=== PATIENT | male | born 1955 | race Caucasian/White ===

== ENCOUNTER 2018-10-27 12:11 | Inpatient (IN) | payer MEDICAID ==
[~2018-10-27] VITALS: Ht 198.1 cm; Wt 96.2 kg
[2018-10-27 12:15] VITALS: BP 178/84
--- NOTE | 2018-10-27 12:15 | NUR ---
ED Nurse Note: BROUGHT IN BY RA 26 FROM HOME DUE TO ALOC. PER PT, HE MISSED DIALYSIS TODAY BECAUSE HE WAS FEELING "WIERD". PT STATES THAT HIS AMMONIA WAS OFF WHENEVER HE FELT THIS WAY. DIALYSIS DAYS ARE T//SAT.
--- NOTE | 2018-10-27 12:16 | NUR ---
ED Nurse Note: PROSTHTIC ON THE LEFT LEG
[2018-10-27] MEDS ORDERED: METOLAZONE5 MG PO (12:31)
[2018-10-27] MEDS ORDERED: LACTULOSE20 GM/301 ORAL (12:31)
[2018-10-27] MEDS ORDERED: METOPROLOL TAR100 M1 ORAL (12:31)
[2018-10-27] MEDS ORDERED: CATAPRES0.2 MG ORAL (12:31)
[2018-10-27] MEDS ORDERED: HYDRALAZINE HCL10 MG ORAL (12:31)
[2018-10-27] MEDS ORDERED: FERROUS SULFAT325 MG ORAL (12:31)
[2018-10-27] MEDS ORDERED: FOLIC ACID1 MG ORAL (12:31)
[2018-10-27] MEDS ORDERED: NIFEDIPINE ER60 M3 ORAL (12:31)
[2018-10-27 12:47] LABS: BASOPHILS % (AUTO) 2.5 % (0.0-2.0); EOSINOPHILS % (AUTO) 4.3 % (0.0-3.0); HEMATOCRIT 26.8 % (42.0-52.0); HEMOGLOBIN 8.8 G/DL (14.2-18.0); LYMPHOCYTES % (AUTO) 21.2 % (20.0-45.0); MEAN CORPUSCULAR VOLUME 94 FL (80-99); MONOCYTES % (AUTO) 10.3 % (1.0-10.0); NEUTROPHILS % (AUTO) 61.7 % (45.0-75.0); PLATELET COUNT 100 K/UL (150-450); RED BLOOD COUNT 2.87 M/UL (4.70-6.10); RED CELL DISTRIBUTION WIDTH 13.7 % (11.6-14.8)
[2018-10-27 12:57] LABS: SODIUM 138 MMOL/L (136-145)
[2018-10-27 13:00] LABS: INR 1.5 (0.9-1.1)
[2018-10-27 13:04] LABS: ANION GAP 8 mmol/L (5-15); BLOOD UREA NITROGEN 51 mg/dL (7-18); CALCIUM 8.1 MG/DL (8.5-10.1); CARBON DIOXIDE 23 MMOL/L (21-32); CHLORIDE 107 MMOL/L (98-107); CREATININE 4.8 MG/DL (0.55-1.30)
[2018-10-27 13:21] LABS: APPEARANCE,URINE CLEAR; BILIRUBIN, URINE NEGATIVE (NEGATIVE); COLOR,URINE PALE YELLOW; GLUCOSE, URINE (UA) 2+ (NEGATIVE); KETONES,URINE NEGATIVE (NEGATIVE); LEUKOCYTE ESTERASE ,URINE NEGATIVE (NEGATIVE); NITRITE,URINE NEGATIVE (NEGATIVE); PH,URINE 7 (4.5-8.0); PROTEIN,URINE 4+ (NEGATIVE); UROBILINOGEN,URINE NORMAL MG/DL (0.0-1.0)
[2018-10-27 13:24] LABS: AMMONIA 108 umol/L (11-32)
[2018-10-27 13:30] LABS: ALANINE AMINOTRANSFERASE 25 U/L (12-78); ALKALINE PHOSPHATASE 152 U/L (46-116); ASPARTATE AMINO TRANSFERASE 33 U/L (15-37); BILIRUBIN,TOTAL 0.5 MG/DL (0.2-1.0)
[2018-10-27 13:45] LABS: ALBUMIN 2.1 G/DL (3.4-5.0)
[2018-10-27 14:30] VITALS: BP 164/73
[2018-10-27] MEDS ORDERED: Lactulose 20gm/30ml UDC ORAL ONE (14:30)
--- NOTE | 2018-10-27 15:09 | NUR ---
ED Nurse Note: ATTEMPTED TO GIVE REPORT TO 4E, NO NURSE RECEIVED THE CALL AT THIS TIME. WILL CALL BACK.
--- NOTE | 2018-10-27 15:12 | Emergency Room Report ---
History of Present Illness General Chief Complaint: Altered Level of Consciousness Source: Patient, Family Member Present Illness HPI Patient presents emergency department today with acute altered mental status. Patient apparently has not been feeling well. And then was supposed to go to a bar still to get dialysis but because his confusion cannot make it. Patient was in alcoholic in the past has history of liver cirrhosis. His ammonia level fluctuant appears be elevated today according to patient's which is why seems to be confused or no other complaints are noted. Symptoms noted to be severe. No other modifying factors. No other associated signs and symptoms. No other complaints were noted. Allergies: Coded Allergies: No Known Allergies (Unverified , 10/27/18) Patient History Past Medical History: DM, HTN, renal disease, dialysis, other - Liver cirrhosis Past Surgical History: other - Jim catheter Pertinent Family History: none Social History: Denies: smoking, alcohol use, drug use Reviewed Nursing Documentation: PMH: Agreed; PSxH: Agreed Nursing Documentation-PMH Past Medical History: No History, Except For Hx Hypertension: Yes Hx Diabetes: Yes - cirrhosis Hx Dialysis: Yes - tue, thurs and sat Review of Systems All Other Systems: negative except mentioned in HPI Physical Exam Vital Signs Date Time Temp Pulse Resp B/P (MAP) Pulse Ox O2 Delivery O2 Flow Rate FiO2 10/27/18 12:11 99.3 78 18 176/82 100 Room Air Sp02 EP Interpretation: reviewed, normal General Appearance: alert, moderate distress Head: normocephalic, atraumatic Eyes: bilateral eye normal inspection ENT: normal ENT inspection, hearing grossly normal, normal voice Neck: normal inspection, full range of motion, supple, no bony tend Respiratory: no respiratory distress, no retraction, decreased breath sounds, crackles - Right lower lobe Cardiovascular #1: regular rate, rhythm, no edema Gastrointestinal: normal inspection, normal bowel sounds, non tender, soft, no guarding, no hernia Genitourinary: no CVA tenderness Musculoskeletal: back normal, normal range of motion, other - Left BKA Neurologic: normal inspection, alert, responsive, speech normal Psychiatric: normal inspection, depressed affect, anxious Skin: normal inspection, normal color, no rash Medical Decision Making Diagnostic Impression: Primary Impression: Altered level of consciousness Additional Impression: Hepatic encephalopathy ER Course Patient percent emergency department today with acute altered mental status. Differential considerations include acute electrolyte abnormality, acute infectious process, fluid overload just to name a few.Given the severity of the patient's presentation I felt this is a highly complex patient. This patient required extensive workup. Patient's laboratory workup shows an elevated ammonia level. Patient also has evidence of mild fluid overload. Patient will require admission for dialysis. Patient was given lactulose. Case was discussed in detail with Dr. Allison Baig and Dr. Bob Hogan. Patient will be admitted to [facility] for further treatment. Labs Test 10/27/18 12:30 10/27/18 12:45 White Blood Count 4.0 K/UL (4.8-10.8) Red Blood Count 2.87 M/UL (4.70-6.10) Hemoglobin 8.8 G/DL (14.2-18.0) Hematocrit 26.8 % (42.0-52.0) Mean Corpuscular Volume 94 FL (80-99) Mean Corpuscular Hemoglobin 30.8 PG (27.0-31.0) Mean Corpuscular Hemoglobin Concent 32.8 G/DL (32.0-36.0) Red Cell Distribution Width 13.7 % (11.6-14.8) Platelet Count 100 K/UL (150-450) Mean Platelet Volume 6.8 FL (6.5-10.1) Neutrophils (%) (Auto) 61.7 % (45.0-75.0) Lymphocytes (%) (Auto) 21.2 % (20.0-45.0) Monocytes (%) (Auto) 10.3 % (1.0-10.0) Eosinophils (%) (Auto) 4.3 % (0.0-3.0) Basophils (%) (Auto) 2.5 % (0.0-2.0) Prothrombin Time 15.2 SEC (9.30-11.50) Prothromb Time International Ratio 1.5 (0.9-1.1) Activated Partial Thromboplast Time 28 SEC (23-33) Sodium Level 138 MMOL/L (136-145) Potassium Level 5.0 MMOL/L (3.5-5.1) Chloride Level 107 MMOL/L (98-107) Carbon Dioxide Level 23 MMOL/L (21-32) Anion Gap 8 mmol/L (5-15) Blood Urea Nitrogen 51 mg/dL (7-18) Creatinine 4.8 MG/DL (0.55-1.30) Estimat Glomerular Filtration Rate 12.4 mL/min (>60) Glucose Level 179 MG/DL (74-106) Calcium Level 8.1 MG/DL (8.5-10.1) Total Bilirubin 0.5 MG/DL (0.2-1.0) Aspartate Amino Transf (AST/SGOT) 33 U/L (15-37) Alanine Aminotransferase (ALT/SGPT) 25 U/L (12-78) Alkaline Phosphatase 152 U/L (46-116) Ammonia 108 umol/L (11-32) Total Protein 6.3 G/DL (6.4-8.2) Albumin 2.1 G/DL (3.4-5.0) Globulin 4.2 g/dL Lipase 300 U/L (73-393) Urine Color Pale yellow Urine Appearance Clear Urine pH 7 (4.5-8.0) Urine Specific [place] 1.005 (1.005-1.035) Urine Protein 4+ (NEGATIVE) Urine Glucose (UA) 2+ (NEGATIVE) Urine Ketones Negative (NEGATIVE) Urine Blood 2+ (NEGATIVE) Urine Nitrite Negative (NEGATIVE) Urine Bilirubin Negative (NEGATIVE) Urine Urobilinogen Normal MG/DL (0.0-1.0) Urine Leukocyte Esterase Negative (NEGATIVE) Urine RBC 2-4 /HPF (0 - 0) Urine WBC 0 /HPF (0 - 0) Urine Squamous Epithelial Cells None /LPF (NONE/OCC) Urine Bacteria None /HPF (NONE) Chest X-Ray Diagnostic Results Chest X-Ray Diagnostic Results : Chest X-Ray Ordered: Yes # of Views/Limited/Complete: 1 View Indication: Shortness of Breath EP Interpretation: Yes Interpretation: no consolidation, other - Right pleural effusion. Jim catheter in place. Cardiomegaly. Left lower athlectasis Impression: Other - Pleural effusion Electronically Signed by: Electronically signed by Ajay Groves MD Last Vital Signs Date Time Temp Pulse Resp B/P (MAP) Pulse Ox O2 Delivery O2 Flow Rate FiO2 10/27/18 12:15 78 18 Room Air 10/27/18 12:15 99.3 178/84 100 Status: improved Disposition: ADMITTED INPATIENT Condition: Serious Referrals: NON PHYSICIAN (PCP) Ajay Groves MD Oct 27, 2018 15:12
--- NOTE | 2018-10-27 15:38 | NUR ---
ED Nurse Note: TELEPHONE REPORT GIVEN TO MELISSA SMILEY FROM 3E. PER MELISSA SMILEY, NO BED AVAILABLE AT THIS TIME, WILL CALL BACK WHEN THE BED IS READY. NOTIFIED SHARAD PRAKASH.
--- NOTE | 2018-10-27 15:51 | Consultation ---
Consult Note Consult Note asked to eval for dialysis management- Newly started on HD Was supposed to go to [facility] for dialysis today Patient presents emergency department today with acute altered mental status. Patient apparently has not been feeling well. And then was supposed to go to a bar still to get dialysis but because his confusion cannot make it. Patient was in alcoholic in the past has history of liver cirrhosis. His ammonia level fluctuant appears be elevated today according to patient's which is why seems to be confused or no other complaints are noted. Symptoms noted to be severe. No other modifying factors. No other associated signs and symptoms. No other complaints were noted. No Known Allergies (Unverified , 10/27/18) Past Medical History: DM, HTN, renal disease, dialysis, other - Liver cirrhosis Past Surgical History: other - Jim catheter Past Medical History: No History, Except For Hx Hypertension: Yes Hx Diabetes: Yes - cirrhosis Hx Dialysis: Yes - tue, thurs and sat seen in ER present examined data reviewed Assessment/Plan ESRD right permacath Hepatic Encephalopathy Anemia of CKD DM HTN HD in am lactulose Renal diet phos binders EPO BP meds per orders Bob Hogan MD Oct 27, 2018 15:51
[2018-10-27 16:20] VITALS: BP_SYST 169; BP_DIAS 78; BP_DIAS 89
--- NOTE | 2018-10-27 16:25 | NUR ---
TRANSFER TO FLOOR: Patient transferred to #[id number] as ordered via gurl[place]on with SUMA Zamora. Report given to MELISSA Martinez. Belongings given to patient. Family at the bedside. No s/s of distress.
--- NOTE | 2018-10-27 16:27 | Diagnostic Imaging Report ---
Indication: Cough Technique: One view of the chest Comparison: 11/10/2011 Findings: There is a right jugular tunneled dialysis catheter, tip of which projects at the level of the mid right innominate vein. There is a massive right pleural effusion, occupying well over 50% of the right hemithorax. There is crowding of the bronchovascular markings of the right lung and possibly some edema. There is a smaller but still sizable left pleural effusion. The heart is enlarged. Impression: Malpositioned tunneled dialysis catheter. This finding was discussed by phone with Dr. Hogan at the time of interpretation Massive right pleural effusion, occupying well over 50% of the right hemithorax Smaller but still sizable left pleural effusion
[2018-10-27 16:35] VITALS: BP 127/91
--- NOTE | 2018-10-27 17:50 | NUR ---
NURSE NOTES: Received report from Ben RN at 1538. Patient arrived to unit at 1632 via gurney accompanied by EMT. Belongings reviewed and present. Patient is alert and oriented x4, no s/s acute distress noted. VS assessed and stable. Patient came with LAC IV, but IV was accidentally pulled out by patient. Patient also has LORAINE AV shunt and right upper chest dialysis catheter, both are not accessed. Patient has left BKA with prosthesis. Fall precautions implemented. Patient has sacral non-blanchable redness. Photo taken and uploaded. Put calazime cream on sacrum and called central supply to send SPR mattress for patient. Called Dr. Mcpherson for further admit order and to inform MD of patient abnormal labs. Side rails upx3, bed low and locked, bed alarm armed, call light in reach. Will continue to monitor.
--- NOTE | 2018-10-27 18:30 | NUR ---
NURSE NOTES: Received callback from Dr. Mcpherson. MD is aware of patient's Hbg and platelets. MD ordered for ambulation as DVT prophylaxis due to RLE swelling and low platelet count. All orders entered. Limb alert band placed on patient and sign placed above bed. Will continue to monitor.
[2018-10-27] MEDS: Lactulose 20gm/30ml UDC ORAL SCH (18:42)
[2018-10-27] MEDS: HydrALAZINE 25mg tab ORAL SCH ×2 (18:43→23:45)
--- NOTE | 2018-10-27 19:45 | NUR ---
NURSE NOTES: Report taken from MELISSA Martinez. Patient is awake and in bed, A&Ox4, very talkative. Showing no signs of distress on room air. Does have a strong non-productive cough, usually occurs when he goes from sitting to lying down. No complaints of pain. Small stage 1 wound on left sacral/buttock area, applied calazime lotion continue to monitor. SPR mattress applied to bed. Having some trace swelling on his right LE. Prosthesis present on Left LE. Has a shunt on both is Right forearm and right clavicle area, bruits present. Dialysis T/TH/S. Patient has no IV site currently, will attempt to place new IV during shift. Bed in lowest position, call light within reach.
[2018-10-27 20:00] VITALS: BP 187/83
--- NOTE | 2018-10-27 20:14 | NUR ---
HAND-OFF: Report given to Rayo TORRES. Patient in stable condition.
[2018-10-27] MEDS: cloNIDine 0.2mg Tab ORAL SCH (21:17)
[2018-10-27] MEDS: Tamsulosin 0.4mg cap ORAL SCH (21:17)
[2018-10-27] MEDS: NovoLOG Insulin Flexpen SUBQ SCH (21:21)
[2018-10-28] VITALS (7 sets, daily range): BP systolic 109–151; BP diastolic 50–83
[2018-10-28] MEDS: HydrALAZINE 25mg tab ORAL SCH ×4 (06:19→23:35)
[2018-10-28] MEDS: Calcium Acetate 667mg Tab ORAL SCH ×3 (06:19→16:59)
[2018-10-28] MEDS: cloNIDine 0.2mg Tab ORAL SCH ×3 (06:19→22:00)
[2018-10-28] MEDS: NovoLOG Insulin Flexpen SUBQ SCH ×4 (06:22→20:48)
[2018-10-28 07:06] LABS: HEMATOCRIT 24.8 % (42.0-52.0); HEMOGLOBIN 8.1 G/DL (14.2-18.0); MEAN CORPUSCULAR VOLUME 95 FL (80-99); PLATELET COUNT 78 K/UL (150-450); RED BLOOD COUNT 2.62 M/UL (4.70-6.10); RED CELL DISTRIBUTION WIDTH 13.6 % (11.6-14.8); WHITE BLOOD COUNT 2.5 K/UL (4.8-10.8)
[2018-10-28 07:32] LABS: ALANINE AMINOTRANSFERASE 24 U/L (12-78); ALBUMIN 1.8 G/DL (3.4-5.0); ALBUMIN/GLOBULIN RATIO 0.5 (1.0-2.7); ALKALINE PHOSPHATASE 134 U/L (46-116); ANION GAP 12 mmol/L (5-15); ASPARTATE AMINO TRANSFERASE 26 U/L (15-37); BILIRUBIN,TOTAL 0.7 MG/DL (0.2-1.0); BLOOD UREA NITROGEN 54 mg/dL (7-18); CALCIUM 8.4 MG/DL (8.5-10.1); CARBON DIOXIDE 22 MMOL/L (21-32); CHLORIDE 109 MMOL/L (98-107); CHOLESTEROL 125 MG/DL (< 200); CREATINE KINASE 91 U/L (26-308); CREATININE 5.1 MG/DL (0.55-1.30); FERRITIN 296 NG/ML (8-388); GAMMA GLUTAMYL TRANSPEPTIDASE 45 U/L (5-85); HDL CHOLESTEROL 67 MG/DL (40-60); PHOSPHORUS 5.3 MG/DL (2.5-4.9); POTASSIUM 4.4 MMOL/L (3.5-5.1); SODIUM 142 MMOL/L (136-145); TRIGLYCERIDES 38 MG/DL (30-150)
--- NOTE | 2018-10-28 07:45 | NUR ---
HAND-OFF: Report given to MELISSA Carrasco.
--- NOTE | 2018-10-28 08:00 | NUR ---
NURSE NOTES: Received report from Rayo TORRES. pt a/a/o x4 laying in bed with no signs of distress or other issues at this time. pt's prosthesis in place with no skin issues. pt in a renal diet able to tolerated well. IV on the left hand gauge #24 heplock. call light within reach. bed in lowest position. side rales up x2. I will f/u as needed.
[2018-10-28 08:03] LABS: % IRON SATURATION 31 % (15-50); IRON 55 ug/dL (50-175); TOTAL IRON BINDING CAPACITY 179 ug/dL (250-450)
[2018-10-28] MEDS: Lactulose 20gm/30ml UDC ORAL SCH ×3 (10:02→17:02)
--- NOTE | 2018-10-28 10:03 | NUR ---
NURSE NOTES: Radiology notified regarding Dr. Arnett order regarding displaced dialysis port to adjust will continue to follow up.
--- NOTE | 2018-10-28 13:26 | Nephrology Progress Note ---
Assessment/Plan Problem List: (1) Hepatic encephalopathy (2) ESRD (end stage renal disease) (3) Hypertensive kidney disease (4) Diabetic nephropathy Assessment ESRD right permacath Hepatic Encephalopathy Anemia of CKD DM HTN Plan Right Permacath not in proper position- Radiology to redo / reposition HD in am lactulose Renal diet phos binders EPO BP meds per orders Subjective ROS Limited/Unobtainable: No Constitutional: Reports: malaise Objective Objective Last 24 Hour Vital Signs Date Time Temp Pulse Resp B/P (MAP) Pulse Ox O2 Delivery O2 Flow Rate FiO2 10/28/18 12:43 146/83 10/28/18 10:03 70 118/75 10/28/18 10:02 70 118/75 10/28/18 06:19 151/69 10/28/18 06:19 151/69 10/28/18 04:00 97.2 66 18 151/69 (96) 99 10/28/18 00:00 98.0 61 18 148/75 (99) 99 10/27/18 23:45 148/75 10/27/18 21:17 74 187/83 10/27/18 21:17 187/83 10/27/18 21:00 Room Air 10/27/18 20:00 98.5 74 20 187/83 (117) 98 10/27/18 18:43 127/91 10/27/18 17:40 Room Air 10/27/18 16:35 98.2 75 18 127/91 (103) 98 10/27/18 16:25 98.9 69 12 169/78 100 Room Air 10/27/18 16:20 98.9 70 12 169/78 100 Room Air 10/27/18 14:30 99.3 70 15 164/73 100 Room Air Intake and Output 10/27/18 10/28/18 19:00 07:00 Intake Total 240 ml Balance 240 ml Intake Oral 240 ml # Voids 1 # Bowel Movements 1 Laboratory Tests 10/28/18 06:00: White Blood Count 2.5L, Red Blood Count 2.62L, Hemoglobin 8.1L, Hematocrit 24.8L , Mean Corpuscular Volume 95, Mean Corpuscular Hemoglobin 31.0, Mean Corpuscular Hemoglobin Concent 32.7, Red Cell Distribution Width 13.6, Platelet Count 78L, Mean Platelet Volume 6.0L, Neutrophils (%) (Auto) , Lymphocytes (%) ( Auto) , Monocytes (%) (Auto) , Eosinophils (%) (Auto) , Basophils (%) (Auto) , Differential Total Cells Counted 100, Neutrophils % (Manual) 52, Lymphocytes % ( Manual) 36, Monocytes % (Manual) 8, Eosinophils % (Manual) 4H, Basophils % ( Manual) 0, Band Neutrophils 0, Platelet Estimate DecreasedL, Platelet Morphology Normal, Hypochromasia 1+, Sodium Level 142, Potassium Level 4.4, Chloride Level 109H, Carbon Dioxide Level 22, Anion Gap 12, Blood Urea Nitrogen 54H, Creatinine 5.1H, Estimat Glomerular Filtration Rate 11.6, Glucose Level 147H, Hemoglobin A1c 6.6H, Uric Acid 5.6, Calcium Level 8.4L, Phosphorus Level 5.3H, Magnesium Level 2.1, Iron Level 55, Total Iron Binding Capacity 179L, Percent Iron Saturation 31, Unsaturated Iron Binding 124, Ferritin 296, Total Bilirubin 0.7, Gamma Glutamyl Transpeptidase 45, Aspartate Amino Transf (AST/ SGOT) 26, Alanine Aminotransferase (ALT/SGPT) 24, Alkaline Phosphatase 134H, Total Creatine Kinase 91, Pro-B-Type Natriuretic Peptide 95953B, Total Protein 5.6L, Albumin 1.8L, Globulin 3.8, Albumin/Globulin Ratio 0.5L, Triglycerides Level 38, Cholesterol Level 125, LDL Cholesterol 56, HDL Cholesterol 67H, Cholesterol/HDL Ratio 1.9L, Vitamin B12 Level 1278H, Folate 32.1, Thyroid Stimulating Hormone (TSH) 2.603 Height (Feet): 6 Height (Inches): 5.00 Weight (Pounds): 216 General Appearance: no apparent distress Cardiovascular: normal rate Respiratory/Chest: decreased breath sounds Abdomen: distended Bob Hogan MD Oct 28, 2018 13:26
--- NOTE | 2018-10-28 14:16 | GI Initial Consult Note ---
History of Present Illness General Date patient seen: Oct 28, 2018 Time patient seen: 14:10 Reason for Hospitalization: Altered Level of Consciousness Referring physician: ALISIA KING Reason for Consultation: Hepatic encephalopathy Present Illness HPI Pt presents emergency department today with acute altered mental status. Patient apparently has not been feeling well. And then was supposed to go to a bar still to get dialysis but because his confusion cannot make it. Patient was in alcoholic in the past has history of liver cirrhosis. His ammonia level fluctuant appears be elevated today according to patient's which is why seems to be confused or no other complaints are noted. Symptoms noted to be severe. No other modifying factors. No other associated signs and symptoms. No other complaints were noted. GI consulted for hepatic encephalopathy. Patient seen, awake alert and oriented x4 no apparent distress. No active signs or symptoms of nausea or vomiting. The patient denies any melena emesis or coffee grounds. Denies any hematochezia or melena. Patient has a history of cirrhosis, admitted with an ammonia level of 108. In addition has pancytopenia and hyper coagulation. The patient stated stated he had a recent colonoscopy approximately 1 year ago, but cannot recall the results. Is unsure of his last endoscopy or imaging study, states it was done a long time ago. The patient also states that he recently had a thoracentesis a week ago with approximately 1 L of yield. Home Meds Reported Medications Lactulose (LACTULOSE*) 20 Gm/30 Ml Solution, ORAL, ML 0 Refills 10/27/18 Nifedipine Er* (NIFEDIPINE ER*) 60 Mg Tab.er.24, 60 MG ORAL DAILY, TAB 10/27/18 Ferrous Sulfate* (FERROUS SULFATE*) 325 Mg Tablet, 325 MG ORAL THREE TIMES A DAY , #90 TAB 0 Refills 10/27/18 Folic Acid* (FOLIC ACID*) 1 Mg Tablet, 1 MG ORAL DAILY, TAB 10/27/18 Metolazone (METOLAZONE) 5 Mg Tablet, 5 MG PO BID, TAB 10/27/18 Clonidine Hcl* (CATAPRES*) 0.2 Mg Tablet, 0.2 MG ORAL Q8HR, TAB 10/27/18 Metoprolol Tartrate* (METOPROLOL TARTRATE*) 100 Mg Tablet, 100 MG ORAL EVERY 12 HOURS, TAB 10/27/18 Hydralazine Hcl* (HYDRALAZINE HCL*) 10 Mg Tablet, 25 MG ORAL EVERY 6 HOURS, TAB 10/27/18 Med list reviewed/reconciled: Yes Allergies: Coded Allergies: No Known Allergies (Unverified , 10/27/18) Patient History History Provided By: Patient, Medical Record PMH Narrative Past Medical History: DM, HTN, renal disease, dialysis, other - Liver cirrhosis Past Surgical History: other - Jim catheter Pertinent Family History: none Social History: Denies: smoking, alcohol use, drug use Reviewed Nursing Documentation: PMH: Agreed; PSxH: Agreed Nursing Documentation-PMH Past Medical History: No History, Except For Hx Hypertension: Yes Hx Diabetes: Yes - cirrhosis Hx Dialysis: Yes - tue, thurs and sat Social History: Reports: alcohol use - History of abuse Review of Systems All Other Systems: negative except mentioned in HPI Physical Exam Vital Signs Date Time Temp Pulse Resp B/P (MAP) Pulse Ox O2 Delivery O2 Flow Rate FiO2 10/27/18 12:11 99.3 78 18 176/82 100 Room Air Sp02 EP Interpretation: reviewed, normal Labs Laboratory Tests Test 10/28/18 06:00 White Blood Count 2.5 K/UL (4.8-10.8) L Red Blood Count 2.62 M/UL (4.70-6.10) L Hemoglobin 8.1 G/DL (14.2-18.0) L Hematocrit 24.8 % (42.0-52.0) L Mean Corpuscular Volume 95 FL (80-99) Mean Corpuscular Hemoglobin 31.0 PG (27.0-31.0) Mean Corpuscular Hemoglobin Concent 32.7 G/DL (32.0-36.0) Red Cell Distribution Width 13.6 % (11.6-14.8) Platelet Count 78 K/UL (150-450) L Mean Platelet Volume 6.0 FL (6.5-10.1) L Neutrophils (%) (Auto) % (45.0-75.0) Lymphocytes (%) (Auto) % (20.0-45.0) Monocytes (%) (Auto) % (1.0-10.0) Eosinophils (%) (Auto) % (0.0-3.0) Basophils (%) (Auto) % (0.0-2.0) Differential Total Cells Counted 100 Neutrophils % (Manual) 52 % (45-75) Lymphocytes % (Manual) 36 % (20-45) Monocytes % (Manual) 8 % (1-10) Eosinophils % (Manual) 4 % (0-3) H Basophils % (Manual) 0 % (0-2) Band Neutrophils 0 % (0-8) Platelet Estimate Decreased L Platelet Morphology Normal Hypochromasia 1+ Sodium Level 142 MMOL/L (136-145) Potassium Level 4.4 MMOL/L (3.5-5.1) Chloride Level 109 MMOL/L (98-107) H Carbon Dioxide Level 22 MMOL/L (21-32) Anion Gap 12 mmol/L (5-15) Blood Urea Nitrogen 54 mg/dL (7-18) H Creatinine 5.1 MG/DL (0.55-1.30) H Estimat Glomerular Filtration Rate 11.6 mL/min (>60) Glucose Level 147 MG/DL (74-106) H Hemoglobin A1c 6.6 % (4.3-6.0) H Uric Acid 5.6 MG/DL (2.6-7.2) Calcium Level 8.4 MG/DL (8.5-10.1) L Phosphorus Level 5.3 MG/DL (2.5-4.9) H Magnesium Level 2.1 MG/DL (1.8-2.4) Iron Level 55 ug/dL (50-175) Total Iron Binding Capacity 179 ug/dL (250-450) L Percent Iron Saturation 31 % (15-50) Unsaturated Iron Binding 124 ug/dL (112-346) Ferritin 296 NG/ML (8-388) Total Bilirubin 0.7 MG/DL (0.2-1.0) Gamma Glutamyl Transpeptidase 45 U/L (5-85) Aspartate Amino Transf (AST/SGOT) 26 U/L (15-37) Alanine Aminotransferase (ALT/SGPT) 24 U/L (12-78) Alkaline Phosphatase 134 U/L (46-116) H Total Creatine Kinase 91 U/L (26-308) Pro-B-Type Natriuretic Peptide 05101 pg/mL (0-125) H Total Protein 5.6 G/DL (6.4-8.2) L Albumin 1.8 G/DL (3.4-5.0) L Globulin 3.8 g/dL Albumin/Globulin Ratio 0.5 (1.0-2.7) L Triglycerides Level 38 MG/DL (30-150) Cholesterol Level 125 MG/DL (< 200) LDL Cholesterol 56 mg/dL (<100) HDL Cholesterol 67 MG/DL (40-60) H Cholesterol/HDL Ratio 1.9 (3.3-4.4) L Vitamin B12 Level 1278 PG/ML (193-986) H Folate 32.1 NG/ML (8.6-58.9) Thyroid Stimulating Hormone (TSH) 2.603 uiU/mL (0.358-3.740) General Appearance: well appearing, no apparent distress, alert Head: normocephalic EENT: PERRL/EOMI, normal ENT inspection Neck: supple Respiratory: normal breath sounds, no respiratory distress Cardiovascular: normal rate Gastrointestinal: normal inspection, non tender, soft, normal bowel sounds, non -distended, other - Abdominal hernia Rectal: deferred Genitourinary: deferred Musculoskeletal: normal inspection, back normal Neurologic: normal inspection, alert, oriented x3, responsive Psychiatric: normal inspection, judgement/insight normal, memory normal Skin: normal inspection, normal color, no rash, warm/dry, palpation normal, well hydrated Lymphatic: normal inspection, no adenopathy Current Medications Current Medications Medications (Trade) Dose Ordered Sig/Elsa Route PRN Reason Start Time Stop Time Status Last Admin Dose Admin Acetaminophen (Tylenol) 650 mg Q4H PRN ORAL Mild Pain/Temp > 100.5 10/27/18 16:00 11/26/18 15:59 Calcium Acetate (Phoslo) 1,334 mg TIAC ORAL 10/28/18 16:30 11/27/18 06:29 Clonidine HCl (Catapres tab) 0.2 mg Q8HR ORAL 10/27/18 22:00 11/26/18 21:59 10/28/18 06:19 Dextrose (Dextrose 50%) 25 ml Q30M PRN IV Hypoglycemia 10/27/18 18:15 11/26/18 18:14 Dextrose (Dextrose 50%) 50 ml Q30M PRN IV Hypoglycemia 10/27/18 18:15 11/26/18 18:14 Epoetin Jesse (Procrit (for ESRD on dialysis)) 10,000 units FRI-FRI-FRI SUBQ 10/28/18 21:00 11/27/18 20:59 Hydralazine HCl (Apresoline) 25 mg EVERY 6 HOURS ORAL 10/27/18 18:00 11/26/18 17:59 10/28/18 12:43 Insulin Aspart (NovoLOG) BEFORE MEALS AND HS SUBQ 10/27/18 21:00 11/26/18 20:59 10/28/18 12:43 Lactulose (Cephulac) 30 gm THREE TIMES A DAY ORAL 10/27/18 18:00 11/26/18 17:59 10/28/18 12:42 Metoprolol Tartrate (Lopressor) 100 mg EVERY 12 HOURS ORAL 10/27/18 21:00 11/26/18 20:59 10/28/18 10:03 Nifedipine (Procardia XL) 60 mg DAILY ORAL 10/28/18 09:00 11/27/18 08:59 10/28/18 10:02 Pantoprazole (Protonix) 40 mg Q12HR ORAL 10/27/18 21:00 11/26/18 20:59 10/28/18 10:02 Rifaximin (Xifaxan) 550 mg EVERY 12 HOURS ORAL 10/28/18 21:00 11/04/18 20:59 Tamsulosin HCl (Flomax) 0.4 mg BEDTIME ORAL 10/27/18 21:00 11/26/18 20:59 10/27/18 21:17 GI: Plan Problems: (1) ESRD (end stage renal disease) (2) Hepatic encephalopathy (3) Fluid overload (4) Pancytopenia Plan Will consider endoscopy to evaluate anemia, esophageal varices given history of cirrhosis Continue lactulose, will add Xifaxan Advance to renal diet as tolerated Monitor H&H, PRN transfusions PPI Zofran as needed Repeat ammonia levels for tomorrow Discussed with Dr. Mendoza. Thank you for this patient referral, we will follow. The patient was seen and examined at bedside and all new and available data was reviewed in the patients chart. I agree with the above findings, impression and plan. (Patient seen earlier today. Signature stamp does not reflect patient encounter time.). - MD Sheryl Huerta,[facility] Oct 28, 2018 14:16
--- NOTE | 2018-10-28 15:18 | NUR ---
NURSE NOTES: patient out of the floor for tunnel cath placement. pt left the floor via gurney with no signs of distress or other issues at this time. I will f/u as needed.
[2018-10-28] MEDS ORDERED: Heparin Sod 1000 units/ml 10ml INJ SCH (15:30)
[2018-10-28] MEDS ORDERED: Lidocaine 2% 20mg/ml/Epi 0.005mg/ml 20ml vial INJ SCH (15:30)
[2018-10-28] MEDS ORDERED: Heparin 2000 units/Ns 1000ml INJ SCH (15:30)
--- NOTE | 2018-10-28 16:28 | Cardiology Report ---
APPROVED REPORT EXAM: Two-dimensional and M-mode echocardiogram with Doppler and color Doppler. INDICATION Congestive Heart Failure M-Mode DIMENSIONS IVSd1.3 (0.7-1.1cm)Left Atrium (MM)5.5 (1.6-4.0cm) LVDd5.8 (3.5-5.6cm)Aortic Root4.3 (2.0-3.7cm) PWd1.5 (0.7-1.1cm)Aortic Cusp Exc.2.0 (1.5-2.0cm) LVDs3.9 (2.5-4.0cm) PWs1.8 cm Normal left ventricular chamber size, systolic function and wall motion. Left ventricular ejection fraction estimated to be 55-60 %. Mild left ventricular hypertrophy by 2D. No evidence of pericardial effusion. Moderate left atrial enlargement. Mild right atrial enlargement. Right ventricular chamber size is within normal limits. Focal aortic valve sclerosis with adequate cusp excursion. Thickened mitral valve leaflets with normal excursion. Mitral annulus and aortic root calcification. Pulmonic valve not well visualized. Normal tricuspid valve structure. IVC dilated at 3.1 cm with slight physiologic collapse, suggestive of increased RA pressure. A color flow and spectral Doppler study was performed and revealed: Trace aortic regurgitation. Mild to moderate mitral regurgitation. Mitral diastolic velocities suggest reduced left ventricular relaxation c/w mild LV diastolic dysfunction (Grade I). Mild tricuspid regurgitation. Tricuspid systolic velocities suggests peak right ventricular systolic pressure of 50 mmHg, consistent with moderate pulmonary hypertension.
--- NOTE | 2018-10-28 19:38 | NUR ---
HAND-OFF: Report given to Rayo TORRES, pt in stable condition.
--- NOTE | 2018-10-28 19:39 | NUR ---
NURSE NOTES: Report taken from MELISSA Vargas. Patient awake and in bed. patients speech is somewhat slurred, but is A&Ox4. Is showing sings of distress, SOB upon exertion as well as at rest with talking. Has a non-productive cough that has been bothering him. O2 stats at 94. RN notified MD and got order for nasal canula. No pain. Wound on left sacral/buttock area assessed, intact, applied calazime, continue to monitor. IV site c/d/i and patent. Patient able to use bedside commode. Prosthesis off for the evening. Contacted [facility] [phone], will be in 10/29 for dialysis. Bed in lowest position, call light within reach.
[2018-10-28] MEDS: Tamsulosin 0.4mg cap ORAL SCH (20:49)
[2018-10-28] MEDS: Epoetin Alfa(ESRD on dialysis)10,000 unit/ml vial SUBQ SCH (20:49)
--- NOTE | 2018-10-28 22:07 | NUR ---
NURSE NOTES: Held Clonidine (BP<130) per MD order. BP: 117/51
[2018-10-29] VITALS (11 sets, daily range): BP systolic 125–138; BP diastolic 53–74
--- NOTE | 2018-10-29 01:45 | History and Physical Report ---
DATE OF ADMISSION: 10/27/2018 HISTORY OF PRESENT ILLNESS: The patient fluid overload, confusion, and shortness of breath. The patient has left BKA. The patient has a history of alcohol abuse. Has also end-stage renal disease, . The patient has hepatic encephalopathy. He is admitted for AMS. He is on dialysis, has alcoholic cirrhosis and also has elevated ammonia and anemia. Denies nausea, vomiting, or diarrhea. PAST MEDICAL HISTORY: Significant for end-stage renal disease, on hemodialysis, alcoholic cirrhosis, diabetes, history of pancytopenia, and hypertension. PAST SURGICAL HISTORY: Left BKA, dialysis access on the chest wall. SOCIAL HISTORY: History of drug abuse, history of alcohol abuse. FAMILY HISTORY: Noncontributory. REVIEW OF SYSTEMS: HEENT: Denies headaches. RESPIRATORY: Reports shortness of breath. Denies cough. CARDIOVASCULAR: No chest pain. No orthopnea. GASTROINTESTINAL: Denies nausea, vomiting, or diarrhea. Does have mild abdominal pain. CENTRAL NERVOUS SYSTEM: No change in vision or speech pattern, however, did have more confusion yesterday. PHYSICAL EXAMINATION: VITAL SIGNS: Temperature 97.4, pulse is 67, and blood pressure 146/82. HEENT: PERRLA. NECK: Supple. No lymphadenopathy. CHEST: Clear to auscultation. CARDIOVASCULAR: Regular rate and rhythm. No murmurs or extra sounds. GASTROINTESTINAL: Abdomen is distended. Positive bowel sounds. No organomegaly. EXTREMITIES: Has 1+ edema. Reflexes are equal on both sides. NEUROLOGIC: Oriented x2. Moves all four extremities. LABORATORY DATA: WBC of 4, hemoglobin 8.8, and platelets of 100. Sodium 138, potassium 5, BUN of 51, creatinine 4.8, glucose of 179, and ammonia of 108. ASSESSMENT AND PLAN: 1. Pancytopenia. 2. Anemia. 3. End-stage renal disease, on hemodialysis. 4. AMS, could be also possibly due to elevated ammonia level and the patient on dialysis. I have consulted Dr. Mendoza and Dr. Hogan for the management of the above-mentioned diagnoses and treatment. Allison Mcpherson M.D. DR: SAM JOB#: [id number] CC:
[2018-10-29] MEDS: cloNIDine 0.2mg Tab ORAL SCH ×3 (05:47→22:00)
[2018-10-29] MEDS: Calcium Acetate 667mg Tab ORAL SCH ×3 (05:48→17:59)
[2018-10-29] MEDS: HydrALAZINE 25mg tab ORAL SCH ×3 (05:48→17:52)
[2018-10-29] MEDS: NovoLOG Insulin Flexpen SUBQ SCH ×4 (05:52→21:31)
[2018-10-29 06:35] LABS: HEMATOCRIT 25.8 % (42.0-52.0); HEMOGLOBIN 8.4 G/DL (14.2-18.0); MEAN CORPUSCULAR VOLUME 94 FL (80-99); PLATELET COUNT 84 K/UL (150-450); RED BLOOD COUNT 2.74 M/UL (4.70-6.10); RED CELL DISTRIBUTION WIDTH 13.9 % (11.6-14.8)
--- NOTE | 2018-10-29 07:05 | NUR ---
HAND-OFF: Report given to MELISSA Peoples. Patient vitals stable. Going for HD today.
--- NOTE | 2018-10-29 07:07 | NUR ---
NURSE NOTES: Report received from MELISSA Cade. pt in bed, awake, talkative, A/O x4, no complaints of pain, no apparent distress noted, call light within reach, bed in lowest position.
[2018-10-29 07:17] LABS: ALANINE AMINOTRANSFERASE 21 U/L (12-78); ALBUMIN 1.8 G/DL (3.4-5.0); ALBUMIN/GLOBULIN RATIO 0.5 (1.0-2.7); ALKALINE PHOSPHATASE 133 U/L (46-116); ANION GAP 11 mmol/L (5-15); ASPARTATE AMINO TRANSFERASE 23 U/L (15-37); BILIRUBIN,TOTAL 0.7 MG/DL (0.2-1.0); BLOOD UREA NITROGEN 59 mg/dL (7-18); CALCIUM 8.7 MG/DL (8.5-10.1); CARBON DIOXIDE 20 MMOL/L (21-32); CHLORIDE 111 MMOL/L (98-107); CREATININE 5.8 MG/DL (0.55-1.30); PHOSPHORUS 5.3 MG/DL (2.5-4.9); POTASSIUM 4.3 MMOL/L (3.5-5.1); SODIUM 142 MMOL/L (136-145)
[2018-10-29 07:20] LABS: AMMONIA 61 umol/L (11-32)
[2018-10-29] MEDS: Lactulose 20gm/30ml UDC ORAL SCH ×3 (09:23→17:59)
--- NOTE | 2018-10-29 10:40 | GI Progress Note ---
Assessment/Plan Problems: (1) Hepatic encephalopathy ICD Codes: K72.90 - Hepatic failure, unspecified without coma SNOMED: 40840079 (2) Fluid overload ICD Codes: E87.70 - Fluid overload, unspecified SNOMED: 12733844 (3) Pancytopenia ICD Codes: D61.818 - Other pancytopenia SNOMED: 562803948 (4) Hypertensive kidney disease ICD Codes: I12.9 - Hypertensive chronic kidney disease with stage 1 through stage 4 chronic kidney disease, or unspecified chronic kidney disease SNOMED: 33231927 (5) Diabetic nephropathy ICD Codes: E11.21 - Type 2 diabetes mellitus with diabetic nephropathy SNOMED: 537069050 (6) ESRD (end stage renal disease) ICD Codes: N18.6 - End stage renal disease SNOMED: 00155852 (7) Altered level of consciousness ICD Codes: R40.4 - Transient alteration of awareness SNOMED: 1600844 Status: stable Status Narrative Discussed with Dr. Mendoza Assessment/Plan EGD scheduled tomorrow to evaluate anemia, esophageal varices given history of cirrhosis. NPO @ MD. Continue lactulose, will add Xifaxan Advance to renal diet as tolerated Monitor H&H, PRN transfusions PPI Zofran as needed trend ammonia levels dc planning The patient was seen and examined at bedside and all new and available data was reviewed in the patients chart. I agree with the above findings, impression and plan. (Patient seen earlier today. Signature stamp does not reflect patient encounter time.). - Karan Mendoza MD Subjective Gastrointestinal/Abdominal: Reports: no symptoms Objective Last 24 Hour Vital Signs Date Time Temp Pulse Resp B/P (MAP) Pulse Ox O2 Delivery O2 Flow Rate FiO2 10/29/18 09:24 69 131/57 10/29/18 09:23 69 131/57 10/29/18 09:00 Nasal Cannula 3.0 10/29/18 08:00 97.6 69 20 131/57 (81) 96 10/29/18 05:48 125/54 10/29/18 05:47 125/54 10/29/18 04:00 98.3 67 18 125/54 (77) 96 10/28/18 23:59 97.5 62 18 128/62 (84) 96 10/28/18 23:35 128/62 10/28/18 22:00 117/51 10/28/18 21:00 Nasal Cannula 2.0 10/28/18 21:00 97.9 65 16 131/65 (87) 94 10/28/18 20:49 65 131/65 10/28/18 18:00 109/45 10/28/18 16:00 97.3 61 19 109/50 (69) 100 10/28/18 14:00 127/59 10/28/18 12:43 146/83 10/28/18 12:00 97.4 57 19 146/83 (104) 100 Intake and Output 10/28/18 10/29/18 19:00 07:00 Intake Total 460 ml 240 ml Balance 460 ml 240 ml Intake Oral 460 ml 240 ml # Voids 1 Laboratory Tests Test 10/29/18 05:45 White Blood Count 3.0 K/UL (4.8-10.8) L Red Blood Count 2.74 M/UL (4.70-6.10) L Hemoglobin 8.4 G/DL (14.2-18.0) L Hematocrit 25.8 % (42.0-52.0) L Mean Corpuscular Volume 94 FL (80-99) Mean Corpuscular Hemoglobin 30.8 PG (27.0-31.0) Mean Corpuscular Hemoglobin Concent 32.7 G/DL (32.0-36.0) Red Cell Distribution Width 13.9 % (11.6-14.8) Platelet Count 84 K/UL (150-450) L Mean Platelet Volume 6.0 FL (6.5-10.1) L Neutrophils (%) (Auto) % (45.0-75.0) Lymphocytes (%) (Auto) % (20.0-45.0) Monocytes (%) (Auto) % (1.0-10.0) Eosinophils (%) (Auto) % (0.0-3.0) Basophils (%) (Auto) % (0.0-2.0) Differential Total Cells Counted 100 Neutrophils % (Manual) 67 % (45-75) Lymphocytes % (Manual) 23 % (20-45) Monocytes % (Manual) 7 % (1-10) Eosinophils % (Manual) 3 % (0-3) Basophils % (Manual) 0 % (0-2) Band Neutrophils 0 % (0-8) Platelet Estimate Decreased L Platelet Morphology Normal Hypochromasia 1+ Sodium Level 142 MMOL/L (136-145) Potassium Level 4.3 MMOL/L (3.5-5.1) Chloride Level 111 MMOL/L (98-107) H Carbon Dioxide Level 20 MMOL/L (21-32) L Anion Gap 11 mmol/L (5-15) Blood Urea Nitrogen 59 mg/dL (7-18) H Creatinine 5.8 MG/DL (0.55-1.30) H Estimat Glomerular Filtration Rate 10.0 mL/min (>60) Glucose Level 189 MG/DL (74-106) H Calcium Level 8.7 MG/DL (8.5-10.1) Phosphorus Level 5.3 MG/DL (2.5-4.9) H Total Bilirubin 0.7 MG/DL (0.2-1.0) Aspartate Amino Transf (AST/SGOT) 23 U/L (15-37) Alanine Aminotransferase (ALT/SGPT) 21 U/L (12-78) Alkaline Phosphatase 133 U/L (46-116) H Ammonia 61 umol/L (11-32) H C-Reactive Protein, Quantitative 4.5 mg/dL (0.00-0.90) H Pro-B-Type Natriuretic Peptide 51466 pg/mL (0-125) H Total Protein 5.7 G/DL (6.4-8.2) L Albumin 1.8 G/DL (3.4-5.0) L Globulin 3.9 g/dL Albumin/Globulin Ratio 0.5 (1.0-2.7) L Height (Feet): 6 Height (Inches): 5.00 Weight (Pounds): 216 General Appearance: WD/WN, no apparent distress, alert Cardiovascular: normal rate Respiratory/Chest: normal breath sounds, no respiratory distress Abdominal Exam: normal bowel sounds, non tender, soft Extremities: normal range of motion, non-tender Kadeem Saucedo NP Oct 29, 2018 10:40
--- NOTE | 2018-10-29 11:02 | General Progress Note ---
Assessment/Plan Problem List: (1) Hepatic encephalopathy ICD Codes: K72.90 - Hepatic failure, unspecified without coma SNOMED: 60091466 (2) ESRD (end stage renal disease) ICD Codes: N18.6 - End stage renal disease SNOMED: 04211544 (3) Hypertensive kidney disease ICD Codes: I12.9 - Hypertensive chronic kidney disease with stage 1 through stage 4 chronic kidney disease, or unspecified chronic kidney disease SNOMED: 87969499 (4) Diabetic nephropathy ICD Codes: E11.21 - Type 2 diabetes mellitus with diabetic nephropathy SNOMED: 519854214 (5) Fluid overload ICD Codes: E87.70 - Fluid overload, unspecified SNOMED: 68560986 (6) Pancytopenia ICD Codes: D61.818 - Other pancytopenia SNOMED: 014134042 (7) Altered level of consciousness ICD Codes: R40.4 - Transient alteration of awareness SNOMED: 9985791 Status: progressing Assessment/Plan etoh cihhrosis check ammonia level ams due to worsening ammonia?dm htn moniter vitals esrd on hd htn check lytes Subjective ROS Limited/Unobtainable: Yes Allergies: Coded Allergies: No Known Allergies (Unverified , 10/27/18) Objective Last 24 Hour Vital Signs Date Time Temp Pulse Resp B/P (MAP) Pulse Ox O2 Delivery O2 Flow Rate FiO2 10/29/18 09:24 69 131/57 10/29/18 09:23 69 131/57 10/29/18 09:00 Nasal Cannula 3.0 10/29/18 08:00 97.6 69 20 131/57 (81) 96 10/29/18 05:48 125/54 10/29/18 05:47 125/54 10/29/18 04:00 98.3 67 18 125/54 (77) 96 10/28/18 23:59 97.5 62 18 128/62 (84) 96 10/28/18 23:35 128/62 10/28/18 22:00 117/51 10/28/18 21:00 Nasal Cannula 2.0 10/28/18 21:00 97.9 65 16 131/65 (87) 94 10/28/18 20:49 65 131/65 10/28/18 18:00 109/45 10/28/18 16:00 97.3 61 19 109/50 (69) 100 10/28/18 14:00 127/59 10/28/18 12:43 146/83 10/28/18 12:00 97.4 57 19 146/83 (104) 100 Intake and Output 10/28/18 10/29/18 19:00 07:00 Intake Total 460 ml 240 ml Balance 460 ml 240 ml Intake Oral 460 ml 240 ml # Voids 1 Laboratory Tests 10/29/18 05:45: White Blood Count 3.0L, Red Blood Count 2.74L, Hemoglobin 8.4L, Hematocrit 25.8L , Mean Corpuscular Volume 94, Mean Corpuscular Hemoglobin 30.8, Mean Corpuscular Hemoglobin Concent 32.7, Red Cell Distribution Width 13.9, Platelet Count 84L, Mean Platelet Volume 6.0L, Neutrophils (%) (Auto) , Lymphocytes (%) ( Auto) , Monocytes (%) (Auto) , Eosinophils (%) (Auto) , Basophils (%) (Auto) , Differential Total Cells Counted 100, Neutrophils % (Manual) 67, Lymphocytes % ( Manual) 23, Monocytes % (Manual) 7, Eosinophils % (Manual) 3, Basophils % ( Manual) 0, Band Neutrophils 0, Platelet Estimate DecreasedL, Platelet Morphology Normal, Hypochromasia 1+, Sodium Level 142, Potassium Level 4.3, Chloride Level 111H, Carbon Dioxide Level 20L, Anion Gap 11, Blood Urea Nitrogen 59H, Creatinine 5.8H, Estimat Glomerular Filtration Rate 10.0, Glucose Level 189H, Calcium Level 8.7, Phosphorus Level 5.3H, Total Bilirubin 0.7, Aspartate Amino Transf (AST/SGOT) 23, Alanine Aminotransferase (ALT/SGPT) 21, Alkaline Phosphatase 133H, Ammonia 61H, C-Reactive Protein, Quantitative 4.5H, Pro-B-Type Natriuretic Peptide 83539E, Total Protein 5.7L, Albumin 1.8L, Globulin 3.9, Albumin/Globulin Ratio 0.5L Height (Feet): 6 Height (Inches): 5.00 Weight (Pounds): 216 General Appearance: confused Cardiovascular: normal rate Respiratory/Chest: lungs clear Abdomen: soft Allison Mcpherson MD Oct 29, 2018 11:02
--- NOTE | 2018-10-29 11:52 | Nephrology Progress Note ---
Assessment/Plan Problem List: (1) Hepatic encephalopathy (2) ESRD (end stage renal disease) (3) Hypertensive kidney disease (4) Diabetic nephropathy Assessment ESRD right permacath Hepatic Encephalopathy Anemia of CKD DM HTN Plan Right Permacath not in proper position- Radiology to redo / reposition HD today 10/29 lactulose Renal diet phos binders EPO BP meds per orders Subjective ROS Limited/Unobtainable: No Constitutional: Reports: malaise Objective Objective Last 24 Hour Vital Signs Date Time Temp Pulse Resp B/P (MAP) Pulse Ox O2 Delivery O2 Flow Rate FiO2 10/29/18 09:24 69 131/57 10/29/18 09:23 69 131/57 10/29/18 09:00 Nasal Cannula 3.0 10/29/18 08:00 97.6 69 20 131/57 (81) 96 10/29/18 05:48 125/54 10/29/18 05:47 125/54 10/29/18 04:00 98.3 67 18 125/54 (77) 96 10/28/18 23:59 97.5 62 18 128/62 (84) 96 10/28/18 23:35 128/62 10/28/18 22:00 117/51 10/28/18 21:00 Nasal Cannula 2.0 10/28/18 21:00 97.9 65 16 131/65 (87) 94 10/28/18 20:49 65 131/65 10/28/18 18:00 109/45 10/28/18 16:00 97.3 61 19 109/50 (69) 100 10/28/18 14:00 127/59 10/28/18 12:43 146/83 10/28/18 12:00 97.4 57 19 146/83 (104) 100 Intake and Output 10/28/18 10/29/18 19:00 07:00 Intake Total 460 ml 240 ml Balance 460 ml 240 ml Intake Oral 460 ml 240 ml # Voids 1 Laboratory Tests 10/29/18 05:45: White Blood Count 3.0L, Red Blood Count 2.74L, Hemoglobin 8.4L, Hematocrit 25.8L , Mean Corpuscular Volume 94, Mean Corpuscular Hemoglobin 30.8, Mean Corpuscular Hemoglobin Concent 32.7, Red Cell Distribution Width 13.9, Platelet Count 84L, Mean Platelet Volume 6.0L, Neutrophils (%) (Auto) , Lymphocytes (%) ( Auto) , Monocytes (%) (Auto) , Eosinophils (%) (Auto) , Basophils (%) (Auto) , Differential Total Cells Counted 100, Neutrophils % (Manual) 67, Lymphocytes % ( Manual) 23, Monocytes % (Manual) 7, Eosinophils % (Manual) 3, Basophils % ( Manual) 0, Band Neutrophils 0, Platelet Estimate DecreasedL, Platelet Morphology Normal, Hypochromasia 1+, Sodium Level 142, Potassium Level 4.3, Chloride Level 111H, Carbon Dioxide Level 20L, Anion Gap 11, Blood Urea Nitrogen 59H, Creatinine 5.8H, Estimat Glomerular Filtration Rate 10.0, Glucose Level 189H, Calcium Level 8.7, Phosphorus Level 5.3H, Total Bilirubin 0.7, Aspartate Amino Transf (AST/SGOT) 23, Alanine Aminotransferase (ALT/SGPT) 21, Alkaline Phosphatase 133H, Ammonia 61H, C-Reactive Protein, Quantitative 4.5H, Pro-B-Type Natriuretic Peptide 15655T, Total Protein 5.7L, Albumin 1.8L, Globulin 3.9, Albumin/Globulin Ratio 0.5L Height (Feet): 6 Height (Inches): 5.00 Weight (Pounds): 216 General Appearance: no apparent distress Cardiovascular: normal rate Respiratory/Chest: decreased breath sounds Abdomen: soft Objective no change Bob Hogan MD Oct 29, 2018 11:52
[2018-10-29] MEDS ORDERED: Heparin Sod 1000 units/ml 10ml ONE (14:10)
[2018-10-29] MEDS ORDERED: LORazepam Inj 2mg/ml 1ml ONE (14:19)
[2018-10-29] MEDS ORDERED: LORazepam Inj 2mg/ml 1ml IV SCH (14:30)
--- NOTE | 2018-10-29 14:35 | Pre-Procedure Note/Attestation ---
Pre-Procedure Note/Attestation Complete Prior to Procedure Planned Procedure: right Procedure Narrative: Permacath exchange Indications for Procedure Pre-Operative Diagnosis: malpositioned permacath Attestation I attest that I discussed the nature of the procedure; its benefits; risks and complications; and alternatives (and the risks and benefits of such alternatives ), prior to the procedure, with the patient (or the patient's legal claim service representative). I attest that, if there was a reasonable possibility of needing a blood transfusion, the patient (or the patient's legal claim service representative) was given the [facility] standardized written summary, pursuant to the Jefry Jeremy Blood Safety Act ([place] Health and Safety Code # 1645, as amended). I attest that I re-evaluated the patient just prior to the surgery and that there has been no change in the patient's H&P, except as documented below: Bryce Rincon MD Oct 29, 2018 14:35
--- NOTE | 2018-10-29 15:23 | Brief Operative Note ---
Immediate Post Operative Note Operative Note Pre-op Diagnosis: malpositioned permacath Procedure: permacath exchange Post-op Diagnosis: same as pre-op Findings: consistent w/pre-op dx studies Surgeon: Chely RINCON Anesthesia: local Specimen: yes - old permacath sent to path for gross Complications: none Condition: stable Fluids: none Estimated Blood Loss: none Implant(s) used?: Yes - new 28 cm palindrome catheter placed Bryce Rincon MD Oct 29, 2018 15:23
[2018-10-29] MEDS ORDERED: Lidocaine 2% 20mg/ml/Epi 0.005mg/ml 20ml vial ONE (15:24)
[2018-10-29] MEDS ORDERED: ceFAZolin sod 1 GM in D5W 55 ML IVPB ONE (15:30)
--- NOTE | 2018-10-29 16:00 | Diagnostic Imaging Report ---
Indications: Malpositioned dialysis catheter demonstrated on prior chest radiograph Technique: Patient given IV Ancef. Procedural timeout performed. Total sterile technique, including sterile probe cover and sterile gel, sterile gloves, hand hygiene, hat, mask, sterile gown, large sterile drape, and preparation with 2% chlorhexidine utilized. Local anesthesia with 1% lidocaine. An Amplatz guidewire was directed through the venous lumen of the pre-existing catheter, and under fluoroscopic guidance directed into the inferior vena cava. The catheter was removed over the guidewire. A 28 cm long palindrome catheter was then loaded over the guidewire, and advanced under direct fluoroscopic supervision. The cough was placed just deep to the entry site, tip in the high right atrium Digital radiograph documents satisfactory catheter tip position in the high right atrium, no kinking at the insertion site. Both catheter ports aspirated and flushed. Catheter was fixed to the skin. Patient tolerated procedure well without immediate complication. Total fluoroscopy time 37.2 seconds. Total dose area product 0.01310 mGym2 Total number of images-3 Comparison: None. Findings: Completion radiograph documents satisfactory position and course of the catheter, catheter tip at the cavoatrial junction. Impression: Successful exchange of right transjugular tunneled dialysis catheter, as described above
--- NOTE | 2018-10-29 19:42 | NUR ---
HAND-OFF: Report given to MELISSA Gonzalez.
--- NOTE | 2018-10-29 22:08 | NUR ---
NURSE NOTES: Patient in bed, aox3, drowsy, confusion noted. Patient reoriented. Per MELISSA Peoples Patient given ativan 2 mg in radiology. Will continue to monitor. Porticath dressing c/d/i . Due meds given, needs attended to. Bed low, call light within reach.
[2018-10-29] MEDS: Tamsulosin 0.4mg cap ORAL SCH (22:33)
[2018-10-30] VITALS (11 sets, daily range): BP systolic 109–133; BP diastolic 57–68
[2018-10-30] MEDS: HydrALAZINE 25mg tab ORAL SCH ×4 (00:07→17:32)
[2018-10-30] MEDS: cloNIDine 0.2mg Tab ORAL SCH ×3 (06:00→22:00)
[2018-10-30] MEDS: Calcium Acetate 667mg Tab ORAL SCH ×3 (06:21→17:32)
[2018-10-30] MEDS: NovoLOG Insulin Flexpen SUBQ SCH ×4 (06:25→22:04)
[2018-10-30 06:55] LABS: INR 1.6 (0.9-1.1)
[2018-10-30 07:08] LABS: ALANINE AMINOTRANSFERASE 20 U/L (12-78); ALBUMIN 1.8 G/DL (3.4-5.0); ALBUMIN/GLOBULIN RATIO 0.5 (1.0-2.7); ALKALINE PHOSPHATASE 127 U/L (46-116); ANION GAP 9 mmol/L (5-15); ASPARTATE AMINO TRANSFERASE 21 U/L (15-37); BILIRUBIN,TOTAL 0.6 MG/DL (0.2-1.0); BLOOD UREA NITROGEN 33 mg/dL (7-18); CALCIUM 8.1 MG/DL (8.5-10.1); CARBON DIOXIDE 25 MMOL/L (21-32); CHLORIDE 106 MMOL/L (98-107); CREATININE 4.2 MG/DL (0.55-1.30); POTASSIUM 3.7 MMOL/L (3.5-5.1); SODIUM 140 MMOL/L (136-145)
--- NOTE | 2018-10-30 08:05 | NUR ---
NURSE NOTES: Received patient on bed, awake. IV site dislodged. Will attempt to start new one. Bed in low and locked position, call light within reach. No signs of respiratory distress or pain. Room board updated, will continue to monitor. Addendum: 10/30/18 at 1149 by GWENDOLYN DAVIS RN RN Disregard, entered incorectly on wrong patient.
--- NOTE | 2018-10-30 08:10 | NUR ---
NURSE NOTES: Received patient on bed, awake. IV site intact and patent. Bed in low and locked position, call light within reach. No signs of respiratory distress or pain. Room board updated, will continue to monitor.
--- NOTE | 2018-10-30 08:28 | NUR ---
HAND-OFF: Report given to MELISSA Valles. Patient stable.
[2018-10-30] MEDS: Lactulose 20gm/30ml UDC ORAL SCH ×4 (09:00→17:32)
--- NOTE | 2018-10-30 10:29 | Pre-Procedure Note/Attestation ---
Pre-Procedure Note/Attestation Complete Prior to Procedure Planned Procedure: not applicable Procedure Narrative: egd Indications for Procedure Pre-Operative Diagnosis: cirrhosis Attestation I attest that I discussed the nature of the procedure; its benefits; risks and complications; and alternatives (and the risks and benefits of such alternatives ), prior to the procedure, with the patient (or the patient's legal software sales representative). I attest that, if there was a reasonable possibility of needing a blood transfusion, the patient (or the patient's legal software sales representative) was given the [facility] standardized written summary, pursuant to the Jefry Watova Blood Safety Act ([place] Health and Safety Code # 1645, as amended). I attest that I re-evaluated the patient just prior to the surgery and that there has been no change in the patient's H&P, except as documented below: Karan Mendoza MD Oct 30, 2018 10:29
[2018-10-30] MEDS ORDERED: Propofol 200mg/20ml IV ONE (11:00)
[2018-10-30] MEDS ORDERED: LR 1000ml ONE (11:00)
[2018-10-30] MEDS ORDERED: Lidocaine 1% MPF 10mg/ml 5ml ONE (11:00)
[2018-10-30] MEDS ORDERED: NS 500ML IVPB ONE (11:00)
--- NOTE | 2018-10-30 11:08 | Endoscopy Procedure Note ---
Endoscopy Procedure Note General Indication for Procedure: cirrhosis Procedures Performed: EGD Operative Findings/Diagnosis: P HTN gastropathy Specimen: yes Pt Tolerated Procedure Well: Yes Estimated Blood Loss: none Anesthesia Anesthesiologist: duyen Anesthesia: MAC Inserted Devices Implant(s) used?: No GI Core Measures 50 yrs or older w/o bx or poly: Not Applicable 10yrs. F/U not recommended: Not Applicable Karan Mendoza MD Oct 30, 2018 11:08
--- NOTE | 2018-10-30 11:17 | Anethesia Preoperative Eval ---
Anesthesia Pre-op PMH/ROS General Date of Evaluation: Oct 30, 2018 Time of Evaluation: 10:55 Anesthesiologist: karla ASA Score: ASA 3 Mallampati Score Class I : Soft palate, uvula, fauces, pillars visible Class II: Soft palate, uvula, fauces visible Class III: Soft palate, base of uvula visible Class IV: Only hard plate visible Mallampati Classification: Class III Surgeon: krystyna Diagnosis: anemia Surgical Procedure: EGD Anesthesia History: none Family History: no anesthesia problems Allergies: Coded Allergies: No Known Allergies (Unverified , 10/27/18) Medications: see eMAR Patient NPO?: Yes NPO Date: Oct 30, 2018 NPO Time: 00:01 Past Medical History Cardiovascular: Reports: HTN, CAD; Denies: NC, valve dz, arrhythmia, other Pulmonary: Denies: asthma, COPD, TIO, other Gastrointestinal/Genitourinary: Reports: GERD, ESRD - dialysized 10/29/18 Neurologic/Psychiatric: Reports: dementia, other - AMS; Denies: CVA, depression/anxiety, TIA Endocrine: Denies: DM, hypothyroidism, steroids, other HEENT: Denies: cataract (L), cataract (R), glaucoma, WRANGELL (L), WRANGELL (R), other Hematology/Immune: Reports: anemia, bleeding disorder PSxH Narrative: unknown - see H&P Anesthesia Pre-op Phys. Exam Physician Exam Last Vital Signs Date Time Temp Pulse Resp B/P (MAP) Pulse Ox O2 Delivery O2 Flow Rate FiO2 10/30/18 09:36 64 131/58 10/30/18 08:00 97.5 19 93 10/29/18 21:00 Nasal Cannula 3.0 Constitutional: NAD Neurologic: CN 2-12 intact Cardiovascular: RRR Respiratory: CTA Gastrointestinal: S/NT/ND Airway Exam Mallampati Score: Class II Dentures: upper Anesthesia Pre-op A/P Labs Coagulation Test 10/30/18 05:40 Prothrombin Time 16.5 SEC (9.30-11.50) H Prothromb Time International Ratio 1.6 (0.9-1.1) H Activated Partial Thromboplast Time 33 SEC (23-33) Chemistry Test 10/30/18 05:40 Sodium Level 140 MMOL/L (136-145) Potassium Level 3.7 MMOL/L (3.5-5.1) Chloride Level 106 MMOL/L (98-107) Carbon Dioxide Level 25 MMOL/L (21-32) Anion Gap 9 mmol/L (5-15) Blood Urea Nitrogen 33 mg/dL (7-18) H Creatinine 4.2 MG/DL (0.55-1.30) H Estimat Glomerular Filtration Rate 14.5 mL/min (>60) Glucose Level 196 MG/DL (74-106) H Calcium Level 8.1 MG/DL (8.5-10.1) L Total Bilirubin 0.6 MG/DL (0.2-1.0) Aspartate Amino Transf (AST/SGOT) 21 U/L (15-37) Alanine Aminotransferase (ALT/SGPT) 20 U/L (12-78) Alkaline Phosphatase 127 U/L (46-116) H Total Protein 5.6 G/DL (6.4-8.2) L Albumin 1.8 G/DL (3.4-5.0) L Globulin 3.8 g/dL Albumin/Globulin Ratio 0.5 (1.0-2.7) L Studies Pre-op Studies: EKG - sr Risk Assessment & Plan Plan: mac Pre-Antibiotics Drug: none Angie Benitez CRNA Oct 30, 2018 11:17
--- NOTE | 2018-10-30 11:18 | Immediate Post-Op Evaluation ---
Immediate Post-Op Evalulation Immediate Post-Op Evalulation Procedure: EGD Date of Evaluation: Oct 30, 2018 Time of Evaluation: 11:15 IV Fluids: 200 Blood Pressure Systolic: 111 Blood Pressure Diastolic: 64 Pulse Rate: 54 Respiratory Rate: 14 O2 Sat by Pulse Oximetry: 100 Temperature (Fahrenheit): 97.6 Pain Score (1-10): 0 Nausea: No Vomiting: No Complications none Patient Status: awake, reacts, patent Hydration Status: adequate Drug: none Angie Benitez CRNA Oct 30, 2018 11:18
--- NOTE | 2018-10-30 12:13 | 48 Hour Post Anesthesia Eval ---
Post Anesthesia Evaluation Procedure: EGD Date of Evaluation: Oct 30, 2018 Time of Evaluation: 11:20 Blood Pressure Systolic: 112 0: 57 Pulse Rate: 75 Respiratory Rate: 14 O2 Sat by Pulse Oximetry: 99 Airway: patent Nausea: No Vomiting: No Hydration Status: adequate Cardiopulmonary Status: stable Mental Status/LOC: patient returned to baseline Follow-up Care/Observations: na Post-Anesthesia Complications: none Follow-up care needed: N/A Angie Benitez CRNA Oct 30, 2018 12:13
--- NOTE | 2018-10-30 12:17 | General Progress Note ---
Assessment/Plan Problem List: (1) Hepatic encephalopathy ICD Codes: K72.90 - Hepatic failure, unspecified without coma SNOMED: 33944914 (2) ESRD (end stage renal disease) ICD Codes: N18.6 - End stage renal disease SNOMED: 00889919 (3) Hypertensive kidney disease ICD Codes: I12.9 - Hypertensive chronic kidney disease with stage 1 through stage 4 chronic kidney disease, or unspecified chronic kidney disease SNOMED: 87311715 (4) Diabetic nephropathy ICD Codes: E11.21 - Type 2 diabetes mellitus with diabetic nephropathy SNOMED: 870975035 (5) Fluid overload ICD Codes: E87.70 - Fluid overload, unspecified SNOMED: 04672339 (6) Pancytopenia ICD Codes: D61.818 - Other pancytopenia SNOMED: 337453402 (7) Altered level of consciousness ICD Codes: R40.4 - Transient alteration of awareness SNOMED: 2734311 Status: progressing Assessment/Plan etoh cihhrosis check ammonia level ams due to worsening ammonia endoscopy done and show gastritis h Subjective ROS Limited/Unobtainable: Yes Allergies: Coded Allergies: No Known Allergies (Unverified , 10/27/18) Objective Last 24 Hour Vital Signs Date Time Temp Pulse Resp B/P (MAP) Pulse Ox O2 Delivery O2 Flow Rate FiO2 10/30/18 12:13 75 14 99 10/30/18 11:51 97.8 56 17 127/57 99 Room Air 56 10/30/18 11:45 50 16 124/68 96 Room Air 50 10/30/18 11:30 53 15 122/62 98 Room Air 53 10/30/18 11:20 51 18 117/64 97 Room Air 51 10/30/18 11:18 54 14 100 10/30/18 11:10 97.6 54 14 109/60 100 Nasal Cannula 3 54 10/30/18 09:36 64 131/58 10/30/18 09:00 Nasal Cannula 3.0 10/30/18 08:00 97.5 64 19 131/58 (82) 93 10/30/18 06:21 125/56 10/30/18 06:00 125/56 10/30/18 04:00 98.1 78 20 128/64 (85) 98 10/30/18 00:07 123/60 10/30/18 00:00 97.9 64 20 123/60 (81) 99 10/29/18 22:35 73 138/53 10/29/18 22:00 123/60 10/29/18 21:00 Nasal Cannula 3.0 10/29/18 20:00 65 20 138/53 (81) 99 10/29/18 18:43 Nasal Cannula 7.0 10/29/18 18:37 7.0 10/29/18 17:52 130/59 10/29/18 17:01 98.2 63 18 130/59 (82) 97 10/29/18 15:30 7.0 10/29/18 15:00 65 20 130/72 (91) 99 10/29/18 14:55 64 20 131/72 (91) 100 10/29/18 14:50 64 20 132/71 (91) 100 10/29/18 14:45 62 20 127/69 (88) 100 10/29/18 14:40 61 20 131/71 (91) 100 10/29/18 14:01 63 19 2.0 10/29/18 14:00 130/72 Intake and Output 10/29/18 10/30/18 18:59 06:59 Intake Total 175 ml Balance 175 ml Intake Oral 120 ml IV Total 55 ml Laboratory Tests 10/30/18 05:40: Prothrombin Time 16.5H, Prothromb Time International Ratio 1.6H, Activated Partial Thromboplast Time 33, Sodium Level 140, Potassium Level 3.7, Chloride Level 106, Carbon Dioxide Level 25, Anion Gap 9, Blood Urea Nitrogen 33H, Creatinine 4.2H, Estimat Glomerular Filtration Rate 14.5, Glucose Level 196H, Calcium Level 8.1L, Total Bilirubin 0.6, Aspartate Amino Transf (AST/SGOT) 21, Alanine Aminotransferase (ALT/SGPT) 20, Alkaline Phosphatase 127H, Total Protein 5.6L, Albumin 1.8L, Globulin 3.8, Albumin/Globulin Ratio 0.5L Height (Feet): 6 Height (Inches): 6.00 Weight (Pounds): 216 Neck: supple Cardiovascular: normal rate Respiratory/Chest: lungs clear Abdomen: soft Allison Mcpherson MD Oct 30, 2018 12:17
--- NOTE | 2018-10-30 14:11 | NUR ---
RD ASSESSMENT & RECOMMENDATIONS SEE CARE ACTIVITY FOR COMPLETE ASSESSMENT DAILY ESTIMATED NEEDS: Needs based on ESRD on HD, 98kg 27-32 kcals/kg 3118-4016 total kcals 1.2-1.8 g protein/kg 118-176 g total protein Fluid per MD, on HD NUTRITION DIAGNOSIS: 1) Increased kcal and protein needs r/t renal dysfunction as evidenced by pt w/ ESRD on HD. 2) Decreased sodium needs r/t liver dz as evidenced by s/p EGD w/ findings of portal HTN. [facility] RECOMMENDATIONS: CCHO MEDIUM / RENAL/ DOUBLE PROTEIN PORTIONS ADDITIONAL RECOMMENDATIONS: 1) Add NEPRO qdaily 2) Obtain a standing weight as able, pt on bed WITHOUT scale w/ renal dz 3) Rec additional hypoglycemics for improved BG 4) Nephrovite daily
--- NOTE | 2018-10-30 16:15 | Procedure Note ---
DATE OF PROCEDURE: 10/30/2018 SURGEON: Karan Mendoza M.D. PROCEDURE: Upper endoscopy with biopsy. ANESTHESIA: Per Vanessa OLEA. INSTRUMENT: Olympus adult flexible scope. INDICATION: Cirrhosis. REASON FOR PROCEDURE: The procedure, risks, benefits, and possible consequences, including hemorrhage, aspiration, perforation and infection, and alternative treatments, were explained to the patient/legal guardian by Dr. Karan Mendoza and the patient/legal guardian understood and accepted these risks. PROCEDURE IN DETAIL: After informed consent was obtained and the patient was adequately sedated, Olympus upper endoscope was advanced from mouth into the second portion of duodenum and retroflexion was performed in the stomach. The patient had evidence of minimum distal esophagitis. No evidence of any esophageal nor gastric varices. The patient had severe portal hypertensive gastropathy. One biopsy from the body was obtained to evaluate for that diagnosis. The patient has evidence of duodenitis without any obvious duodenal ulceration. At this time, the upper endoscope was retrieved. Procedure was terminated. SUMMARY OF FINDINGS: 1. Minimal distal esophagitis. 2. Portal hypertensive gastropathy. 3. Duodenitis. RECOMMENDATIONS: Treat for cirrhosis. Avoid alcohol. Follow labs. Follow biopsy results. Resume diet. Discharge planning per primary team. Needs outpatient followup. I want to thank Dr. Allison Mcpherson for this kind referral. Karan Mendoza M.D. DR: KALIN JOB#: [id number] CC: Allison Mcpherson M.D.; Fax#: [phone]
--- NOTE | 2018-10-30 18:03 | Nephrology Progress Note ---
Assessment/Plan Problem List: (1) Hepatic encephalopathy (2) ESRD (end stage renal disease) (3) Hypertensive kidney disease (4) Diabetic nephropathy Assessment ESRD right permacath Hepatic Encephalopathy Anemia of CKD DM HTN Plan Right Permacath not in proper position- HD 10/29 next 10/31 lactulose Renal diet phos binders EPO BP meds per orders Subjective ROS Limited/Unobtainable: No Constitutional: Reports: malaise Objective Objective Last 24 Hour Vital Signs Date Time Temp Pulse Resp B/P (MAP) Pulse Ox O2 Delivery O2 Flow Rate FiO2 10/30/18 17:32 133/62 10/30/18 15:29 126/61 10/30/18 12:38 126/61 10/30/18 12:13 75 14 99 10/30/18 12:00 97.6 58 17 126/61 (82) 95 10/30/18 11:51 97.8 56 17 127/57 99 Room Air 56 10/30/18 11:45 50 16 124/68 96 Room Air 50 10/30/18 11:30 53 15 122/62 98 Room Air 53 10/30/18 11:20 51 18 117/64 97 Room Air 51 10/30/18 11:18 54 14 100 10/30/18 11:10 97.6 54 14 109/60 100 Nasal Cannula 3 54 10/30/18 09:36 64 131/58 10/30/18 09:00 Nasal Cannula 3.0 10/30/18 08:00 97.5 64 19 131/58 (82) 93 10/30/18 06:21 125/56 10/30/18 06:00 125/56 10/30/18 04:00 98.1 78 20 128/64 (85) 98 10/30/18 00:07 123/60 10/30/18 00:00 97.9 64 20 123/60 (81) 99 10/29/18 22:35 73 138/53 10/29/18 22:00 123/60 10/29/18 21:00 Nasal Cannula 3.0 10/29/18 20:00 65 20 138/53 (81) 99 10/29/18 18:43 Nasal Cannula 7.0 10/29/18 18:37 7.0 Intake and Output 10/29/18 10/30/18 19:00 07:00 Intake Total 175 ml Balance 175 ml Intake Oral 120 ml IV Total 55 ml Laboratory Tests 10/30/18 05:40: Prothrombin Time 16.5H, Prothromb Time International Ratio 1.6H, Activated Partial Thromboplast Time 33, Sodium Level 140, Potassium Level 3.7, Chloride Level 106, Carbon Dioxide Level 25, Anion Gap 9, Blood Urea Nitrogen 33H, Creatinine 4.2H, Estimat Glomerular Filtration Rate 14.5, Glucose Level 196H, Calcium Level 8.1L, Total Bilirubin 0.6, Aspartate Amino Transf (AST/SGOT) 21, Alanine Aminotransferase (ALT/SGPT) 20, Alkaline Phosphatase 127H, Total Protein 5.6L, Albumin 1.8L, Globulin 3.8, Albumin/Globulin Ratio 0.5L Height (Feet): 6 Height (Inches): 6.00 Weight (Pounds): 216 General Appearance: no apparent distress Objective no change Bob Hogan MD Oct 30, 2018 18:03
--- NOTE | 2018-10-30 18:15 | NUR ---
NURSE NOTES: Karla rodriguez [facility] was notified about HD order from MD Burden. She stated she will be there tomorrow at approximately 1300 hours.
--- NOTE | 2018-10-30 19:45 | NUR ---
HAND-OFF: Report given to RN Cleveronica.
--- NOTE | 2018-10-30 19:47 | NUR ---
NURSE NOTES: Received report from MELISSA Valles.
[2018-10-30] MEDS: Tamsulosin 0.4mg cap ORAL SCH (22:00)
[2018-10-30] MEDS: Epoetin Alfa(ESRD on dialysis)10,000 unit/ml vial SUBQ SCH (22:02)
--- NOTE | 2018-10-30 23:29 | NUR ---
NURSE NOTES: Patient is aaox4. VSS no pain noted. IV site flushing well. Porticath dressing dry and intact. Due meds given needs attended to. bed low, call light within reach.
[2018-10-31] VITALS (8 sets, daily range): BP systolic 125–164; BP diastolic 58–83
[2018-10-31] MEDS: HydrALAZINE 25mg tab ORAL SCH ×4 (00:43→17:14)
[2018-10-31] MEDS: NovoLOG Insulin Flexpen SUBQ SCH ×4 (07:10→20:19)
[2018-10-31 07:12] LABS: HEMATOCRIT 23.2 % (42.0-52.0); HEMOGLOBIN 7.6 G/DL (14.2-18.0); MEAN CORPUSCULAR VOLUME 94 FL (80-99); PLATELET COUNT 66 K/UL (150-450); RED BLOOD COUNT 2.47 M/UL (4.70-6.10); RED CELL DISTRIBUTION WIDTH 14.1 % (11.6-14.8)
[2018-10-31] MEDS: Calcium Acetate 667mg Tab ORAL SCH ×3 (07:12→17:14)
[2018-10-31] MEDS: cloNIDine 0.2mg Tab ORAL SCH ×3 (07:12→22:53)
--- NOTE | 2018-10-31 07:19 | NUR ---
NURSE NOTES: Received critical value for Thania from Laboratory. WBC down 2.0. will call Dr. Mcpherson
[2018-10-31 07:22] LABS: ALANINE AMINOTRANSFERASE 12 U/L (12-78); ALBUMIN 1.6 G/DL (3.4-5.0); ALBUMIN/GLOBULIN RATIO 0.4 (1.0-2.7); ALKALINE PHOSPHATASE 112 U/L (46-116); ANION GAP 9 mmol/L (5-15); ASPARTATE AMINO TRANSFERASE 17 U/L (15-37); BILIRUBIN,TOTAL 0.4 MG/DL (0.2-1.0); BLOOD UREA NITROGEN 39 mg/dL (7-18); CALCIUM 7.8 MG/DL (8.5-10.1); CARBON DIOXIDE 23 MMOL/L (21-32); CHLORIDE 107 MMOL/L (98-107); POTASSIUM 3.9 MMOL/L (3.5-5.1); SODIUM 139 MMOL/L (136-145)
[2018-10-31 07:25] LABS: PHOSPHORUS 4.5 MG/DL (2.5-4.9)
--- NOTE | 2018-10-31 07:30 | NUR ---
NURSE NOTES: Received report from Dilia TORRES. During rounds patient is awake alert and oriented x4, no s/s acute distress noted. On 2L NC. IV intact and asymptomatic. Patient has critical WBC value of 2.0 and Hbg 7.6. Dilia TORRES reports she will call MD to reports and get further orders. Fall precautions maintained. Side rails upx3, bed low and locked, call light in reach. Will continue to monitor.
--- NOTE | 2018-10-31 08:37 | NUR ---
NURSE NOTES: Dr. Cox notified regarding H/H 03/20, 23.2. and WBC of 2.0. 1 unit PRBC ordered for transfusion now.
--- NOTE | 2018-10-31 08:44 | NUR ---
HAND-OFF: Report given to MELISSA Martinez. Patient stable.
[2018-10-31] MEDS: Lactulose 20gm/30ml UDC ORAL SCH ×3 (09:19→18:47)
--- NOTE | 2018-10-31 09:49 | NUR ---
NURSE NOTES: Called blood bank to inquire if blood is ready, per Muriel in blood bank, blood is not ready yet. Will follow up and continue to monitor.
--- NOTE | 2018-10-31 10:56 | General Progress Note ---
Assessment/Plan Problem List: (1) Esophagitis ICD Codes: K20.9 - Esophagitis, unspecified SNOMED: 37882305 (2) Altered level of consciousness ICD Codes: R40.4 - Transient alteration of awareness SNOMED: 2186548 (3) ESRD (end stage renal disease) ICD Codes: N18.6 - End stage renal disease SNOMED: 84005303 (4) Hepatic encephalopathy ICD Codes: K72.90 - Hepatic failure, unspecified without coma SNOMED: 09408322 (5) Hypertensive kidney disease ICD Codes: I12.9 - Hypertensive chronic kidney disease with stage 1 through stage 4 chronic kidney disease, or unspecified chronic kidney disease SNOMED: 31384183 (6) Pancytopenia ICD Codes: D61.818 - Other pancytopenia SNOMED: 949737439 Assessment/Plan SUMMARY OF FINDINGS: 1. Minimal distal esophagitis. 2. Portal hypertensive gastropathy. 3. Duodenitis. RECOMMENDATIONS: Treat for cirrhosis. Avoid alcohol. Follow labs. Follow biopsy results. Discharge planning per primary team. Needs outpatient followup. Subjective ROS Limited/Unobtainable: Yes Allergies: Coded Allergies: No Known Allergies (Unverified , 10/27/18) Subjective no event Objective Last 24 Hour Vital Signs Date Time Temp Pulse Resp B/P (MAP) Pulse Ox O2 Delivery O2 Flow Rate FiO2 10/31/18 09:00 69 125/83 10/31/18 09:00 69 125/83 10/31/18 08:00 97.9 69 19 125/83 (97) 99 10/31/18 07:12 149/68 10/31/18 07:12 149/68 10/31/18 04:00 98.3 63 18 139/59 (85) 97 10/31/18 00:43 127/58 10/31/18 00:00 97.9 66 18 127/58 (81) 97 10/30/18 22:01 64 123/64 10/30/18 22:00 123/64 10/30/18 21:00 Nasal Cannula 3.0 10/30/18 20:00 98.5 64 20 123/64 (83) 97 10/30/18 17:32 133/62 10/30/18 16:00 97.2 64 19 133/62 (85) 97 10/30/18 15:29 126/61 10/30/18 12:38 126/61 10/30/18 12:13 75 14 99 10/30/18 12:00 97.6 58 17 126/61 (82) 95 10/30/18 11:51 97.8 56 17 127/57 99 Room Air 56 10/30/18 11:45 50 16 124/68 96 Room Air 50 10/30/18 11:30 53 15 122/62 98 Room Air 53 10/30/18 11:20 51 18 117/64 97 Room Air 51 10/30/18 11:18 54 14 100 10/30/18 11:10 97.6 54 14 109/60 100 Nasal Cannula 3 54 Intake and Output 10/30/18 10/31/18 18:59 06:59 Intake Total 25 ml Balance 25 ml Intake Oral 0 ml IV Total 25 ml Laboratory Tests 10/31/18 05:30: White Blood Count 2.0*L, Red Blood Count 2.47L, Hemoglobin 7.6L, Hematocrit 23.2L, Mean Corpuscular Volume 94, Mean Corpuscular Hemoglobin 30.8, Mean Corpuscular Hemoglobin Concent 32.7, Red Cell Distribution Width 14.1, Platelet Count 66L, Mean Platelet Volume 7.7, Neutrophils (%) (Auto) , Lymphocytes (%) ( Auto) , Monocytes (%) (Auto) , Eosinophils (%) (Auto) , Basophils (%) (Auto) , Differential Total Cells Counted 100, Neutrophils % (Manual) 54, Lymphocytes % ( Manual) 31, Monocytes % (Manual) 11H, Eosinophils % (Manual) 4H, Basophils % ( Manual) 0, Band Neutrophils 0, Platelet Estimate DecreasedL, Platelet Morphology Normal, Hypochromasia 1+, Anisocytosis 1+, Sodium Level 139, Potassium Level 3.9, Chloride Level 107, Carbon Dioxide Level 23, Anion Gap 9, Blood Urea Nitrogen 39H, Creatinine 5.0H, Estimat Glomerular Filtration Rate 11.9, Glucose Level 182H, Calcium Level 7.8L, Phosphorus Level 4.5, Total Bilirubin 0.4, Aspartate Amino Transf (AST/SGOT) 17, Alanine Aminotransferase ( ALT/SGPT) 12, Alkaline Phosphatase 112, Ammonia 176H, Total Protein 5.2L, Albumin 1.6L, Globulin 3.6, Albumin/Globulin Ratio 0.4L Height (Feet): 6 Height (Inches): 6.00 Weight (Pounds): 216 General Appearance: alert EENT: PERRL/EOMI Neck: supple Cardiovascular: normal rate Respiratory/Chest: decreased breath sounds Abdomen: normal bowel sounds, non tender, soft Extremities: non-tender Karan Mendoza MD Oct 31, 2018 10:56
--- NOTE | 2018-10-31 12:47 | NUR ---
NURSE NOTES: Called Muriel in blood bank. Muriel reports patient's blood was never drawn for type & screen, reports that copper etcher will come up and draw patient now. Will continue to monitor.
--- NOTE | 2018-10-31 13:28 | NUR ---
CASE MANAGEMENT: REVIEW 10/31/2018 SI: AMS. FLUID OVERLOAD. T: 97.4 HR 60 RR 19 B/P 144/67 SATS 97% ON 3L/NC WBC 2 HGB 7.6 HCT 23.2 BUN 39 CR 5 CA 7.8 IS: HYDRALAZINE PO Q6H LOPRESSOR PO Q12H RIFAXIMIN PO Q12H FLOMAX PO QHS PROTONIX PO QD INSULIN ASPART SUBQ AC/HS CATAPRES PO Q8H LACTULOSE PO TID MED/SURG STATUS DCP: PATIENT TO BE DISCHARGED TO HOME ONCE MEDICALLY CLEARED.
--- NOTE | 2018-10-31 13:35 | Nephrology Progress Note ---
Assessment/Plan Problem List: (1) Hepatic encephalopathy (2) ESRD (end stage renal disease) (3) Hypertensive kidney disease (4) Diabetic nephropathy Assessment ESRD right permacath Hepatic Encephalopathy Anemia of CKD DM HTN Plan Right Permacath not in proper position- HD 10/29 next 10/31 lactulose Renal diet phos binders EPO BP meds per orders Subjective ROS Limited/Unobtainable: No Constitutional: Reports: malaise Objective Objective Last 24 Hour Vital Signs Date Time Temp Pulse Resp B/P (MAP) Pulse Ox O2 Delivery O2 Flow Rate FiO2 10/31/18 12:00 97.4 60 19 144/67 (92) 97 10/31/18 12:00 144/67 10/31/18 09:00 69 125/83 10/31/18 09:00 69 125/83 10/31/18 09:00 Nasal Cannula 3.0 10/31/18 08:00 97.9 69 19 125/83 (97) 99 10/31/18 07:12 149/68 10/31/18 07:12 149/68 10/31/18 04:00 98.3 63 18 139/59 (85) 97 10/31/18 00:43 127/58 10/31/18 00:00 97.9 66 18 127/58 (81) 97 10/30/18 22:01 64 123/64 10/30/18 22:00 123/64 10/30/18 21:00 Nasal Cannula 3.0 10/30/18 20:00 98.5 64 20 123/64 (83) 97 10/30/18 17:32 133/62 10/30/18 16:00 97.2 64 19 133/62 (85) 97 10/30/18 15:29 126/61 Intake and Output 10/30/18 10/31/18 18:59 06:59 Intake Total 25 ml Balance 25 ml Intake Oral 0 ml IV Total 25 ml Laboratory Tests 10/31/18 05:30: White Blood Count 2.0*L, Red Blood Count 2.47L, Hemoglobin 7.6L, Hematocrit 23.2L, Mean Corpuscular Volume 94, Mean Corpuscular Hemoglobin 30.8, Mean Corpuscular Hemoglobin Concent 32.7, Red Cell Distribution Width 14.1, Platelet Count 66L, Mean Platelet Volume 7.7, Neutrophils (%) (Auto) , Lymphocytes (%) ( Auto) , Monocytes (%) (Auto) , Eosinophils (%) (Auto) , Basophils (%) (Auto) , Differential Total Cells Counted 100, Neutrophils % (Manual) 54, Lymphocytes % ( Manual) 31, Monocytes % (Manual) 11H, Eosinophils % (Manual) 4H, Basophils % ( Manual) 0, Band Neutrophils 0, Platelet Estimate DecreasedL, Platelet Morphology Normal, Hypochromasia 1+, Anisocytosis 1+, Sodium Level 139, Potassium Level 3.9, Chloride Level 107, Carbon Dioxide Level 23, Anion Gap 9, Blood Urea Nitrogen 39H, Creatinine 5.0H, Estimat Glomerular Filtration Rate 11.9, Glucose Level 182H, Calcium Level 7.8L, Phosphorus Level 4.5, Total Bilirubin 0.4, Aspartate Amino Transf (AST/SGOT) 17, Alanine Aminotransferase ( ALT/SGPT) 12, Alkaline Phosphatase 112, Ammonia 176H, Total Protein 5.2L, Albumin 1.6L, Globulin 3.6, Albumin/Globulin Ratio 0.4L Height (Feet): 6 Height (Inches): 6.00 Weight (Pounds): 216 General Appearance: no apparent distress Objective no change Bob Hogan MD Oct 31, 2018 13:35
--- NOTE | 2018-10-31 15:10 | NUR ---
NURSE NOTES: Blood transfusion started. VS assessed and stable, temp 97.7, BP 139/72, HR 57, RR 20, O2Sat 99%. Running blood at 120mL/hr. Will continue to monitor patient at the bedside.
--- NOTE | 2018-10-31 15:22 | NUR ---
NURSE NOTES: Patient remains stable, blood running at 120mL/hr. No signs or symptoms of transfusion reaction noted. Will continue to monitor at bedside.
--- NOTE | 2018-10-31 15:25 | NUR ---
NURSE NOTES: Patient remains stable, no s/s of transfusion reaction. VS: temp 98, BP: 157/79, HR: 57, RR: 20. Increased rate to 200mL/hr. Will continue to monitor.
--- NOTE | 2018-10-31 18:00 | NUR ---
NURSE NOTES: Blood transfusion complete. Patient did not have any signs or symptoms of a transfusion reaction. Patient in stable condition.
--- NOTE | 2018-10-31 18:47 | General Progress Note ---
Assessment/Plan Problem List: (1) Hepatic encephalopathy ICD Codes: K72.90 - Hepatic failure, unspecified without coma SNOMED: 03609993 (2) ESRD (end stage renal disease) ICD Codes: N18.6 - End stage renal disease SNOMED: 80006122 (3) Hypertensive kidney disease ICD Codes: I12.9 - Hypertensive chronic kidney disease with stage 1 through stage 4 chronic kidney disease, or unspecified chronic kidney disease SNOMED: 86512632 (4) Diabetic nephropathy ICD Codes: E11.21 - Type 2 diabetes mellitus with diabetic nephropathy SNOMED: 499393246 (5) Fluid overload ICD Codes: E87.70 - Fluid overload, unspecified SNOMED: 34131701 (6) Pancytopenia ICD Codes: D61.818 - Other pancytopenia SNOMED: 602670824 (7) Altered level of consciousness ICD Codes: R40.4 - Transient alteration of awareness SNOMED: 9480570 Status: progressing Assessment/Plan etoh cihhrosis severe pancytopenia due to etoh getting hd today afebrile check ammonia level ams due to worsening ammonia endoscopy done and show gastritis Subjective ROS Limited/Unobtainable: Yes Allergies: Coded Allergies: No Known Allergies (Unverified , 10/27/18) Objective Last 24 Hour Vital Signs Date Time Temp Pulse Resp B/P (MAP) Pulse Ox O2 Delivery O2 Flow Rate FiO2 10/31/18 18:23 Room Air 3.0 10/31/18 17:14 168/72 10/31/18 14:30 Nasal Cannula 3.0 10/31/18 14:00 144/67 10/31/18 12:00 97.4 60 19 144/67 (92) 97 10/31/18 12:00 144/67 10/31/18 09:00 69 125/83 10/31/18 09:00 69 125/83 10/31/18 09:00 Nasal Cannula 3.0 10/31/18 08:00 97.9 69 19 125/83 (97) 99 10/31/18 07:12 149/68 10/31/18 07:12 149/68 10/31/18 04:00 98.3 63 18 139/59 (85) 97 10/31/18 00:43 127/58 10/31/18 00:00 97.9 66 18 127/58 (81) 97 10/30/18 22:01 64 123/64 10/30/18 22:00 123/64 10/30/18 21:00 Nasal Cannula 3.0 10/30/18 20:00 98.5 64 20 123/64 (83) 97 Intake and Output 10/30/18 10/31/18 19:00 07:00 Intake Total 25 ml Balance 25 ml Intake Oral 0 ml IV Total 25 ml Laboratory Tests 10/31/18 05:30: White Blood Count 2.0*L, Red Blood Count 2.47L, Hemoglobin 7.6L, Hematocrit 23.2L, Mean Corpuscular Volume 94, Mean Corpuscular Hemoglobin 30.8, Mean Corpuscular Hemoglobin Concent 32.7, Red Cell Distribution Width 14.1, Platelet Count 66L, Mean Platelet Volume 7.7, Neutrophils (%) (Auto) , Lymphocytes (%) ( Auto) , Monocytes (%) (Auto) , Eosinophils (%) (Auto) , Basophils (%) (Auto) , Differential Total Cells Counted 100, Neutrophils % (Manual) 54, Lymphocytes % ( Manual) 31, Monocytes % (Manual) 11H, Eosinophils % (Manual) 4H, Basophils % ( Manual) 0, Band Neutrophils 0, Platelet Estimate DecreasedL, Platelet Morphology Normal, Hypochromasia 1+, Anisocytosis 1+, Sodium Level 139, Potassium Level 3.9, Chloride Level 107, Carbon Dioxide Level 23, Anion Gap 9, Blood Urea Nitrogen 39H, Creatinine 5.0H, Estimat Glomerular Filtration Rate 11.9, Glucose Level 182H, Calcium Level 7.8L, Phosphorus Level 4.5, Total Bilirubin 0.4, Aspartate Amino Transf (AST/SGOT) 17, Alanine Aminotransferase ( ALT/SGPT) 12, Alkaline Phosphatase 112, Ammonia 176H, Total Protein 5.2L, Albumin 1.6L, Globulin 3.6, Albumin/Globulin Ratio 0.4L Height (Feet): 6 Height (Inches): 6.00 Weight (Pounds): 216 Cardiovascular: normal rate Respiratory/Chest: lungs clear Allison Mcpherson MD Oct 31, 2018 18:47
--- NOTE | 2018-10-31 19:52 | NUR ---
HAND-OFF: Report given to Dilia TORRES. Patient in stable condition.
[2018-10-31] MEDS: Tamsulosin 0.4mg cap ORAL SCH (20:20)
--- NOTE | 2018-10-31 22:30 | NUR ---
NURSE NOTES: Patient is aox4, no signs of distress. Ambulated to restroom. Reminded patient to call for assistance. Patient verbalized understanding. Stated he had one large bowel movement. IV site patent, permacath dressing c/d/i. Due meds given, needs attended to. bed low, call light within reach.
[2018-11-01] VITALS (7 sets, daily range): BP systolic 114–143; BP diastolic 57–78
[2018-11-01] MEDS: HydrALAZINE 25mg tab ORAL SCH ×4 (00:42→17:39)
[2018-11-01] MEDS: cloNIDine 0.2mg Tab ORAL SCH ×3 (05:46→21:19)
[2018-11-01] MEDS: Calcium Acetate 667mg Tab ORAL SCH ×3 (05:46→17:03)
[2018-11-01] MEDS: NovoLOG Insulin Flexpen SUBQ SCH ×4 (05:48→21:21)
[2018-11-01 06:30] LABS: HEMATOCRIT 24.6 % (42.0-52.0); HEMOGLOBIN 8.2 G/DL (14.2-18.0); MEAN CORPUSCULAR VOLUME 92 FL (80-99); PLATELET COUNT 63 K/UL (150-450); RED BLOOD COUNT 2.66 M/UL (4.70-6.10); RED CELL DISTRIBUTION WIDTH 13.6 % (11.6-14.8)
[2018-11-01 06:35] LABS: WHITE BLOOD COUNT 1.9 K/UL (4.8-10.8)
[2018-11-01 06:51] LABS: ALANINE AMINOTRANSFERASE 15 U/L (12-78); ALBUMIN 1.4 G/DL (3.4-5.0); ALBUMIN/GLOBULIN RATIO 0.4 (1.0-2.7); ALKALINE PHOSPHATASE 109 U/L (46-116); ANION GAP 7 mmol/L (5-15); ASPARTATE AMINO TRANSFERASE 16 U/L (15-37); BILIRUBIN,TOTAL 0.6 MG/DL (0.2-1.0); BLOOD UREA NITROGEN 25 mg/dL (7-18); CALCIUM 7.4 MG/DL (8.5-10.1); CARBON DIOXIDE 24 MMOL/L (21-32); CHLORIDE 105 MMOL/L (98-107); CREATININE 3.7 MG/DL (0.55-1.30); POTASSIUM 3.6 MMOL/L (3.5-5.1); SODIUM 136 MMOL/L (136-145)
--- NOTE | 2018-11-01 07:02 | NUR ---
Dr. Hammond notified . Received critical lab value from Adriana in Lab for WBC count of 1.9. Neupogen 300 mcg x1 subQ ordered.
--- NOTE | 2018-11-01 07:12 | NUR ---
NURSE NOTES: Received report from Dilia TORRES. Patient is awake alert and oriented x4, during rounds, no s/s acute distress. Dr. Winston was notified by cage shift manager nurse regarding critical WBC 1.9, order was entered, waiting on pharmacy to verify order. Fall precautions maintained, patient educated to call for assistance before getting OOB and patient in agreement. Side rails upx3, bed low and locked, call light in reach. Will continue to monitor.
--- NOTE | 2018-11-01 07:15 | NUR ---
HAND-OFF: Report given to MELISSA Martinez. Addendum: 11/01/18 at 0716 by CECILE JUAREZ RN PATIENT STABLE
--- NOTE | 2018-11-01 09:33 | NUR ---
NURSE NOTES: Called Dr. Mcpherson and left voicemail with MD regarding patient's bradycardia and increased swelling in the right leg. Awaiting callback from MD with further orders. Will continue to monitor.
[2018-11-01] MEDS: Lactulose 20gm/30ml UDC ORAL SCH ×3 (09:39→17:39)
--- NOTE | 2018-11-01 09:45 | NUR ---
NURSE NOTES: Received callback from Dr. Mcpherson. aware of patient's bradycardia and ordered to d/c Metoprolol. Ordered to call Dr. Linton if HR is <50. also aware of patient's increased leg swelling and ordered to call Dr. Winston for further orders. Will follow up as ordered and continue to monitor.
--- NOTE | 2018-11-01 10:07 | NUR ---
NURSE NOTES: Contacted Dr. Winston regarding patient's RLE swelling. ordered for venous duplex of RLE to rule out clot. Order entered. Will continue to monitor.
[2018-11-01] MEDS ORDERED: TBO-Filgrastim 300 mcg/0.5ml SQ ONE (10:30)
--- NOTE | 2018-11-01 11:17 | General Progress Note ---
Assessment/Plan Problem List: (1) Esophagitis ICD Codes: K20.9 - Esophagitis, unspecified SNOMED: 12402066 (2) Altered level of consciousness ICD Codes: R40.4 - Transient alteration of awareness SNOMED: 2237731 (3) ESRD (end stage renal disease) ICD Codes: N18.6 - End stage renal disease SNOMED: 83887235 (4) Hepatic encephalopathy ICD Codes: K72.90 - Hepatic failure, unspecified without coma SNOMED: 78444609 (5) Hypertensive kidney disease ICD Codes: I12.9 - Hypertensive chronic kidney disease with stage 1 through stage 4 chronic kidney disease, or unspecified chronic kidney disease SNOMED: 51688813 (6) Pancytopenia ICD Codes: D61.818 - Other pancytopenia SNOMED: 248293608 Assessment/Plan SUMMARY OF FINDINGS: 1. Minimal distal esophagitis. 2. Portal hypertensive gastropathy. 3. Duodenitis. RECOMMENDATIONS: Treat for cirrhosis. Avoid alcohol. Follow labs. Follow biopsy results. Discharge planning per primary team. Needs outpatient followup. Subjective ROS Limited/Unobtainable: Yes Allergies: Coded Allergies: No Known Allergies (Unverified , 10/27/18) Subjective no event Objective Last 24 Hour Vital Signs Date Time Temp Pulse Resp B/P (MAP) Pulse Ox O2 Delivery O2 Flow Rate FiO2 11/01/18 09:00 51 114/57 11/01/18 09:00 51 114/57 11/01/18 09:00 Room Air 11/01/18 08:00 97.5 51 19 114/57 (76) 100 11/01/18 05:46 141/60 11/01/18 05:46 141/60 11/01/18 04:00 97.9 69 18 141/60 (87) 97 11/01/18 00:42 139/64 11/01/18 00:00 97.5 57 18 139/64 (89) 98 10/31/18 22:53 155/76 10/31/18 21:00 Room Air 10/31/18 20:21 67 157/66 10/31/18 20:00 98.0 64 18 157/66 (96) 98 10/31/18 18:23 Room Air 3.0 10/31/18 18:00 97.3 60 20 164/69 (100) 98 10/31/18 17:14 168/72 10/31/18 15:25 98.0 57 20 157/79 (105) 98 10/31/18 15:10 97.7 57 20 139/72 (94) 99 10/31/18 14:30 Nasal Cannula 3.0 10/31/18 14:00 144/67 10/31/18 12:00 97.4 60 19 144/67 (92) 97 10/31/18 12:00 144/67 Intake and Output 10/31/18 11/01/18 19:00 07:00 Intake Total 730 ml Output Total 340 ml Balance 390 ml Intake Oral 480 ml Blood Product 250 ml Output Urine Total 340 ml Laboratory Tests 11/01/18 05:20: White Blood Count 1.9*L, Red Blood Count 2.66L, Hemoglobin 8.2L, Hematocrit 24.6L, Mean Corpuscular Volume 92, Mean Corpuscular Hemoglobin 30.8, Mean Corpuscular Hemoglobin Concent 33.3, Red Cell Distribution Width 13.6, Platelet Count 63L, Mean Platelet Volume 7.0, Neutrophils (%) (Auto) , Lymphocytes (%) ( Auto) , Monocytes (%) (Auto) , Eosinophils (%) (Auto) , Basophils (%) (Auto) , Differential Total Cells Counted 100, Neutrophils % (Manual) 52, Lymphocytes % ( Manual) 33, Monocytes % (Manual) 8, Eosinophils % (Manual) 6H, Basophils % ( Manual) 1, Band Neutrophils 0, Platelet Estimate DecreasedL, Platelet Morphology Normal, Hypochromasia 1+, Sodium Level 136, Potassium Level 3.6, Chloride Level 105, Carbon Dioxide Level 24, Anion Gap 7, Blood Urea Nitrogen 25H, Creatinine 3.7H, Estimat Glomerular Filtration Rate 16.8, Glucose Level 225H, Calcium Level 7.4L, Total Bilirubin 0.6, Aspartate Amino Transf (AST/SGOT ) 16, Alanine Aminotransferase (ALT/SGPT) 15, Alkaline Phosphatase 109, Total Protein 4.7L, Albumin 1.4L, Globulin 3.3, Albumin/Globulin Ratio 0.4L Height (Feet): 6 Height (Inches): 6.00 Weight (Pounds): 216 General Appearance: alert EENT: normal ENT inspection Neck: supple Cardiovascular: normal rate Respiratory/Chest: decreased breath sounds Abdomen: normal bowel sounds, non tender, soft Extremities: non-tender Karan Mendoza MD Nov 01, 2018 11:17
[2018-11-01] MEDS ORDERED: TBO-Filgrastim 480 mcg/0.8ml SQ ONE (12:30)
--- NOTE | 2018-11-01 12:55 | Nephrology Progress Note ---
Assessment/Plan Problem List: (1) Hepatic encephalopathy (2) ESRD (end stage renal disease) (3) Hypertensive kidney disease (4) Diabetic nephropathy Assessment ESRD right permacath Hepatic Encephalopathy Anemia of CKD DM HTN Plan Right Permacath not in proper position- HD 10/29 next 10/31 lactulose Renal diet phos binders EPO BP meds per orders Subjective ROS Limited/Unobtainable: No Objective Objective Last 24 Hour Vital Signs Date Time Temp Pulse Resp B/P (MAP) Pulse Ox O2 Delivery O2 Flow Rate FiO2 11/01/18 12:19 140/78 11/01/18 12:00 97.7 52 18 140/78 (98) 100 11/01/18 09:00 51 114/57 11/01/18 09:00 51 114/57 11/01/18 09:00 Room Air 11/01/18 08:00 97.5 51 19 114/57 (76) 100 11/01/18 05:46 141/60 11/01/18 05:46 141/60 11/01/18 04:00 97.9 69 18 141/60 (87) 97 11/01/18 00:42 139/64 11/01/18 00:00 97.5 57 18 139/64 (89) 98 10/31/18 22:53 155/76 10/31/18 21:00 Room Air 10/31/18 20:21 67 157/66 10/31/18 20:00 98.0 64 18 157/66 (96) 98 10/31/18 18:23 Room Air 3.0 10/31/18 18:00 97.3 60 20 164/69 (100) 98 10/31/18 17:14 168/72 10/31/18 15:25 98.0 57 20 157/79 (105) 98 10/31/18 15:10 97.7 57 20 139/72 (94) 99 10/31/18 14:30 Nasal Cannula 3.0 10/31/18 14:00 144/67 Intake and Output 10/31/18 11/01/18 19:00 07:00 Intake Total 730 ml Output Total 340 ml Balance 390 ml Intake Oral 480 ml Blood Product 250 ml Output Urine Total 340 ml Laboratory Tests 11/01/18 05:20: White Blood Count 1.9*L, Red Blood Count 2.66L, Hemoglobin 8.2L, Hematocrit 24.6L, Mean Corpuscular Volume 92, Mean Corpuscular Hemoglobin 30.8, Mean Corpuscular Hemoglobin Concent 33.3, Red Cell Distribution Width 13.6, Platelet Count 63L, Mean Platelet Volume 7.0, Neutrophils (%) (Auto) , Lymphocytes (%) ( Auto) , Monocytes (%) (Auto) , Eosinophils (%) (Auto) , Basophils (%) (Auto) , Differential Total Cells Counted 100, Neutrophils % (Manual) 52, Lymphocytes % ( Manual) 33, Monocytes % (Manual) 8, Eosinophils % (Manual) 6H, Basophils % ( Manual) 1, Band Neutrophils 0, Platelet Estimate DecreasedL, Platelet Morphology Normal, Hypochromasia 1+, Sodium Level 136, Potassium Level 3.6, Chloride Level 105, Carbon Dioxide Level 24, Anion Gap 7, Blood Urea Nitrogen 25H, Creatinine 3.7H, Estimat Glomerular Filtration Rate 16.8, Glucose Level 225H, Calcium Level 7.4L, Total Bilirubin 0.6, Aspartate Amino Transf (AST/SGOT ) 16, Alanine Aminotransferase (ALT/SGPT) 15, Alkaline Phosphatase 109, Total Protein 4.7L, Albumin 1.4L, Globulin 3.3, Albumin/Globulin Ratio 0.4L Height (Feet): 6 Height (Inches): 6.00 Weight (Pounds): 216 General Appearance: no apparent distress Cardiovascular: normal rate, bradycardia Respiratory/Chest: decreased breath sounds Abdomen: distended Objective no change Bob Hogan MD Nov 01, 2018 12:55
--- NOTE | 2018-11-01 13:34 | General Progress Note ---
Assessment/Plan Problem List: (1) Hepatic encephalopathy ICD Codes: K72.90 - Hepatic failure, unspecified without coma SNOMED: 77402335 (2) ESRD (end stage renal disease) ICD Codes: N18.6 - End stage renal disease SNOMED: 56314049 (3) Hypertensive kidney disease ICD Codes: I12.9 - Hypertensive chronic kidney disease with stage 1 through stage 4 chronic kidney disease, or unspecified chronic kidney disease SNOMED: 83888527 (4) Diabetic nephropathy ICD Codes: E11.21 - Type 2 diabetes mellitus with diabetic nephropathy SNOMED: 070133371 (5) Fluid overload ICD Codes: E87.70 - Fluid overload, unspecified SNOMED: 70958997 (6) Pancytopenia ICD Codes: D61.818 - Other pancytopenia SNOMED: 279400505 (7) Altered level of consciousness ICD Codes: R40.4 - Transient alteration of awareness SNOMED: 1857860 Status: progressing Assessment/Plan etoh cihhrosis severe pancytopenia due to etoh getting hd today esrd on hd lyte abnormaltity reviewed chart and labs check ammonia level ams due to worsening ammonia endoscopy done and show gastritis Subjective ROS Limited/Unobtainable: Yes Allergies: Coded Allergies: No Known Allergies (Unverified , 10/27/18) Objective Last 24 Hour Vital Signs Date Time Temp Pulse Resp B/P (MAP) Pulse Ox O2 Delivery O2 Flow Rate FiO2 11/01/18 12:19 140/78 11/01/18 12:00 97.7 52 18 140/78 (98) 100 11/01/18 09:00 51 114/57 11/01/18 09:00 51 114/57 11/01/18 09:00 Room Air 11/01/18 08:00 97.5 51 19 114/57 (76) 100 11/01/18 05:46 141/60 11/01/18 05:46 141/60 11/01/18 04:00 97.9 69 18 141/60 (87) 97 11/01/18 00:42 139/64 11/01/18 00:00 97.5 57 18 139/64 (89) 98 10/31/18 22:53 155/76 10/31/18 21:00 Room Air 10/31/18 20:21 67 157/66 10/31/18 20:00 98.0 64 18 157/66 (96) 98 10/31/18 18:23 Room Air 3.0 10/31/18 18:00 97.3 60 20 164/69 (100) 98 10/31/18 17:14 168/72 10/31/18 15:25 98.0 57 20 157/79 (105) 98 10/31/18 15:10 97.7 57 20 139/72 (94) 99 10/31/18 14:30 Nasal Cannula 3.0 10/31/18 14:00 144/67 Intake and Output 10/31/18 11/01/18 18:59 06:59 Intake Total 730 ml Output Total 340 ml Balance 390 ml Intake Oral 480 ml Blood Product 250 ml Output Urine Total 340 ml Laboratory Tests 11/01/18 05:20: White Blood Count 1.9*L, Red Blood Count 2.66L, Hemoglobin 8.2L, Hematocrit 24.6L, Mean Corpuscular Volume 92, Mean Corpuscular Hemoglobin 30.8, Mean Corpuscular Hemoglobin Concent 33.3, Red Cell Distribution Width 13.6, Platelet Count 63L, Mean Platelet Volume 7.0, Neutrophils (%) (Auto) , Lymphocytes (%) ( Auto) , Monocytes (%) (Auto) , Eosinophils (%) (Auto) , Basophils (%) (Auto) , Differential Total Cells Counted 100, Neutrophils % (Manual) 52, Lymphocytes % ( Manual) 33, Monocytes % (Manual) 8, Eosinophils % (Manual) 6H, Basophils % ( Manual) 1, Band Neutrophils 0, Platelet Estimate DecreasedL, Platelet Morphology Normal, Hypochromasia 1+, Sodium Level 136, Potassium Level 3.6, Chloride Level 105, Carbon Dioxide Level 24, Anion Gap 7, Blood Urea Nitrogen 25H, Creatinine 3.7H, Estimat Glomerular Filtration Rate 16.8, Glucose Level 225H, Calcium Level 7.4L, Total Bilirubin 0.6, Aspartate Amino Transf (AST/SGOT ) 16, Alanine Aminotransferase (ALT/SGPT) 15, Alkaline Phosphatase 109, Total Protein 4.7L, Albumin 1.4L, Globulin 3.3, Albumin/Globulin Ratio 0.4L Height (Feet): 6 Height (Inches): 6.00 Weight (Pounds): 216 Neck: supple Cardiovascular: normal rate Respiratory/Chest: lungs clear Allison Mcpherson MD Nov 01, 2018 13:34
--- NOTE | 2018-11-01 19:22 | NUR ---
HAND-OFF: Report given to Dilia TORRES. Patient in stable condition.
--- NOTE | 2018-11-01 19:24 | NUR ---
NURSE NOTES: Received report from MELISSA Martinez.
--- NOTE | 2018-11-01 19:30 | Consultation ---
DATE OF CONSULTATION: 11/01/2018 INFECTIOUS DISEASES CONSULTATION CONSULTING PHYSICIAN: Wicho Wagner M.D. PRIMARY ATTENDING PHYSICIAN: Allison Mcpherson M.D. REASON FOR CONSULTATION: Pancytopenia including leukopenia. HISTORY OF PRESENT ILLNESS: The patient is a 63-year-old white male, admitted on 10/27/2018 because of altered mental status. The patient has history of cirrhosis of the liver and hyperammonemia at the time of admission. He has also end-stage renal disease, on hemodialysis. It was found that the patient's hemodialysis line was malpositioned and on 10/29/2018 he had line replacement. Because of anemia, the patient had EGD on 10/30/2018 that showed cirrhotic gastropathy. Since yesterday, the patient gradually developed leukopenia, also platelet count coming down. Hemoglobin not significantly changed since admission, but it is low. 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 ALLERGIES: No known drug allergies. MEDICATIONS: Lactulose, Protonix, Epogen, rifaximin, calcium acetate, clonidine, Flomax, insulin, hydralazine, Tylenol. SOCIAL HISTORY: , has no children. Quit alcohol abuse 20 years ago. Denies smoking and drug abuse. REVIEW OF SYSTEMS: No fever. No chills. No coughing. No shortness of breath. No nausea. No vomiting. Diarrhea that is attributed to the use of lactulose. No dysuria. PHYSICAL EXAMINATION: VITAL SIGNS: Temperature 97.7, pulse 52, blood pressure 140/78. GENERAL APPEARANCE: No acute distress. Ambulatory. HEAD AND NECK: Pale conjunctiva. HEART: S1 and S2 regular. LUNGS: Clear. ABDOMEN: Soft and nontender. EXTREMITIES: Left yqkix-mat-cenn amputation. LABORATORY AND DIAGNOSTIC DATA: WBC 1.9, hemoglobin 8.2, hematocrit 24.6, platelets 63,000. Sodium 136, potassium 3.6, chloride 105, bicarb 24, BUN 25, creatinine 3.7, glucose 225. LFTs within normal limits except albumin that is low at 1.4. Blood cultures x2 are negative. Chest x-ray at the time of admission showed massive right pleural effusion, malposition hemodialysis catheter. IMPRESSION: 1. Pancytopenia including leukopenia. 2. Alcoholic cirrhosis. 3. End-stage renal disease, on hemodialysis. 4. Diabetes mellitus. 5. Hypertension. 6. Right-sided pleural effusion. 7. Portal hypertension. 8. End-stage renal disease, on hemodialysis. RECOMMENDATIONS: 1. Observe off antibiotics. 2. We will follow up CBC. At the end of my exam, I thank Dr. Mcpherson, for involving me in the care of this patient. Wicho Wagner M.D. DR: Emilie JOB#: [id number] CC: [email or web address]
--- NOTE | 2018-11-01 19:40 | Consultation ---
History of Present Illness General Date patient seen: Nov 01, 2018 Chief Complaint: Altered Level of Consciousness Referring physician: ALISIA KING Reason for Consultation: Hepatic encephalopathy Present Illness Allergies: Coded Allergies: No Known Allergies (Unverified , 10/27/18) Medication History Scheduled Clonidine Hcl* (Catapres*), 0.2 MG ORAL Q8HR, (Reported) Ferrous Sulfate* (Ferrous Sulfate*), 325 MG ORAL THREE TIMES A DAY, (Reported) Folic Acid* (Folic Acid*), 1 MG ORAL DAILY, (Reported) Hydralazine Hcl* (Hydralazine Hcl*), 25 MG ORAL EVERY 6 HOURS, (Reported) Metolazone (Metolazone), 5 MG PO BID, (Reported) Metoprolol Tartrate* (Metoprolol Tartrate*), 100 MG ORAL EVERY 12 HOURS, ( Reported) Nifedipine Er* (Nifedipine Er*), 60 MG ORAL DAILY, (Reported) Miscellaneous Medications Lactulose (Lactulose*), Unknown Dose ORAL, (Reported) Patient History Healthcare decision maker Resuscitation status Full Code Advanced Directive on File No Physical Exam Last 24 Hour Vital Signs Date Time Temp Pulse Resp B/P (MAP) Pulse Ox O2 Delivery O2 Flow Rate FiO2 11/01/18 17:39 143/70 11/01/18 16:00 97.6 59 18 143/70 (94) 100 11/01/18 14:19 128/63 (84) 11/01/18 14:00 128/63 11/01/18 12:19 140/78 11/01/18 12:00 97.7 52 18 140/78 (98) 100 11/01/18 09:00 51 114/57 11/01/18 09:00 51 114/57 11/01/18 09:00 Room Air 11/01/18 08:00 97.5 51 19 114/57 (76) 100 11/01/18 05:46 141/60 11/01/18 05:46 141/60 11/01/18 04:00 97.9 69 18 141/60 (87) 97 11/01/18 00:42 139/64 11/01/18 00:00 97.5 57 18 139/64 (89) 98 10/31/18 22:53 155/76 10/31/18 21:00 Room Air 10/31/18 20:21 67 157/66 10/31/18 20:00 98.0 64 18 157/66 (96) 98 Intake and Output 10/31/18 11/01/18 18:59 06:59 Intake Total 730 ml Output Total 340 ml Balance 390 ml Intake Oral 480 ml Blood Product 250 ml Output Urine Total 340 ml Laboratory Tests Test 11/01/18 05:20 White Blood Count 1.9 K/UL (4.8-10.8) *L Red Blood Count 2.66 M/UL (4.70-6.10) L Hemoglobin 8.2 G/DL (14.2-18.0) L Hematocrit 24.6 % (42.0-52.0) L Mean Corpuscular Volume 92 FL (80-99) Mean Corpuscular Hemoglobin 30.8 PG (27.0-31.0) Mean Corpuscular Hemoglobin Concent 33.3 G/DL (32.0-36.0) Red Cell Distribution Width 13.6 % (11.6-14.8) Platelet Count 63 K/UL (150-450) L Mean Platelet Volume 7.0 FL (6.5-10.1) Neutrophils (%) (Auto) % (45.0-75.0) Lymphocytes (%) (Auto) % (20.0-45.0) Monocytes (%) (Auto) % (1.0-10.0) Eosinophils (%) (Auto) % (0.0-3.0) Basophils (%) (Auto) % (0.0-2.0) Differential Total Cells Counted 100 Neutrophils % (Manual) 52 % (45-75) Lymphocytes % (Manual) 33 % (20-45) Monocytes % (Manual) 8 % (1-10) Eosinophils % (Manual) 6 % (0-3) H Basophils % (Manual) 1 % (0-2) Band Neutrophils 0 % (0-8) Platelet Estimate Decreased L Platelet Morphology Normal Hypochromasia 1+ Sodium Level 136 MMOL/L (136-145) Potassium Level 3.6 MMOL/L (3.5-5.1) Chloride Level 105 MMOL/L (98-107) Carbon Dioxide Level 24 MMOL/L (21-32) Anion Gap 7 mmol/L (5-15) Blood Urea Nitrogen 25 mg/dL (7-18) H Creatinine 3.7 MG/DL (0.55-1.30) H Estimat Glomerular Filtration Rate 16.8 mL/min (>60) Glucose Level 225 MG/DL (74-106) H Calcium Level 7.4 MG/DL (8.5-10.1) L Total Bilirubin 0.6 MG/DL (0.2-1.0) Aspartate Amino Transf (AST/SGOT) 16 U/L (15-37) Alanine Aminotransferase (ALT/SGPT) 15 U/L (12-78) Alkaline Phosphatase 109 U/L (46-116) Total Protein 4.7 G/DL (6.4-8.2) L Albumin 1.4 G/DL (3.4-5.0) L Globulin 3.3 g/dL Albumin/Globulin Ratio 0.4 (1.0-2.7) L Height (Feet): 6 Height (Inches): 6.00 Weight (Pounds): 216 Medications Current Medications Medications (Trade) Dose Ordered Sig/Elsa Route PRN Reason Start Time Stop Time Status Last Admin Dose Admin Acetaminophen (Tylenol) 650 mg Q4H PRN ORAL Mild Pain/Temp > 100.5 10/27/18 16:00 11/26/18 15:59 Calcium Acetate (Phoslo) 1,334 mg TIAC ORAL 10/28/18 16:30 11/27/18 06:29 11/01/18 17:03 Clonidine HCl (Catapres tab) 0.2 mg Q8HR ORAL 10/27/18 22:00 11/26/18 21:59 11/01/18 05:46 Dextrose (Dextrose 50%) 25 ml Q30M PRN IV Hypoglycemia 10/27/18 18:15 11/26/18 18:14 Dextrose (Dextrose 50%) 50 ml Q30M PRN IV Hypoglycemia 10/27/18 18:15 11/26/18 18:14 Epoetin Jesse (Epoetin Jesse(ESRD on dialysis)) 10,000 unit FRI-FRI-FRI SUBQ 10/28/18 21:00 11/27/18 20:59 10/30/18 22:02 Hydralazine HCl (Apresoline) 25 mg EVERY 6 HOURS ORAL 10/27/18 18:00 11/26/18 17:59 11/01/18 17:39 Insulin Aspart (NovoLOG) BEFORE MEALS AND HS SUBQ 10/27/18 21:00 11/26/18 20:59 11/01/18 17:02 Lactulose (Cephulac) 20 gm THREE TIMES A DAY ORAL 11/01/18 13:00 11/26/18 17:59 11/01/18 17:39 Nifedipine (Procardia XL) 60 mg DAILY ORAL 10/28/18 09:00 11/27/18 08:59 10/29/18 09:24 Pantoprazole (Protonix) 40 mg DAILY ORAL 11/01/18 09:00 11/26/18 20:59 11/01/18 09:20 Rifaximin (Xifaxan) 550 mg EVERY 12 HOURS ORAL 10/28/18 21:00 11/04/18 20:59 11/01/18 09:20 Tamsulosin HCl (Flomax) 0.4 mg BEDTIME ORAL 10/27/18 21:00 11/26/18 20:59 10/31/18 20:20 Assessment/Plan Assessment/Plan Hematology Consultation REQ : Vida RFC: Panctyopenia DOS: 11/01/18 ID [id number] old male presents emergency department today with acute altered mental status. Patient apparently has not been feeling well. And then was supposed to go to a bar still to get dialysis but because his confusion cannot make it. Patient was in alcoholic in the past has history of liver cirrhosis. His ammonia level fluctuant appears be elevated today according to patient's which is why seems to be confused or no other complaints are noted. Symptoms noted to be severe. No other modifying factors. No other associated signs and symptoms. No other complaints were noted. Heme consulted for pancytopenia. Patient seen, awake alert and oriented x4 no apparent distress. No active signs or symptoms of nausea or vomiting. The patient denies any melena emesis or coffee grounds. Denies any hematochezia or melena. Patient has a history of cirrhosis, admitted with an ammonia level of 108. In addition has pancytopenia and hyper coagulation. The patient stated stated he had a recent colonoscopy approximately 1 year ago, but cannot recall the results. Is unsure of his last endoscopy or imaging study, states it was done a long time ago. The patient also states that he recently had a thoracentesis a week ago with approximately 1 L of yield. Egd was done which showed gastritis. Home Meds Reported Medications Lactulose (LACTULOSE*) 20 Gm/30 Ml Solution, ORAL, ML 0 Refills 10/27/18 Nifedipine Er* (NIFEDIPINE ER*) 60 Mg Tab.er.24, 60 MG ORAL DAILY, TAB 10/27/18 Ferrous Sulfate* (FERROUS SULFATE*) 325 Mg Tablet, 325 MG ORAL THREE TIMES A DAY , #90 TAB 0 Refills 10/27/18 Folic Acid* (FOLIC ACID*) 1 Mg Tablet, 1 MG ORAL DAILY, TAB 10/27/18 Metolazone (METOLAZONE) 5 Mg Tablet, 5 MG PO BID, TAB 10/27/18 Clonidine Hcl* (CATAPRES*) 0.2 Mg Tablet, 0.2 MG ORAL Q8HR, TAB 10/27/18 Metoprolol Tartrate* (METOPROLOL TARTRATE*) 100 Mg Tablet, 100 MG ORAL EVERY 12 HOURS, TAB 10/27/18 Hydralazine Hcl* (HYDRALAZINE HCL*) 10 Mg Tablet, 25 MG ORAL EVERY 6 HOURS, TAB 10/27/18 Med list reviewed/reconciled: Yes Allergies: Coded Allergies: No Known Allergies (Unverified , 10/27/18) History Provided By: Patient, Medical Record PMH Narrative Past Medical History: DM, HTN, renal disease, dialysis, other - Liver cirrhosis Past Surgical History: other - Jim catheter Pertinent Family History: none Social History: Denies: smoking, alcohol use, drug use Reviewed Nursing Documentation: PMH: Agreed; PSxH: Agreed Past Medical History: No History, Except For Hx Hypertension: Yes Hx Diabetes: Yes - cirrhosis Hx Dialysis: Yes - stalin, edvin and sat Social History: Reports: alcohol use - History of abuse Review of Systems: negative except mentioned in HPI Physical Exam: Last 24 Hour Vital Signs Date Time Temp Pulse Resp B/P (MAP) Pulse Ox O2 Delivery O2 Flow Rate FiO2 11/01/18 17:39 143/70 11/01/18 16:00 97.6 59 18 143/70 (94) 100 11/01/18 14:19 128/63 (84) 11/01/18 14:00 128/63 11/01/18 12:19 140/78 11/01/18 12:00 97.7 52 18 140/78 (98) 100 11/01/18 09:00 51 114/57 11/01/18 09:00 51 114/57 11/01/18 09:00 Room Air 11/01/18 08:00 97.5 51 19 114/57 (76) 100 11/01/18 05:46 141/60 11/01/18 05:46 141/60 11/01/18 04:00 97.9 69 18 141/60 (87) 97 11/01/18 00:42 139/64 11/01/18 00:00 97.5 57 18 139/64 (89) 98 10/31/18 22:53 155/76 10/31/18 21:00 Room Air 10/31/18 20:21 67 157/66 10/31/18 20:00 98.0 64 18 157/66 (96) 98 Laboratory Tests Test 10/28/18 06:00 White Blood Count 2.5 K/UL (4.8-10.8) L Red Blood Count 2.62 M/UL (4.70-6.10) L Hemoglobin 8.1 G/DL (14.2-18.0) L Hematocrit 24.8 % (42.0-52.0) L Mean Corpuscular Volume 95 FL (80-99) Mean Corpuscular Hemoglobin 31.0 PG (27.0-31.0) Mean Corpuscular Hemoglobin Concent 32.7 G/DL (32.0-36.0) Red Cell Distribution Width 13.6 % (11.6-14.8) Platelet Count 78 K/UL (150-450) L Mean Platelet Volume 6.0 FL (6.5-10.1) L Neutrophils (%) (Auto) % (45.0-75.0) Lymphocytes (%) (Auto) % (20.0-45.0) Monocytes (%) (Auto) % (1.0-10.0) Eosinophils (%) (Auto) % (0.0-3.0) Basophils (%) (Auto) % (0.0-2.0) Differential Total Cells Counted 100 Neutrophils % (Manual) 52 % (45-75) Lymphocytes % (Manual) 36 % (20-45) Monocytes % (Manual) 8 % (1-10) Eosinophils % (Manual) 4 % (0-3) H Basophils % (Manual) 0 % (0-2) Band Neutrophils 0 % (0-8) Platelet Estimate Decreased L Platelet Morphology Normal Hypochromasia 1+ Sodium Level 142 MMOL/L (136-145) Potassium Level 4.4 MMOL/L (3.5-5.1) Chloride Level 109 MMOL/L (98-107) H Carbon Dioxide Level 22 MMOL/L (21-32) Anion Gap 12 mmol/L (5-15) Blood Urea Nitrogen 54 mg/dL (7-18) H Creatinine 5.1 MG/DL (0.55-1.30) H Estimat Glomerular Filtration Rate 11.6 mL/min (>60) Glucose Level 147 MG/DL (74-106) H Hemoglobin A1c 6.6 % (4.3-6.0) H Uric Acid 5.6 MG/DL (2.6-7.2) Calcium Level 8.4 MG/DL (8.5-10.1) L Phosphorus Level 5.3 MG/DL (2.5-4.9) H Magnesium Level 2.1 MG/DL (1.8-2.4) Iron Level 55 ug/dL (50-175) Total Iron Binding Capacity 179 ug/dL (250-450) L Percent Iron Saturation 31 % (15-50) Unsaturated Iron Binding 124 ug/dL (112-346) Ferritin 296 NG/ML (8-388) Total Bilirubin 0.7 MG/DL (0.2-1.0) Gamma Glutamyl Transpeptidase 45 U/L (5-85) Aspartate Amino Transf (AST/SGOT) 26 U/L (15-37) Alanine Aminotransferase (ALT/SGPT) 24 U/L (12-78) Alkaline Phosphatase 134 U/L (46-116) H Total Creatine Kinase 91 U/L (26-308) Pro-B-Type Natriuretic Peptide 52736 pg/mL (0-125) H Total Protein 5.6 G/DL (6.4-8.2) L Albumin 1.8 G/DL (3.4-5.0) L Globulin 3.8 g/dL Albumin/Globulin Ratio 0.5 (1.0-2.7) L Triglycerides Level 38 MG/DL (30-150) Cholesterol Level 125 MG/DL (< 200) LDL Cholesterol 56 mg/dL (<100) HDL Cholesterol 67 MG/DL (40-60) H Cholesterol/HDL Ratio 1.9 (3.3-4.4) L Vitamin B12 Level 1278 PG/ML (193-986) H Folate 32.1 NG/ML (8.6-58.9) Thyroid Stimulating Hormone (TSH) 2.603 uiU/mL (0.358-3.740) General Appearance: well appearing Head: normocephalic EENT: PERRL/EOMI, normal ENT inspection Neck: supple Respiratory: normal breath sounds, no respiratory distress Cardiovascular: normal rate Gastrointestinal: normal inspection, non tender, soft, normal bowel sounds, non -distended, +Abdominal hernia Rectal: deferred Genitourinary: deferred Musculoskeletal: normal inspection, back normal Neurologic: normal inspection, alert, oriented x3, responsive Psychiatric: normal inspection, judgement/insight normal, memory normal Skin: normal inspection, normal color Lymphatic: normal inspection, no adenopathy Current Medications Medications (Trade) Dose Ordered Sig/Elsa Route PRN Reason Start Time Stop Time Status Last Admin Dose Admin Acetaminophen (Tylenol) 650 mg Q4H PRN ORAL Mild Pain/Temp > 100.5 10/27/18 16:00 11/26/18 15:59 Calcium Acetate (Phoslo) 1,334 mg TIAC ORAL 10/28/18 16:30 11/27/18 06:29 Clonidine HCl (Catapres tab) 0.2 mg Q8HR ORAL 10/27/18 22:00 11/26/18 21:59 10/28/18 06:19 Dextrose (Dextrose 50%) 25 ml Q30M PRN IV Hypoglycemia 10/27/18 18:15 11/26/18 18:14 Dextrose (Dextrose 50%) 50 ml Q30M PRN IV Hypoglycemia 10/27/18 18:15 11/26/18 18:14 Epoetin Jesse (Procrit (for ESRD on dialysis)) 10,000 units FRI-FRI-FRI SUBQ 10/28/18 21:00 11/27/18 20:59 Hydralazine HCl (Apresoline) 25 mg EVERY 6 HOURS ORAL 10/27/18 18:00 11/26/18 17:59 10/28/18 12:43 Insulin Aspart (NovoLOG) BEFORE MEALS AND HS SUBQ 10/27/18 21:00 11/26/18 20:59 10/28/18 12:43 Lactulose (Cephulac) 30 gm THREE TIMES A DAY ORAL 10/27/18 18:00 11/26/18 17:59 10/28/18 12:42 Metoprolol Tartrate (Lopressor) 100 mg EVERY 12 HOURS ORAL 10/27/18 21:00 11/26/18 20:59 10/28/18 10:03 Nifedipine (Procardia XL) 60 mg DAILY ORAL 10/28/18 09:00 11/27/18 08:59 10/28/18 10:02 Pantoprazole (Protonix) 40 mg Q12HR ORAL 10/27/18 21:00 11/26/18 20:59 10/28/18 10:02 Rifaximin (Xifaxan) 550 mg EVERY 12 HOURS ORAL 10/28/18 21:00 11/04/18 20:59 Tamsulosin HCl (Flomax) 0.4 mg BEDTIME ORAL 10/27/18 21:00 11/26/18 20:59 10/27/18 21:17 Assessment and Recs: # Pancytopenia -- multiple etiologies could be related to underlying liver disease, medication-induced, infection versus viral syndrome --> peripheral smear has been ordered and does not show significant abnormlaities --> Continue to monitor for improvement --> Hep panel and HIV have been ordered --> US abd ordered to r/o cirrhosis and hepatosplenomegaly --> Give neupogen if ANC <1000 (given 11/01/18) --> Transfuse if hgb <7, with 1 unit prbc # Anemia due to underlying kidney disease --> anemia panel reviewed and consistent with acd --> panel ordered # ESRD (end stage renal disease) --> has a right permacath --> appreciate renal recs # Hepatic encephalopathy --> Continue lactulose, will add Xifaxan --> as per gi recs # Fluid overload # DM # HTN The timing of this note does not necessarily reflect the time of the patient was seen Greatly appreciate consultation! William Hammond MD Nov 01, 2018 19:40
[2018-11-01] MEDS: Tamsulosin 0.4mg cap ORAL SCH (21:19)
[2018-11-01 21:29] LABS: FERRITIN 247 NG/ML (8-388); LACTATE DEHYDROGENASE 211 U/L (81-234)
--- NOTE | 2018-11-01 21:37 | NUR ---
NURSE NOTES: Patient in bed, aox4. VSS, No signs of distress, no pain noted. Due meds given, needs attended to. bed low, call light within reach
[2018-11-01 21:41] LABS: % IRON SATURATION 33 % (15-50); IRON 62 ug/dL (50-175); TOTAL IRON BINDING CAPACITY 186 ug/dL (250-450)
[2018-11-02] VITALS: BP 133/74
[2018-11-02] MEDS: HydrALAZINE 25mg tab ORAL SCH ×4 (01:10→17:39)
[2018-11-02 04:00] VITALS: BP 140/63
[2018-11-02] MEDS: Calcium Acetate 667mg Tab ORAL SCH ×3 (05:42→17:39)
[2018-11-02] MEDS: cloNIDine 0.2mg Tab ORAL SCH (05:44)
[2018-11-02] MEDS: NovoLOG Insulin Flexpen SUBQ SCH ×4 (05:50→21:38)
[2018-11-02 07:00] LABS: HEMATOCRIT 27.7 % (42.0-52.0); MEAN CORPUSCULAR VOLUME 92 FL (80-99); PLATELET COUNT 59 K/UL (150-450); RED BLOOD COUNT 3.03 M/UL (4.70-6.10); WHITE BLOOD COUNT 6.4 K/UL (4.8-10.8)
[2018-11-02 07:06] LABS: AMMONIA 146 umol/L (11-32)
[2018-11-02 07:18] LABS: ALANINE AMINOTRANSFERASE 14 U/L (12-78); ALBUMIN 1.6 G/DL (3.4-5.0); ALBUMIN/GLOBULIN RATIO 0.5 (1.0-2.7); ALKALINE PHOSPHATASE 119 U/L (46-116); ANION GAP 10 mmol/L (5-15); ASPARTATE AMINO TRANSFERASE 17 U/L (15-37); BILIRUBIN,TOTAL 0.7 MG/DL (0.2-1.0); BLOOD UREA NITROGEN 32 mg/dL (7-18); CALCIUM 7.7 MG/DL (8.5-10.1); CARBON DIOXIDE 23 MMOL/L (21-32); CHLORIDE 104 MMOL/L (98-107); CREATININE 4.7 MG/DL (0.55-1.30); PHOSPHORUS 3.1 MG/DL (2.5-4.9); POTASSIUM 3.5 MMOL/L (3.5-5.1); SODIUM 137 MMOL/L (136-145)
--- NOTE | 2018-11-02 07:34 | NUR ---
HAND-OFF: Report given to MELISSA Coyle. Patient stable.
[2018-11-02 07:37] LABS: HEMOGLOBIN 9.2 G/DL (14.2-18.0)
[2018-11-02 08:00] VITALS: BP 112/58
--- NOTE | 2018-11-02 08:00 | NUR ---
NURSE NOTES: Received report from Dilia TORRES, pt a/a/o x4 laying in bed with no signs of distress or other issues at this time. IV on the Left AC gauge#22 heplock. call light within reach. bed in lowest position. side rales up x2. I will f/u as needed.
[2018-11-02] MEDS: Lactulose 20gm/30ml UDC ORAL SCH ×3 (09:18→17:38)
--- NOTE | 2018-11-02 11:12 | GI Progress Note ---
Assessment/Plan Problems: (1) Hepatic encephalopathy ICD Codes: K72.90 - Hepatic failure, unspecified without coma SNOMED: 18479943 (2) Fluid overload ICD Codes: E87.70 - Fluid overload, unspecified SNOMED: 19218597 (3) Pancytopenia ICD Codes: D61.818 - Other pancytopenia SNOMED: 933309983 (4) Hypertensive kidney disease ICD Codes: I12.9 - Hypertensive chronic kidney disease with stage 1 through stage 4 chronic kidney disease, or unspecified chronic kidney disease SNOMED: 58106018 (5) Diabetic nephropathy ICD Codes: E11.21 - Type 2 diabetes mellitus with diabetic nephropathy SNOMED: 232296924 (6) ESRD (end stage renal disease) ICD Codes: N18.6 - End stage renal disease SNOMED: 96280296 (7) Altered level of consciousness ICD Codes: R40.4 - Transient alteration of awareness SNOMED: 9443489 Status: stable Status Narrative Discussed with Dr. Mendoza Assessment/Plan SUMMARY OF FINDINGS: 1. Minimal distal esophagitis. 2. Portal hypertensive gastropathy. 3. Duodenitis. RECOMMENDATIONS: Treat for cirrhosis. Avoid alcohol. Follow labs. Follow biopsy results. Discharge planning per primary team. Needs outpatient followup. The patient was seen and examined at bedside and all new and available data was reviewed in the patients chart. I agree with the above findings, impression and plan. (Patient seen earlier today. Signature stamp does not reflect patient encounter time.). - Karan Mendoza MD Subjective Gastrointestinal/Abdominal: Reports: no symptoms Subjective Limited Objective Last 24 Hour Vital Signs Date Time Temp Pulse Resp B/P (MAP) Pulse Ox O2 Delivery O2 Flow Rate FiO2 11/02/18 09:00 57 112/58 11/02/18 08:00 97.8 57 20 112/58 (76) 98 11/02/18 05:44 140/63 11/02/18 05:44 140/63 11/02/18 04:00 98.2 69 18 140/63 (88) 98 11/02/18 01:10 133/74 11/02/18 00:00 98.1 65 18 133/74 (93) 99 11/01/18 21:19 137/71 11/01/18 21:00 Room Air 11/01/18 20:00 98.3 62 18 137/71 (93) 99 11/01/18 17:39 143/70 11/01/18 16:00 97.6 59 18 143/70 (94) 100 11/01/18 14:19 128/63 (84) 11/01/18 14:00 128/63 11/01/18 12:19 140/78 11/01/18 12:00 97.7 52 18 140/78 (98) 100 Intake and Output 11/01/18 11/02/18 19:00 07:00 Intake Total 560 ml Balance 560 ml Intake Oral 560 ml # Voids 1 # Bowel Movements 1 Laboratory Tests Test 11/01/18 20:33 11/02/18 05:00 Fibrinogen 222 mg/dL (200-400) White Blood Count 6.4 K/UL (4.8-10.8) # Red Blood Count 3.03 M/UL (4.70-6.10) L Hemoglobin 9.2 G/DL (14.2-18.0) L Hematocrit 27.7 % (42.0-52.0) L Mean Corpuscular Volume 92 FL (80-99) Mean Corpuscular Hemoglobin 30.4 PG (27.0-31.0) Mean Corpuscular Hemoglobin Concent 33.1 G/DL (32.0-36.0) Red Cell Distribution Width 14.0 % (11.6-14.8) Platelet Count 59 K/UL (150-450) L Mean Platelet Volume 6.4 FL (6.5-10.1) L Neutrophils (%) (Auto) % (45.0-75.0) Lymphocytes (%) (Auto) % (20.0-45.0) Monocytes (%) (Auto) % (1.0-10.0) Eosinophils (%) (Auto) % (0.0-3.0) Basophils (%) (Auto) % (0.0-2.0) Neutrophils % (Manual) Pending Lymphocytes % (Manual) Pending Platelet Estimate Pending Platelet Morphology Pending Sodium Level 137 MMOL/L (136-145) Potassium Level 3.5 MMOL/L (3.5-5.1) Chloride Level 104 MMOL/L (98-107) Carbon Dioxide Level 23 MMOL/L (21-32) Anion Gap 10 mmol/L (5-15) Blood Urea Nitrogen 32 mg/dL (7-18) H Creatinine 4.7 MG/DL (0.55-1.30) H Estimat Glomerular Filtration Rate 12.7 mL/min (>60) Glucose Level 182 MG/DL (74-106) H Calcium Level 7.7 MG/DL (8.5-10.1) L Phosphorus Level 3.1 MG/DL (2.5-4.9) Total Bilirubin 0.7 MG/DL (0.2-1.0) Aspartate Amino Transf (AST/SGOT) 17 U/L (15-37) Alanine Aminotransferase (ALT/SGPT) 14 U/L (12-78) Alkaline Phosphatase 119 U/L (46-116) H Ammonia 146 umol/L (11-32) H Total Protein 5.1 G/DL (6.4-8.2) L Albumin 1.6 G/DL (3.4-5.0) L Globulin 3.5 g/dL Albumin/Globulin Ratio 0.5 (1.0-2.7) L Height (Feet): 6 Height (Inches): 6.00 Weight (Pounds): 216 General Appearance: WD/WN, no apparent distress, alert Cardiovascular: normal rate Respiratory/Chest: normal breath sounds, no respiratory distress Abdominal Exam: normal bowel sounds, non tender, soft Extremities: normal range of motion, non-tender Kadeem Saucedo NP Nov 02, 2018 11:12
--- NOTE | 2018-11-02 11:28 | Infectious Diseases Prog Note ---
Assessment/Plan Assessment/Plan antibiotics : none A 1. fever resolved 2. diabetes mellitus 3. hypertension 4. renal failure 5. cirrhosis of liver P 1. continue off antibiotics Subjective Constitutional: Denies: fever, chills Respiratory: Denies: shortness of breath, dry cough Gastrointestinal/Abdominal: Denies: nausea, vomiting, diarrhea Allergies: Coded Allergies: No Known Allergies (Unverified , 10/27/18) Objective Vital Signs Last 24 Hour Vital Signs Date Time Temp Pulse Resp B/P (MAP) Pulse Ox O2 Delivery O2 Flow Rate FiO2 11/02/18 09:00 57 112/58 11/02/18 08:00 97.8 57 20 112/58 (76) 98 11/02/18 05:44 140/63 11/02/18 05:44 140/63 11/02/18 04:00 98.2 69 18 140/63 (88) 98 11/02/18 01:10 133/74 11/02/18 00:00 98.1 65 18 133/74 (93) 99 11/01/18 21:19 137/71 11/01/18 21:00 Room Air 11/01/18 20:00 98.3 62 18 137/71 (93) 99 11/01/18 17:39 143/70 11/01/18 16:00 97.6 59 18 143/70 (94) 100 11/01/18 14:19 128/63 (84) 11/01/18 14:00 128/63 11/01/18 12:19 140/78 11/01/18 12:00 97.7 52 18 140/78 (98) 100 Height (Feet): 6 Height (Inches): 6.00 Weight (Pounds): 216 Respiratory/Chest: lungs clear Cardiovascular: normal rate, regular rhythm, no gallop/murmur Abdomen: soft, non tender Extremities: no edema Laboratory Tests Test 11/01/18 20:33 11/02/18 05:00 Fibrinogen 222 mg/dL (200-400) White Blood Count 6.4 K/UL (4.8-10.8) # Red Blood Count 3.03 M/UL (4.70-6.10) L Hemoglobin 9.2 G/DL (14.2-18.0) L Hematocrit 27.7 % (42.0-52.0) L Mean Corpuscular Volume 92 FL (80-99) Mean Corpuscular Hemoglobin 30.4 PG (27.0-31.0) Mean Corpuscular Hemoglobin Concent 33.1 G/DL (32.0-36.0) Red Cell Distribution Width 14.0 % (11.6-14.8) Platelet Count 59 K/UL (150-450) L Mean Platelet Volume 6.4 FL (6.5-10.1) L Neutrophils (%) (Auto) % (45.0-75.0) Lymphocytes (%) (Auto) % (20.0-45.0) Monocytes (%) (Auto) % (1.0-10.0) Eosinophils (%) (Auto) % (0.0-3.0) Basophils (%) (Auto) % (0.0-2.0) Neutrophils % (Manual) Pending Lymphocytes % (Manual) Pending Platelet Estimate Pending Platelet Morphology Pending Sodium Level 137 MMOL/L (136-145) Potassium Level 3.5 MMOL/L (3.5-5.1) Chloride Level 104 MMOL/L (98-107) Carbon Dioxide Level 23 MMOL/L (21-32) Anion Gap 10 mmol/L (5-15) Blood Urea Nitrogen 32 mg/dL (7-18) H Creatinine 4.7 MG/DL (0.55-1.30) H Estimat Glomerular Filtration Rate 12.7 mL/min (>60) Glucose Level 182 MG/DL (74-106) H Calcium Level 7.7 MG/DL (8.5-10.1) L Phosphorus Level 3.1 MG/DL (2.5-4.9) Total Bilirubin 0.7 MG/DL (0.2-1.0) Aspartate Amino Transf (AST/SGOT) 17 U/L (15-37) Alanine Aminotransferase (ALT/SGPT) 14 U/L (12-78) Alkaline Phosphatase 119 U/L (46-116) H Ammonia 146 umol/L (11-32) H Total Protein 5.1 G/DL (6.4-8.2) L Albumin 1.6 G/DL (3.4-5.0) L Globulin 3.5 g/dL Albumin/Globulin Ratio 0.5 (1.0-2.7) L Current Medications Medications (Trade) Dose Ordered Sig/Elsa Route PRN Reason Start Time Stop Time Status Last Admin Dose Admin Acetaminophen (Tylenol) 650 mg Q4H PRN ORAL Mild Pain/Temp > 100.5 10/27/18 16:00 11/26/18 15:59 Calcium Acetate (Phoslo) 1,334 mg TIAC ORAL 10/28/18 16:30 11/27/18 06:29 11/02/18 05:42 Clonidine HCl (Catapres tab) 0.2 mg Q8HR ORAL 10/27/18 22:00 11/26/18 21:59 11/02/18 05:44 Dextrose (Dextrose 50%) 25 ml Q30M PRN IV Hypoglycemia 10/27/18 18:15 11/26/18 18:14 Dextrose (Dextrose 50%) 50 ml Q30M PRN IV Hypoglycemia 10/27/18 18:15 11/26/18 18:14 Epoetin Jesse (Epoetin Jesse(ESRD on dialysis)) 10,000 unit FRI-FRI-FRI SUBQ 10/28/18 21:00 11/27/18 20:59 10/30/18 22:02 Hydralazine HCl (Apresoline) 25 mg EVERY 6 HOURS ORAL 10/27/18 18:00 11/26/18 17:59 11/02/18 05:44 Insulin Aspart (NovoLOG) BEFORE MEALS AND HS SUBQ 10/27/18 21:00 11/26/18 20:59 11/01/18 21:21 Lactulose (Cephulac) 20 gm THREE TIMES A DAY ORAL 11/01/18 13:00 11/26/18 17:59 11/02/18 09:18 Nifedipine (Procardia XL) 60 mg DAILY ORAL 10/28/18 09:00 11/27/18 08:59 10/29/18 09:24 Pantoprazole (Protonix) 40 mg DAILY ORAL 11/01/18 09:00 11/26/18 20:59 11/02/18 09:18 Rifaximin (Xifaxan) 550 mg EVERY 12 HOURS ORAL 10/28/18 21:00 11/04/18 20:59 11/02/18 09:18 Tamsulosin HCl (Flomax) 0.4 mg BEDTIME ORAL 10/27/18 21:00 11/26/18 20:59 11/01/18 21:19 Rebecca Javier MD Nov 02, 2018 11:28
[2018-11-02 12:00] VITALS: BP 120/60
--- NOTE | 2018-11-02 12:17 | Nephrology Progress Note ---
Assessment/Plan Problem List: (1) Hepatic encephalopathy (2) ESRD (end stage renal disease) (3) Hypertensive kidney disease (4) Diabetic nephropathy Assessment ESRD right permacath Hepatic Encephalopathy Anemia of CKD DM HTN Plan Right Permacath not in proper position- HD next 11/03 lactulose Renal diet phos binders EPO BP meds adjustment per orders ? Dc planning Subjective ROS Limited/Unobtainable: No Constitutional: Reports: malaise Objective Objective Last 24 Hour Vital Signs Date Time Temp Pulse Resp B/P (MAP) Pulse Ox O2 Delivery O2 Flow Rate FiO2 11/02/18 09:00 57 112/58 11/02/18 08:00 97.8 57 20 112/58 (76) 98 11/02/18 05:44 140/63 11/02/18 05:44 140/63 11/02/18 04:00 98.2 69 18 140/63 (88) 98 11/02/18 01:10 133/74 11/02/18 00:00 98.1 65 18 133/74 (93) 99 11/01/18 21:19 137/71 11/01/18 21:00 Room Air 11/01/18 20:00 98.3 62 18 137/71 (93) 99 11/01/18 17:39 143/70 11/01/18 16:00 97.6 59 18 143/70 (94) 100 11/01/18 14:19 128/63 (84) 11/01/18 14:00 128/63 11/01/18 12:19 140/78 Intake and Output 11/01/18 11/02/18 19:00 07:00 Intake Total 560 ml Balance 560 ml Intake Oral 560 ml # Voids 1 # Bowel Movements 1 Laboratory Tests 11/01/18 20:33: Fibrinogen 222 11/02/18 05:00: White Blood Count 6.4#, Red Blood Count 3.03L, Hemoglobin 9.2L, Hematocrit 27.7L , Mean Corpuscular Volume 92, Mean Corpuscular Hemoglobin 30.4, Mean Corpuscular Hemoglobin Concent 33.1, Red Cell Distribution Width 14.0, Platelet Count 59L, Mean Platelet Volume 6.4L, Neutrophils (%) (Auto) , Lymphocytes (%) ( Auto) , Monocytes (%) (Auto) , Eosinophils (%) (Auto) , Basophils (%) (Auto) , Neutrophils % (Manual) [Pending], Lymphocytes % (Manual) [Pending], Platelet Estimate [Pending], Platelet Morphology [Pending], Sodium Level 137, Potassium Level 3.5, Chloride Level 104, Carbon Dioxide Level 23, Anion Gap 10, Blood Urea Nitrogen 32H, Creatinine 4.7H, Estimat Glomerular Filtration Rate 12.7, Glucose Level 182H, Calcium Level 7.7L, Phosphorus Level 3.1, Total Bilirubin 0.7, Aspartate Amino Transf (AST/SGOT) 17, Alanine Aminotransferase (ALT/SGPT) 14, Alkaline Phosphatase 119H, Ammonia 146H, Total Protein 5.1L, Albumin 1.6L, Globulin 3.5, Albumin/Globulin Ratio 0.5L Height (Feet): 6 Height (Inches): 6.00 Weight (Pounds): 216 General Appearance: no apparent distress Cardiovascular: normal rate Respiratory/Chest: decreased breath sounds Objective no change Bob Hogan MD Nov 02, 2018 12:17
--- NOTE | 2018-11-02 13:00 | NUR ---
NURSE NOTES: Received order for HD for 11/03/18. RN called [facility] at: [phone](P) s/w Karla, she stated that she will send someone tomorrow before 12:00. I will f/u as needed.
--- NOTE | 2018-11-02 14:52 | Cardiac Electrophysiology PN ---
Subjective Subjective [id number] Objective Last 24 Hour Vital Signs Date Time Temp Pulse Resp B/P (MAP) Pulse Ox O2 Delivery O2 Flow Rate FiO2 11/02/18 12:45 130/60 11/02/18 12:00 98.3 60 20 120/60 (80) 99 11/02/18 09:00 Room Air 11/02/18 09:00 57 112/58 11/02/18 08:00 97.8 57 20 112/58 (76) 98 11/02/18 05:44 140/63 11/02/18 05:44 140/63 11/02/18 04:00 98.2 69 18 140/63 (88) 98 11/02/18 01:10 133/74 11/02/18 00:00 98.1 65 18 133/74 (93) 99 11/01/18 21:19 137/71 11/01/18 21:00 Room Air 11/01/18 20:00 98.3 62 18 137/71 (93) 99 11/01/18 17:39 143/70 11/01/18 16:00 97.6 59 18 143/70 (94) 100 Intake and Output 11/01/18 11/02/18 19:00 07:00 Intake Total 560 ml Balance 560 ml Intake Oral 560 ml # Voids 1 # Bowel Movements 1 Laboratory Tests Test 11/01/18 20:33 11/02/18 05:00 Fibrinogen 222 mg/dL (200-400) White Blood Count 6.4 K/UL (4.8-10.8) # Red Blood Count 3.03 M/UL (4.70-6.10) L Hemoglobin 9.2 G/DL (14.2-18.0) L Hematocrit 27.7 % (42.0-52.0) L Mean Corpuscular Volume 92 FL (80-99) Mean Corpuscular Hemoglobin 30.4 PG (27.0-31.0) Mean Corpuscular Hemoglobin Concent 33.1 G/DL (32.0-36.0) Red Cell Distribution Width 14.0 % (11.6-14.8) Platelet Count 59 K/UL (150-450) L Mean Platelet Volume 6.4 FL (6.5-10.1) L Neutrophils (%) (Auto) % (45.0-75.0) Lymphocytes (%) (Auto) % (20.0-45.0) Monocytes (%) (Auto) % (1.0-10.0) Eosinophils (%) (Auto) % (0.0-3.0) Basophils (%) (Auto) % (0.0-2.0) Differential Total Cells Counted 100 Neutrophils % (Manual) 82 % (45-75) H Lymphocytes % (Manual) 3 % (20-45) L Monocytes % (Manual) 7 % (1-10) Eosinophils % (Manual) 3 % (0-3) Basophils % (Manual) 0 % (0-2) Band Neutrophils 5 % (0-8) Platelet Estimate Decreased L Platelet Morphology Normal Red Blood Cell Morphology Normal Sodium Level 137 MMOL/L (136-145) Potassium Level 3.5 MMOL/L (3.5-5.1) Chloride Level 104 MMOL/L (98-107) Carbon Dioxide Level 23 MMOL/L (21-32) Anion Gap 10 mmol/L (5-15) Blood Urea Nitrogen 32 mg/dL (7-18) H Creatinine 4.7 MG/DL (0.55-1.30) H Estimat Glomerular Filtration Rate 12.7 mL/min (>60) Glucose Level 182 MG/DL (74-106) H Calcium Level 7.7 MG/DL (8.5-10.1) L Phosphorus Level 3.1 MG/DL (2.5-4.9) Total Bilirubin 0.7 MG/DL (0.2-1.0) Aspartate Amino Transf (AST/SGOT) 17 U/L (15-37) Alanine Aminotransferase (ALT/SGPT) 14 U/L (12-78) Alkaline Phosphatase 119 U/L (46-116) H Ammonia 146 umol/L (11-32) H Total Protein 5.1 G/DL (6.4-8.2) L Albumin 1.6 G/DL (3.4-5.0) L Globulin 3.5 g/dL Albumin/Globulin Ratio 0.5 (1.0-2.7) L John Linton MD Nov 02, 2018 14:52
--- NOTE | 2018-11-02 15:00 | General Progress Note ---
Assessment/Plan Problem List: (1) Hepatic encephalopathy ICD Codes: K72.90 - Hepatic failure, unspecified without coma SNOMED: 44145809 (2) ESRD (end stage renal disease) ICD Codes: N18.6 - End stage renal disease SNOMED: 75452403 (3) Hypertensive kidney disease ICD Codes: I12.9 - Hypertensive chronic kidney disease with stage 1 through stage 4 chronic kidney disease, or unspecified chronic kidney disease SNOMED: 16092920 (4) Diabetic nephropathy ICD Codes: E11.21 - Type 2 diabetes mellitus with diabetic nephropathy SNOMED: 572522103 (5) Fluid overload ICD Codes: E87.70 - Fluid overload, unspecified SNOMED: 43352689 (6) Pancytopenia ICD Codes: D61.818 - Other pancytopenia SNOMED: 084578372 (7) Altered level of consciousness ICD Codes: R40.4 - Transient alteration of awareness SNOMED: 9070391 Status: progressing Assessment/Plan etoh cihhrosis severe pancytopenia due to etoh juandice is improving afebrile no wheezing afebrile esrd on hd lyte abnormaltity endoscopy done and show gastritis Subjective ROS Limited/Unobtainable: Yes Constitutional: Reports: no symptoms Allergies: Coded Allergies: No Known Allergies (Unverified , 10/27/18) Objective Last 24 Hour Vital Signs Date Time Temp Pulse Resp B/P (MAP) Pulse Ox O2 Delivery O2 Flow Rate FiO2 11/02/18 14:57 153/75 11/02/18 12:45 130/60 11/02/18 12:00 98.3 60 20 120/60 (80) 99 11/02/18 09:00 Room Air 11/02/18 09:00 57 112/58 11/02/18 08:00 97.8 57 20 112/58 (76) 98 11/02/18 05:44 140/63 11/02/18 05:44 140/63 11/02/18 04:00 98.2 69 18 140/63 (88) 98 11/02/18 01:10 133/74 11/02/18 00:00 98.1 65 18 133/74 (93) 99 11/01/18 21:19 137/71 11/01/18 21:00 Room Air 11/01/18 20:00 98.3 62 18 137/71 (93) 99 11/01/18 17:39 143/70 11/01/18 16:00 97.6 59 18 143/70 (94) 100 Intake and Output 11/01/18 11/02/18 19:00 07:00 Intake Total 560 ml Balance 560 ml Intake Oral 560 ml # Voids 1 # Bowel Movements 1 Laboratory Tests 11/01/18 20:33: Fibrinogen 222 11/02/18 05:00: White Blood Count 6.4#, Red Blood Count 3.03L, Hemoglobin 9.2L, Hematocrit 27.7L , Mean Corpuscular Volume 92, Mean Corpuscular Hemoglobin 30.4, Mean Corpuscular Hemoglobin Concent 33.1, Red Cell Distribution Width 14.0, Platelet Count 59L, Mean Platelet Volume 6.4L, Neutrophils (%) (Auto) , Lymphocytes (%) ( Auto) , Monocytes (%) (Auto) , Eosinophils (%) (Auto) , Basophils (%) (Auto) , Differential Total Cells Counted 100, Neutrophils % (Manual) 82H, Lymphocytes % (Manual) 3L, Monocytes % (Manual) 7, Eosinophils % (Manual) 3, Basophils % ( Manual) 0, Band Neutrophils 5, Platelet Estimate DecreasedL, Platelet Morphology Normal, Red Blood Cell Morphology Normal, Sodium Level 137, Potassium Level 3.5, Chloride Level 104, Carbon Dioxide Level 23, Anion Gap 10, Blood Urea Nitrogen 32H, Creatinine 4.7H, Estimat Glomerular Filtration Rate 12.7, Glucose Level 182H, Calcium Level 7.7L, Phosphorus Level 3.1, Total Bilirubin 0.7, Aspartate Amino Transf (AST/SGOT) 17, Alanine Aminotransferase ( ALT/SGPT) 14, Alkaline Phosphatase 119H, Ammonia 146H, Total Protein 5.1L, Albumin 1.6L, Globulin 3.5, Albumin/Globulin Ratio 0.5L Height (Feet): 6 Height (Inches): 6.00 Weight (Pounds): 216 EENT: PERRL/EOMI Cardiovascular: normal rate Respiratory/Chest: lungs clear Allison Mcpherson MD Nov 02, 2018 15:00
[2018-11-02 16:00] VITALS: BP 153/71
--- NOTE | 2018-11-02 16:35 | General Progress Note ---
Assessment/Plan Assessment/Plan Assessment and Recs: # Pancytopenia -- multiple etiologies could be related to underlying liver disease, medication-induced, infection versus viral syndrome --> peripheral smear has been ordered and does not show significant abnormlaities --> Continue to monitor for improvement --> Hep panel and HIV have been ordered --> US abd ordered to r/o cirrhosis and hepatosplenomegaly --> Give neupogen if ANC <1000 (given 11/01/18) --> Transfuse if hgb <7, with 1 unit prbc # Anemia due to underlying kidney disease --> anemia panel reviewed and consistent with acd --> panel reviewed, ferritin 247 # ESRD (end stage renal disease) --> has a right permacath --> appreciate renal recs # Hepatic encephalopathy --> Continue lactulose, will add Xifaxan --> as per gi recs # Fluid overload # DM # HTN The timing of this note does not necessarily reflect the time of the patient was seen Greatly appreciate consultation! Subjective Constitutional: Denies: no symptoms, chills, diaphoresis, fever, malaise, weakness, other HEENT: Denies: no symptoms, eye pain, blurred vision, tearing, double vision, ear pain, ear discharge, nose pain, nose congestion, throat pain, throat swelling, mouth pain, mouth swelling, other Cardiovascular: Denies: no symptoms, chest pain, edema, irregular heart rate, lightheadedness, palpitations, syncope, other Respiratory: Denies: no symptoms, cough, orthopnea, shortness of breath, SOB with excertion, SOB at rest, sputum, stridor, wheezing, other Gastrointestinal/Abdominal: Denies: no symptoms, abdomen distended, abdominal pain, black stools, tarry stools, blood in stool, constipated, diarrhea, difficulty swallowing, nausea, poor appetite, poor fluid intake, rectal bleeding , vomiting, other Genitourinary: Denies: no symptoms, burning, discharge, frequency, flank pain, hematuria, incontinence, pain, urgency, other Neurologic/Psychiatric: Denies: no symptoms, anxiety, depressed, emotional problems, headache, numbness, paresthesia, pre-existing deficit, seizure, tingling, tremors, weakness, other Endocrine: Denies: no symptoms, excessive sweating, flushing, intolerance to cold, intolerance to heat, increased hunger, increased thirst, increased urine, unexplained weight gain, unexplained weight loss, other Hematologic/Lymphatic: Denies: no symptoms, anemia, easy bleeding, easy bruising, other Allergies: Coded Allergies: No Known Allergies (Unverified , 10/27/18) Subjective 11/02: seen by bedside, no wheezing, afebrile, endoscopy done and show gastritis , plt remains low at 59. Objective Last 24 Hour Vital Signs Date Time Temp Pulse Resp B/P (MAP) Pulse Ox O2 Delivery O2 Flow Rate FiO2 11/02/18 14:57 153/75 11/02/18 12:45 130/60 11/02/18 12:00 98.3 60 20 120/60 (80) 99 11/02/18 09:00 Room Air 11/02/18 09:00 57 112/58 11/02/18 08:00 97.8 57 20 112/58 (76) 98 11/02/18 05:44 140/63 11/02/18 05:44 140/63 11/02/18 04:00 98.2 69 18 140/63 (88) 98 11/02/18 01:10 133/74 11/02/18 00:00 98.1 65 18 133/74 (93) 99 11/01/18 21:19 137/71 11/01/18 21:00 Room Air 11/01/18 20:00 98.3 62 18 137/71 (93) 99 11/01/18 17:39 143/70 Intake and Output 11/01/18 11/02/18 18:59 06:59 Intake Total 560 ml Balance 560 ml Intake Oral 560 ml # Voids 1 # Bowel Movements 1 Laboratory Tests 11/01/18 20:33: Fibrinogen 222 11/02/18 05:00: White Blood Count 6.4#, Red Blood Count 3.03L, Hemoglobin 9.2L, Hematocrit 27.7L , Mean Corpuscular Volume 92, Mean Corpuscular Hemoglobin 30.4, Mean Corpuscular Hemoglobin Concent 33.1, Red Cell Distribution Width 14.0, Platelet Count 59L, Mean Platelet Volume 6.4L, Neutrophils (%) (Auto) , Lymphocytes (%) ( Auto) , Monocytes (%) (Auto) , Eosinophils (%) (Auto) , Basophils (%) (Auto) , Differential Total Cells Counted 100, Neutrophils % (Manual) 82H, Lymphocytes % (Manual) 3L, Monocytes % (Manual) 7, Eosinophils % (Manual) 3, Basophils % ( Manual) 0, Band Neutrophils 5, Platelet Estimate DecreasedL, Platelet Morphology Normal, Red Blood Cell Morphology Normal, Sodium Level 137, Potassium Level 3.5, Chloride Level 104, Carbon Dioxide Level 23, Anion Gap 10, Blood Urea Nitrogen 32H, Creatinine 4.7H, Estimat Glomerular Filtration Rate 12.7, Glucose Level 182H, Calcium Level 7.7L, Phosphorus Level 3.1, Total Bilirubin 0.7, Aspartate Amino Transf (AST/SGOT) 17, Alanine Aminotransferase ( ALT/SGPT) 14, Alkaline Phosphatase 119H, Ammonia 146H, Total Protein 5.1L, Albumin 1.6L, Globulin 3.5, Albumin/Globulin Ratio 0.5L Height (Feet): 6 Height (Inches): 6.00 Weight (Pounds): 216 Objective General Appearance: well appearing Respiratory: normal breath sounds, no respiratory distress Cardiovascular: normal rate Gastrointestinal: normal inspection, non tender, soft, normal bowel sounds, non -distended, +Abdominal hernia Genitourinary: deferred Musculoskeletal: normal inspection, back normal William Hammond MD Nov 02, 2018 16:35
--- NOTE | 2018-11-02 17:17 | Diagnostic Imaging Report ---
Indication:Abdominal pain Technique: Grayscale and duplex Doppler imaging of the abdomen performed. Comparison: None Findings: There are bilateral pleural effusions. The liver shows coarsened echotexture, surface nodularity. The spleen is enlarged measuring 18 cm. Liver is also enlarged measuring 17 cm. There is ascites. CBD is 3 mm. Gallstones are demonstrated. Sonographic Jin's is negative per technologist. Bilateral pleural effusions are present. The IVC is unremarkable. No hydronephrosis seen. IMPRESSION: Chronic liver disease/cirrhosis with stigmata of portal hypertension including ascites and splenomegaly. Gallstone
--- NOTE | 2018-11-02 19:29 | NUR ---
HAND-OFF: Report given to Dilia TORRES, pt in stable condition.
--- NOTE | 2018-11-02 19:53 | NUR ---
NURSE NOTES: Received report from Concetta Coyle
[2018-11-02 20:00] VITALS: BP 136/64
[2018-11-02] MEDS ORDERED: Tubing IV Secondary IV ONE (20:18)
[2018-11-02] MEDS ORDERED: NS 275ml ONE (20:18)
[2018-11-02] MEDS: Tamsulosin 0.4mg cap ORAL SCH (21:37)
[2018-11-02] MEDS: Epoetin Alfa(ESRD on dialysis)10,000 unit/ml vial SUBQ SCH (21:37)
--- NOTE | 2018-11-02 21:43 | Diagnostic Imaging Report ---
APPROVED REPORT CPT Code: 61588 Present Symptoms Lower Extremity Edema: RIGHT LEG: Imaging reveals a patent deep venous system. There is no evidence of thrombus within the common femoral, proximal superficial femoral, popliteal or tibial segments. The greater saphenous veins are also within normal limits. Doppler indicates normal spontaneous flow within these segments.
--- NOTE | 2018-11-02 22:07 | NUR ---
NURSE NOTES: Patient is in bed, aa0x4, talkative. No signs of distress, VSS, no pain noted. Porticath intact, due meds given, needs attended to. Bed low, call light within reach.
--- NOTE | 2018-11-02 23:00 | Consultation ---
DATE OF CONSULTATION: 11/02/2018 CARDIOLOGY CONSULTATION CONSULTING PHYSICIAN: John Linton M.D. REFERRING PHYSICIAN: Allison Mcpherson M.D. REASON FOR CONSULTATION: Bradycardia in the patient with history of hypertension. HISTORY OF PRESENT ILLNESS: The patient is a 63-year-old gentleman with history of alcoholic cirrhosis, who was admitted on 10/27/2018 for altered mental status. The patient also is on hemodialysis via right chest PermCath. It was noted that the patient's dialysis line was malpositioned and had a new line placement on 10/29/2018. Because of severe anemia, the patient had an EGD on 10/30/2018 that showed cirrhotic gastropathy. The patient also had leukopenia as well as thrombocytopenia and bradycardia and a Cardiology consultation was obtained for further evaluation. REVIEW OF SYSTEMS: Review of systems was negative other than what was mentioned in the history of present illness. PAST MEDICAL HISTORY: As mentioned above as well as the left below-knee amputation for gas gangrene and diabetes. ALLERGIES: He has no known drug allergies. MEDICATIONS: Per reconciliation. SOCIAL HISTORY: He is . No children. Quit alcohol 20 years ago. Denies smoking, drinking, or using any drugs. PHYSICAL EXAMINATION: VITAL SIGNS: Blood pressure 120/60, pulse 57, respirations 18, and temperature 98.3. HEAD AND NECK: Showed no JVD. LUNGS: Decreased breath sounds. CARDIOVASCULAR: Shows regular S1 and S2 with no gallop. ABDOMEN: Soft. Dialysis access in the right chest. EXTREMITIES: Status post left below-knee amputation with prosthesis. LABORATORY DATA: His labs show white count as low as 1.9, today is 6.4, hemoglobin 9.2, hematocrit of 27, and platelet count of 59,000. Sodium 137, potassium 3.5, BUN of 32, creatinine of 4.7, and glucose of 182. INR is 1.5. ASSESSMENT AND PLAN: 1. Bradycardia. This is likely due to the patient's cirrhosis of the liver. The bradycardia is not critical and heart rate is in the 50s. The patient is off any sinus-timo or AV-timo blocking agent. 2. Hypertension. Procardia XL 60 mg daily and hydralazine 25 mg every six hours as well as . 3. End-stage renal disease, on hemodialysis. 4. Hypertension. The patient is also on clonidine 0.1 mg every eight hours. 5. Cirrhosis of the liver and encephalopathy, on lactulose. 6. Anemia and thrombocytopenia. Further evaluation by Dr. Hammond. Thank you very much for allowing me to participate in the care of this patient. Please do not hesitate to contact me for any questions regarding my evaluation. John Linton M.D. DR: ALYSSA JOB#: [id number] CC:
[2018-11-03] VITALS: BP 147/64
[2018-11-03] MEDS: HydrALAZINE 25mg tab ORAL SCH ×4 (02:01→18:00)
[2018-11-03 04:00] VITALS: BP 121/55
[2018-11-03] MEDS: Calcium Acetate 667mg Tab ORAL SCH ×3 (06:09→16:58)
[2018-11-03] MEDS: NovoLOG Insulin Flexpen SUBQ SCH ×4 (06:11→22:06)
--- NOTE | 2018-11-03 07:55 | NUR ---
HAND-OFF: Report given to MELISSA Coyle. Patient stable.
[2018-11-03 07:59] LABS: HEMATOCRIT 26.4 % (42.0-52.0); HEMOGLOBIN 8.7 G/DL (14.2-18.0); MEAN CORPUSCULAR VOLUME 93 FL (80-99); PLATELET COUNT 61 K/UL (150-450); RED BLOOD COUNT 2.85 M/UL (4.70-6.10); WHITE BLOOD COUNT 7.2 K/UL (4.8-10.8)
[2018-11-03 08:00] VITALS: BP 146/67
--- NOTE | 2018-11-03 08:11 | NUR ---
NURSE NOTES: received report from Dilia TORRES, pt a/a/o x4 laying in bed with no signs of distress or other issues at this time. IV on the left AC gauge #22 heplock. call light within reach, bed in lowest position, side rales up x2. plan: HD today. I will f/u as needed.
[2018-11-03 08:52] LABS: ALANINE AMINOTRANSFERASE 10 U/L (12-78); ALBUMIN 1.6 G/DL (3.4-5.0); ALBUMIN/GLOBULIN RATIO 0.4 (1.0-2.7); ALKALINE PHOSPHATASE 122 U/L (46-116); ANION GAP 8 mmol/L (5-15); ASPARTATE AMINO TRANSFERASE 17 U/L (15-37); BILIRUBIN,TOTAL 0.4 MG/DL (0.2-1.0); BLOOD UREA NITROGEN 40 mg/dL (7-18); CALCIUM 7.5 MG/DL (8.5-10.1); CARBON DIOXIDE 23 MMOL/L (21-32); CHLORIDE 104 MMOL/L (98-107); CREATININE 5.5 MG/DL (0.55-1.30); POTASSIUM 3.8 MMOL/L (3.5-5.1); SODIUM 135 MMOL/L (136-145)
[2018-11-03] MEDS: Lactulose 20gm/30ml UDC ORAL SCH ×3 (09:27→18:00)
--- NOTE | 2018-11-03 11:44 | Infectious Diseases Prog Note ---
Assessment/Plan Assessment/Plan IMPRESSION: 1. Pancytopenia improving 2. Alcoholic cirrhosis. 3. End-stage renal disease, on hemodialysis. 4. Diabetes mellitus. 5. Hypertension. 6. Right-sided pleural effusion. 7. Portal hypertension. . RECOMMENDATIONS: 1. Observe off antibiotics. Subjective ROS Limited/Unobtainable: No Constitutional: Reports: no symptoms Respiratory: Reports: no symptoms Gastrointestinal/Abdominal: Reports: diarrhea Genitourinary: Reports: no symptoms Allergies: Coded Allergies: No Known Allergies (Unverified , 10/27/18) Objective Vital Signs Last 24 Hour Vital Signs Date Time Temp Pulse Resp B/P (MAP) Pulse Ox O2 Delivery O2 Flow Rate FiO2 11/03/18 09:28 64 146/67 11/03/18 09:00 Room Air 11/03/18 08:00 97.4 64 17 146/67 (93) 100 11/03/18 06:09 147/69 11/03/18 06:00 147/69 11/03/18 04:00 98.0 68 18 121/55 (77) 96 11/03/18 02:01 147/64 11/03/18 00:00 98.6 71 18 147/64 (91) 100 11/02/18 22:16 136/64 11/02/18 21:00 Room Air 11/02/18 20:00 98.7 66 18 136/64 (88) 95 11/02/18 17:39 153/71 11/02/18 16:00 98.0 63 18 153/71 (98) 100 11/02/18 14:57 153/75 11/02/18 12:45 130/60 11/02/18 12:00 98.3 60 20 120/60 (80) 99 Height (Feet): 6 Height (Inches): 6.00 Weight (Pounds): 216 General Appearance: no acute distress HEENT: mucous membranes moist Respiratory/Chest: lungs clear Cardiovascular: normal rate Abdomen: soft, non tender Extremities: no edema, other - left BKA Neurologic/Psychiatric: alert, oriented x 3, responsive Laboratory Tests Test 11/03/18 07:14 White Blood Count 7.2 K/UL (4.8-10.8) Red Blood Count 2.85 M/UL (4.70-6.10) L Hemoglobin 8.7 G/DL (14.2-18.0) L Hematocrit 26.4 % (42.0-52.0) L Mean Corpuscular Volume 93 FL (80-99) Mean Corpuscular Hemoglobin 30.5 PG (27.0-31.0) Mean Corpuscular Hemoglobin Concent 32.9 G/DL (32.0-36.0) Red Cell Distribution Width 14.0 % (11.6-14.8) Platelet Count 61 K/UL (150-450) L Mean Platelet Volume 8.2 FL (6.5-10.1) Neutrophils (%) (Auto) % (45.0-75.0) Lymphocytes (%) (Auto) % (20.0-45.0) Monocytes (%) (Auto) % (1.0-10.0) Eosinophils (%) (Auto) % (0.0-3.0) Basophils (%) (Auto) % (0.0-2.0) Differential Total Cells Counted 100 Neutrophils % (Manual) 80 % (45-75) H Lymphocytes % (Manual) 6 % (20-45) L Monocytes % (Manual) 8 % (1-10) Eosinophils % (Manual) 3 % (0-3) Basophils % (Manual) 0 % (0-2) Band Neutrophils 3 % (0-8) Platelet Estimate Decreased L Platelet Morphology Normal Anisocytosis 1+ Sodium Level 135 MMOL/L (136-145) L Potassium Level 3.8 MMOL/L (3.5-5.1) Chloride Level 104 MMOL/L (98-107) Carbon Dioxide Level 23 MMOL/L (21-32) Anion Gap 8 mmol/L (5-15) Blood Urea Nitrogen 40 mg/dL (7-18) H Creatinine 5.5 MG/DL (0.55-1.30) H Estimat Glomerular Filtration Rate 10.6 mL/min (>60) Glucose Level 201 MG/DL (74-106) H Calcium Level 7.5 MG/DL (8.5-10.1) L Total Bilirubin 0.4 MG/DL (0.2-1.0) Aspartate Amino Transf (AST/SGOT) 17 U/L (15-37) Alanine Aminotransferase (ALT/SGPT) 10 U/L (12-78) L Alkaline Phosphatase 122 U/L (46-116) H Troponin I 0.025 ng/mL (0.000-0.056) Total Protein 5.2 G/DL (6.4-8.2) L Albumin 1.6 G/DL (3.4-5.0) L Globulin 3.6 g/dL Albumin/Globulin Ratio 0.4 (1.0-2.7) L Current Medications Medications (Trade) Dose Ordered Sig/Elsa Route PRN Reason Start Time Stop Time Status Last Admin Dose Admin Acetaminophen (Tylenol) 650 mg Q4H PRN ORAL Mild Pain/Temp > 100.5 10/27/18 16:00 11/26/18 15:59 Calcium Acetate (Phoslo) 1,334 mg TIAC ORAL 10/28/18 16:30 11/27/18 06:29 11/03/18 06:09 Clonidine HCl (Catapres Tab) 0.1 mg Q8HR ORAL 11/02/18 14:00 11/26/18 21:59 11/03/18 06:09 Dextrose (Dextrose 50%) 25 ml Q30M PRN IV Hypoglycemia 10/27/18 18:15 11/26/18 18:14 Dextrose (Dextrose 50%) 50 ml Q30M PRN IV Hypoglycemia 10/27/18 18:15 11/26/18 18:14 Epoetin Jesse (Epoetin Jesse(ESRD on dialysis)) 10,000 unit FRI-FRI-FRI SUBQ 10/28/18 21:00 11/27/18 20:59 11/02/18 21:37 Hydralazine HCl (Apresoline) 25 mg EVERY 6 HOURS ORAL 10/27/18 18:00 11/26/18 17:59 11/03/18 02:01 Insulin Aspart (NovoLOG) BEFORE MEALS AND HS SUBQ 10/27/18 21:00 11/26/18 20:59 11/03/18 06:11 Lactulose (Cephulac) 20 gm THREE TIMES A DAY ORAL 11/01/18 13:00 11/26/18 17:59 11/03/18 09:27 Nifedipine (Procardia XL) 60 mg DAILY ORAL 10/28/18 09:00 11/27/18 08:59 11/03/18 09:28 Pantoprazole (Protonix) 40 mg DAILY ORAL 11/01/18 09:00 11/26/18 20:59 11/03/18 09:27 Rifaximin (Xifaxan) 550 mg EVERY 12 HOURS ORAL 10/28/18 21:00 11/04/18 20:59 11/03/18 09:27 Tamsulosin HCl (Flomax) 0.4 mg BEDTIME ORAL 10/27/18 21:00 11/26/18 20:59 11/02/18 21:37 Wicho Wagner MD Nov 03, 2018 11:44
[2018-11-03 12:00] VITALS: BP 135/66
--- NOTE | 2018-11-03 12:55 | GI Progress Note ---
Assessment/Plan Problems: (1) Hepatic encephalopathy ICD Codes: K72.90 - Hepatic failure, unspecified without coma SNOMED: 86455907 (2) Fluid overload ICD Codes: E87.70 - Fluid overload, unspecified SNOMED: 69933886 (3) Pancytopenia ICD Codes: D61.818 - Other pancytopenia SNOMED: 919467536 (4) Hypertensive kidney disease ICD Codes: I12.9 - Hypertensive chronic kidney disease with stage 1 through stage 4 chronic kidney disease, or unspecified chronic kidney disease SNOMED: 21974789 (5) Diabetic nephropathy ICD Codes: E11.21 - Type 2 diabetes mellitus with diabetic nephropathy SNOMED: 143965052 (6) ESRD (end stage renal disease) ICD Codes: N18.6 - End stage renal disease SNOMED: 70046897 (7) Altered level of consciousness ICD Codes: R40.4 - Transient alteration of awareness SNOMED: 0893106 Status: doing well, stable Status Narrative Discussed with Dr. Mendoza Assessment/Plan SUMMARY OF FINDINGS: 1. Minimal distal esophagitis. 2. Portal hypertensive gastropathy. 3. Duodenitis. RECOMMENDATIONS: Lactulose plus Xifaxan Treat for cirrhosis. Avoid alcohol. Follow labs. Follow biopsy results. Discharge planning per primary team. Needs outpatient followup. The patient was seen and examined at bedside and all new and available data was reviewed in the patients chart. I agree with the above findings, impression and plan. (Patient seen earlier today. Signature stamp does not reflect patient encounter time.). - Karan Mendoza MD Subjective Gastrointestinal/Abdominal: Reports: no symptoms Objective Last 24 Hour Vital Signs Date Time Temp Pulse Resp B/P (MAP) Pulse Ox O2 Delivery O2 Flow Rate FiO2 11/03/18 12:00 97.4 75 18 135/66 (89) 98 11/03/18 09:28 64 146/67 11/03/18 09:00 Room Air 11/03/18 08:00 97.4 64 17 146/67 (93) 100 11/03/18 06:09 147/69 11/03/18 06:00 147/69 11/03/18 04:00 98.0 68 18 121/55 (77) 96 11/03/18 02:01 147/64 11/03/18 00:00 98.6 71 18 147/64 (91) 100 11/02/18 22:16 136/64 11/02/18 21:00 Room Air 11/02/18 20:00 98.7 66 18 136/64 (88) 95 11/02/18 17:39 153/71 11/02/18 16:00 98.0 63 18 153/71 (98) 100 11/02/18 14:57 153/75 Intake and Output 11/02/18 11/03/18 19:00 07:00 Intake Total 590 ml Balance 590 ml Intake Oral 590 ml # Voids 5 # Bowel Movements 4 Laboratory Tests Test 11/03/18 07:14 White Blood Count 7.2 K/UL (4.8-10.8) Red Blood Count 2.85 M/UL (4.70-6.10) L Hemoglobin 8.7 G/DL (14.2-18.0) L Hematocrit 26.4 % (42.0-52.0) L Mean Corpuscular Volume 93 FL (80-99) Mean Corpuscular Hemoglobin 30.5 PG (27.0-31.0) Mean Corpuscular Hemoglobin Concent 32.9 G/DL (32.0-36.0) Red Cell Distribution Width 14.0 % (11.6-14.8) Platelet Count 61 K/UL (150-450) L Mean Platelet Volume 8.2 FL (6.5-10.1) Neutrophils (%) (Auto) % (45.0-75.0) Lymphocytes (%) (Auto) % (20.0-45.0) Monocytes (%) (Auto) % (1.0-10.0) Eosinophils (%) (Auto) % (0.0-3.0) Basophils (%) (Auto) % (0.0-2.0) Differential Total Cells Counted 100 Neutrophils % (Manual) 80 % (45-75) H Lymphocytes % (Manual) 6 % (20-45) L Monocytes % (Manual) 8 % (1-10) Eosinophils % (Manual) 3 % (0-3) Basophils % (Manual) 0 % (0-2) Band Neutrophils 3 % (0-8) Platelet Estimate Decreased L Platelet Morphology Normal Anisocytosis 1+ Sodium Level 135 MMOL/L (136-145) L Potassium Level 3.8 MMOL/L (3.5-5.1) Chloride Level 104 MMOL/L (98-107) Carbon Dioxide Level 23 MMOL/L (21-32) Anion Gap 8 mmol/L (5-15) Blood Urea Nitrogen 40 mg/dL (7-18) H Creatinine 5.5 MG/DL (0.55-1.30) H Estimat Glomerular Filtration Rate 10.6 mL/min (>60) Glucose Level 201 MG/DL (74-106) H Calcium Level 7.5 MG/DL (8.5-10.1) L Total Bilirubin 0.4 MG/DL (0.2-1.0) Aspartate Amino Transf (AST/SGOT) 17 U/L (15-37) Alanine Aminotransferase (ALT/SGPT) 10 U/L (12-78) L Alkaline Phosphatase 122 U/L (46-116) H Troponin I 0.025 ng/mL (0.000-0.056) Total Protein 5.2 G/DL (6.4-8.2) L Albumin 1.6 G/DL (3.4-5.0) L Globulin 3.6 g/dL Albumin/Globulin Ratio 0.4 (1.0-2.7) L Height (Feet): 6 Height (Inches): 6.00 Weight (Pounds): 216 General Appearance: WD/WN, no apparent distress, alert Cardiovascular: normal rate Respiratory/Chest: normal breath sounds, no respiratory distress Abdominal Exam: normal bowel sounds, non tender, soft Extremities: normal range of motion, non-tender Kadeem Saucedo NP Nov 03, 2018 12:55
--- NOTE | 2018-11-03 13:00 | NUR ---
NURSE NOTES: RN called [facility] center at [phone]) s/w Karla, she stated that she has 3 urgent cases so she will have to postpone Mr. Richardson until 17:00 or so. RN notified patient and family. I will follow up as needed.
[2018-11-03 16:00] VITALS: BP 142/62
--- NOTE | 2018-11-03 16:40 | Cardiac Electrophysiology PN ---
Assessment/Plan Assessment/Plan 1. Bradycardia. This is likely due to the patient's cirrhosis of the liver. The bradycardia is not critical and heart rate is in the 50s. The patient is off any sinus-timo or AV-timo blocking agent. 2. Hypertension. Procardia XL 60 mg daily,clonidine 0.1 mg every eight hours, hydralazine 25 mg every six hours and HD 3. End-stage renal disease, on hemodialysis. 4. Cirrhosis of the liver and encephalopathy, on lactulose. 5. Anemia and thrombocytopenia. Further evaluation by Dr. Hammond. Subjective Subjective Awaiting HD. No CP Objective Last 24 Hour Vital Signs Date Time Temp Pulse Resp B/P (MAP) Pulse Ox O2 Delivery O2 Flow Rate FiO2 11/03/18 12:00 97.4 75 18 135/66 (89) 98 11/03/18 09:28 64 146/67 11/03/18 09:00 Room Air 11/03/18 08:00 97.4 64 17 146/67 (93) 100 11/03/18 06:09 147/69 11/03/18 06:00 147/69 11/03/18 04:00 98.0 68 18 121/55 (77) 96 11/03/18 02:01 147/64 11/03/18 00:00 98.6 71 18 147/64 (91) 100 11/02/18 22:16 136/64 11/02/18 21:00 Room Air 11/02/18 20:00 98.7 66 18 136/64 (88) 95 11/02/18 17:39 153/71 Intake and Output 11/02/18 11/03/18 19:00 07:00 Intake Total 590 ml Balance 590 ml Intake Oral 590 ml # Voids 5 # Bowel Movements 4 Laboratory Tests Test 11/03/18 07:14 White Blood Count 7.2 K/UL (4.8-10.8) Red Blood Count 2.85 M/UL (4.70-6.10) L Hemoglobin 8.7 G/DL (14.2-18.0) L Hematocrit 26.4 % (42.0-52.0) L Mean Corpuscular Volume 93 FL (80-99) Mean Corpuscular Hemoglobin 30.5 PG (27.0-31.0) Mean Corpuscular Hemoglobin Concent 32.9 G/DL (32.0-36.0) Red Cell Distribution Width 14.0 % (11.6-14.8) Platelet Count 61 K/UL (150-450) L Mean Platelet Volume 8.2 FL (6.5-10.1) Neutrophils (%) (Auto) % (45.0-75.0) Lymphocytes (%) (Auto) % (20.0-45.0) Monocytes (%) (Auto) % (1.0-10.0) Eosinophils (%) (Auto) % (0.0-3.0) Basophils (%) (Auto) % (0.0-2.0) Differential Total Cells Counted 100 Neutrophils % (Manual) 80 % (45-75) H Lymphocytes % (Manual) 6 % (20-45) L Monocytes % (Manual) 8 % (1-10) Eosinophils % (Manual) 3 % (0-3) Basophils % (Manual) 0 % (0-2) Band Neutrophils 3 % (0-8) Platelet Estimate Decreased L Platelet Morphology Normal Anisocytosis 1+ Sodium Level 135 MMOL/L (136-145) L Potassium Level 3.8 MMOL/L (3.5-5.1) Chloride Level 104 MMOL/L (98-107) Carbon Dioxide Level 23 MMOL/L (21-32) Anion Gap 8 mmol/L (5-15) Blood Urea Nitrogen 40 mg/dL (7-18) H Creatinine 5.5 MG/DL (0.55-1.30) H Estimat Glomerular Filtration Rate 10.6 mL/min (>60) Glucose Level 201 MG/DL (74-106) H Calcium Level 7.5 MG/DL (8.5-10.1) L Total Bilirubin 0.4 MG/DL (0.2-1.0) Aspartate Amino Transf (AST/SGOT) 17 U/L (15-37) Alanine Aminotransferase (ALT/SGPT) 10 U/L (12-78) L Alkaline Phosphatase 122 U/L (46-116) H Troponin I 0.025 ng/mL (0.000-0.056) Total Protein 5.2 G/DL (6.4-8.2) L Albumin 1.6 G/DL (3.4-5.0) L Globulin 3.6 g/dL Albumin/Globulin Ratio 0.4 (1.0-2.7) L Objective HEAD AND NECK: Showed no JVD. LUNGS: Decreased breath sounds. CARDIOVASCULAR: Shows regular S1 and S2 with no gallop. ABDOMEN: Soft. Dialysis access in the right chest. EXTREMITIES: Status post left below-knee amputation with prosthesis. John Linton MD Nov 03, 2018 16:40
--- NOTE | 2018-11-03 16:42 | Nephrology Progress Note ---
Assessment/Plan Problem List: (1) Hepatic encephalopathy (2) ESRD (end stage renal disease) (3) Hypertensive kidney disease (4) Diabetic nephropathy Assessment ESRD right permacath Hepatic Encephalopathy Anemia of CKD DM HTN Plan Right Permacath not in proper position- HD next 11/03 lactulose Renal diet phos binders EPO BP meds adjustment per orders ? Dc planning Subjective ROS Limited/Unobtainable: No Constitutional: Reports: malaise Objective Objective Last 24 Hour Vital Signs Date Time Temp Pulse Resp B/P (MAP) Pulse Ox O2 Delivery O2 Flow Rate FiO2 11/03/18 12:00 97.4 75 18 135/66 (89) 98 11/03/18 09:28 64 146/67 11/03/18 09:00 Room Air 11/03/18 08:00 97.4 64 17 146/67 (93) 100 11/03/18 06:09 147/69 11/03/18 06:00 147/69 11/03/18 04:00 98.0 68 18 121/55 (77) 96 11/03/18 02:01 147/64 11/03/18 00:00 98.6 71 18 147/64 (91) 100 11/02/18 22:16 136/64 11/02/18 21:00 Room Air 11/02/18 20:00 98.7 66 18 136/64 (88) 95 11/02/18 17:39 153/71 Intake and Output 11/02/18 11/03/18 19:00 07:00 Intake Total 590 ml Balance 590 ml Intake Oral 590 ml # Voids 5 # Bowel Movements 4 Laboratory Tests 11/03/18 07:14: White Blood Count 7.2, Red Blood Count 2.85L, Hemoglobin 8.7L, Hematocrit 26.4L , Mean Corpuscular Volume 93, Mean Corpuscular Hemoglobin 30.5, Mean Corpuscular Hemoglobin Concent 32.9, Red Cell Distribution Width 14.0, Platelet Count 61L, Mean Platelet Volume 8.2, Neutrophils (%) (Auto) , Lymphocytes (%) ( Auto) , Monocytes (%) (Auto) , Eosinophils (%) (Auto) , Basophils (%) (Auto) , Differential Total Cells Counted 100, Neutrophils % (Manual) 80H, Lymphocytes % (Manual) 6L, Monocytes % (Manual) 8, Eosinophils % (Manual) 3, Basophils % ( Manual) 0, Band Neutrophils 3, Platelet Estimate DecreasedL, Platelet Morphology Normal, Anisocytosis 1+, Sodium Level 135L, Potassium Level 3.8, Chloride Level 104, Carbon Dioxide Level 23, Anion Gap 8, Blood Urea Nitrogen 40H, Creatinine 5.5H, Estimat Glomerular Filtration Rate 10.6, Glucose Level 201H, Calcium Level 7.5L, Total Bilirubin 0.4, Aspartate Amino Transf (AST/SGOT ) 17, Alanine Aminotransferase (ALT/SGPT) 10L, Alkaline Phosphatase 122H, Troponin I 0.025, Total Protein 5.2L, Albumin 1.6L, Globulin 3.6, Albumin/ Globulin Ratio 0.4L Height (Feet): 6 Height (Inches): 6.00 Weight (Pounds): 216 General Appearance: no apparent distress Objective no change Bob Hogan MD Nov 03, 2018 16:42
--- NOTE | 2018-11-03 17:00 | NUR ---
NURSE NOTES: RN held BP meds due to scheduled HD today. Dr. Mchperson is aware and agreed. I will f/u as needed.
--- NOTE | 2018-11-03 17:10 | General Progress Note ---
Assessment/Plan Problem List: (1) Hepatic encephalopathy ICD Codes: K72.90 - Hepatic failure, unspecified without coma SNOMED: 27392879 (2) ESRD (end stage renal disease) ICD Codes: N18.6 - End stage renal disease SNOMED: 04749059 (3) Hypertensive kidney disease ICD Codes: I12.9 - Hypertensive chronic kidney disease with stage 1 through stage 4 chronic kidney disease, or unspecified chronic kidney disease SNOMED: 52389893 (4) Diabetic nephropathy ICD Codes: E11.21 - Type 2 diabetes mellitus with diabetic nephropathy SNOMED: 072096950 (5) Fluid overload ICD Codes: E87.70 - Fluid overload, unspecified SNOMED: 48252250 (6) Pancytopenia ICD Codes: D61.818 - Other pancytopenia SNOMED: 035734886 (7) Altered level of consciousness ICD Codes: R40.4 - Transient alteration of awareness SNOMED: 1975144 Status: progressing Assessment/Plan cirhosis no bleeding reviewed chart and meds severe pancytopenia due to etoh afebrile esrd on hd endoscopy done and show gastritis Subjective ROS Limited/Unobtainable: Yes Allergies: Coded Allergies: No Known Allergies (Unverified , 10/27/18) Objective Last 24 Hour Vital Signs Date Time Temp Pulse Resp B/P (MAP) Pulse Ox O2 Delivery O2 Flow Rate FiO2 11/03/18 12:00 97.4 75 18 135/66 (89) 98 11/03/18 09:28 64 146/67 11/03/18 09:00 Room Air 11/03/18 08:00 97.4 64 17 146/67 (93) 100 11/03/18 06:09 147/69 11/03/18 06:00 147/69 11/03/18 04:00 98.0 68 18 121/55 (77) 96 11/03/18 02:01 147/64 11/03/18 00:00 98.6 71 18 147/64 (91) 100 11/02/18 22:16 136/64 11/02/18 21:00 Room Air 11/02/18 20:00 98.7 66 18 136/64 (88) 95 11/02/18 17:39 153/71 Intake and Output 11/02/18 11/03/18 19:00 07:00 Intake Total 590 ml Balance 590 ml Intake Oral 590 ml # Voids 5 # Bowel Movements 4 Laboratory Tests 11/03/18 07:14: White Blood Count 7.2, Red Blood Count 2.85L, Hemoglobin 8.7L, Hematocrit 26.4L , Mean Corpuscular Volume 93, Mean Corpuscular Hemoglobin 30.5, Mean Corpuscular Hemoglobin Concent 32.9, Red Cell Distribution Width 14.0, Platelet Count 61L, Mean Platelet Volume 8.2, Neutrophils (%) (Auto) , Lymphocytes (%) ( Auto) , Monocytes (%) (Auto) , Eosinophils (%) (Auto) , Basophils (%) (Auto) , Differential Total Cells Counted 100, Neutrophils % (Manual) 80H, Lymphocytes % (Manual) 6L, Monocytes % (Manual) 8, Eosinophils % (Manual) 3, Basophils % ( Manual) 0, Band Neutrophils 3, Platelet Estimate DecreasedL, Platelet Morphology Normal, Anisocytosis 1+, Sodium Level 135L, Potassium Level 3.8, Chloride Level 104, Carbon Dioxide Level 23, Anion Gap 8, Blood Urea Nitrogen 40H, Creatinine 5.5H, Estimat Glomerular Filtration Rate 10.6, Glucose Level 201H, Calcium Level 7.5L, Total Bilirubin 0.4, Aspartate Amino Transf (AST/SGOT ) 17, Alanine Aminotransferase (ALT/SGPT) 10L, Alkaline Phosphatase 122H, Troponin I 0.025, Total Protein 5.2L, Albumin 1.6L, Globulin 3.6, Albumin/ Globulin Ratio 0.4L Height (Feet): 6 Height (Inches): 6.00 Weight (Pounds): 216 Neck: supple Cardiovascular: normal rate Abdomen: soft Allison Mcpherson MD Nov 03, 2018 17:10
--- NOTE | 2018-11-03 18:26 | NUR ---
NURSE NOTES: Per Dr. Mcpherson, ordered single point cane. called [facility] to request SPC and delivered to patients room. I will f/u as needed.
--- NOTE | 2018-11-03 19:29 | NUR ---
HAND-OFF: Report given to Shamir Busby pt in stable condition.
--- NOTE | 2018-11-03 19:30 | NUR ---
NURSE NOTES: Received report from MELISSA Vargas. Received pt lying in bed, AOX4, denies any pain, no distress noted. Hemodialysis nurse at bedside to start dialysis. Bed in lowest position and locked, side rails up x 2, call light within reach. Will continue to monitor.
[2018-11-03 20:00] VITALS: BP 147/64
--- NOTE | 2018-11-03 21:44 | General Progress Note ---
Assessment/Plan Assessment/Plan Assessment and Recs: # Pancytopenia -- multiple etiologies could be related to underlying liver disease, medication-induced, infection versus viral syndrome --> peripheral smear has been ordered and does not show significant abnormlaities --> Continue to monitor for improvement --> Hep panel and HIV have been reviewed --> US abd ordered to r/o cirrhosis and hepatosplenomegaly --> Give neupogen if ANC <1000 (given 11/01/18) --> Transfuse if hgb <7, with 1 unit prbc # Anemia due to underlying kidney disease --> anemia panel reviewed and consistent with acd --> panel reviewed, ferritin 247 # ESRD (end stage renal disease) --> has a right permacath --> appreciate renal recs # Hepatic encephalopathy --> Continue lactulose, will add Xifaxan --> as per gi recs # Fluid overload # DM # HTN The timing of this note does not necessarily reflect the time of the patient was seen Greatly appreciate consultation! Subjective Allergies: Coded Allergies: No Known Allergies (Unverified , 10/27/18) Subjective 11/02: seen by bedside, no wheezing, afebrile, endoscopy done and show gastritis , plt remains low at 59. 11/03:HD today, wbc trending up and normal, plt and hgb remains low, no events Objective Last 24 Hour Vital Signs Date Time Temp Pulse Resp B/P (MAP) Pulse Ox O2 Delivery O2 Flow Rate FiO2 11/03/18 17:54 Room Air 11/03/18 16:00 98.3 87 18 142/62 (88) 100 11/03/18 12:00 97.4 75 18 135/66 (89) 98 11/03/18 09:28 64 146/67 11/03/18 09:00 Room Air 11/03/18 08:00 97.4 64 17 146/67 (93) 100 11/03/18 06:09 147/69 11/03/18 06:00 147/69 11/03/18 04:00 98.0 68 18 121/55 (77) 96 11/03/18 02:01 147/64 11/03/18 00:00 98.6 71 18 147/64 (91) 100 11/02/18 22:16 136/64 Intake and Output 11/02/18 11/03/18 19:00 07:00 Intake Total 590 ml Balance 590 ml Intake Oral 590 ml # Voids 5 # Bowel Movements 4 Laboratory Tests 11/03/18 07:14: White Blood Count 7.2, Red Blood Count 2.85L, Hemoglobin 8.7L, Hematocrit 26.4L , Mean Corpuscular Volume 93, Mean Corpuscular Hemoglobin 30.5, Mean Corpuscular Hemoglobin Concent 32.9, Red Cell Distribution Width 14.0, Platelet Count 61L, Mean Platelet Volume 8.2, Neutrophils (%) (Auto) , Lymphocytes (%) ( Auto) , Monocytes (%) (Auto) , Eosinophils (%) (Auto) , Basophils (%) (Auto) , Differential Total Cells Counted 100, Neutrophils % (Manual) 80H, Lymphocytes % (Manual) 6L, Monocytes % (Manual) 8, Eosinophils % (Manual) 3, Basophils % ( Manual) 0, Band Neutrophils 3, Platelet Estimate DecreasedL, Platelet Morphology Normal, Anisocytosis 1+, Sodium Level 135L, Potassium Level 3.8, Chloride Level 104, Carbon Dioxide Level 23, Anion Gap 8, Blood Urea Nitrogen 40H, Creatinine 5.5H, Estimat Glomerular Filtration Rate 10.6, Glucose Level 201H, Calcium Level 7.5L, Total Bilirubin 0.4, Aspartate Amino Transf (AST/SGOT ) 17, Alanine Aminotransferase (ALT/SGPT) 10L, Alkaline Phosphatase 122H, Troponin I 0.025, Total Protein 5.2L, Albumin 1.6L, Globulin 3.6, Albumin/ Globulin Ratio 0.4L Height (Feet): 6 Height (Inches): 6.00 Weight (Pounds): 216 Objective General Appearance: well appearing Respiratory: normal breath sounds, no respiratory distress Cardiovascular: normal rate Gastrointestinal: normal inspection, non tender, soft, normal bowel sounds, non -distended, +Abdominal hernia Genitourinary: deferred Musculoskeletal: normal inspection, back normal William Hammond MD Nov 03, 2018 21:43
[2018-11-03] MEDS: Tamsulosin 0.4mg cap ORAL SCH (22:02)
[2018-11-04] VITALS: BP 132/61
--- NOTE | 2018-11-04 01:30 | NUR ---
NURSE NOTES: Dialysis completed 2 liters output. Pt in stable condition, no distress noted. B/P 140/60. Will continue to monitor.
[2018-11-04 04:00] VITALS: BP 126/58
[2018-11-04] MEDS: HydrALAZINE 25mg tab ORAL SCH ×2 (05:07)
[2018-11-04] MEDS: Calcium Acetate 667mg Tab ORAL SCH (06:09)
[2018-11-04] MEDS: NovoLOG Insulin Flexpen SUBQ SCH (06:11)
[2018-11-04 06:35] LABS: HEMATOCRIT 27.1 % (42.0-52.0); HEMOGLOBIN 9.2 G/DL (14.2-18.0); MEAN CORPUSCULAR VOLUME 92 FL (80-99); PLATELET COUNT 61 K/UL (150-450); RED BLOOD COUNT 2.94 M/UL (4.70-6.10); WHITE BLOOD COUNT 6.1 K/UL (4.8-10.8)
--- NOTE | 2018-11-04 07:06 | NUR ---
HAND-OFF: Report given to MELISSA Cool. Pt in stable condition.
[2018-11-04 07:07] LABS: ANION GAP 6 mmol/L (5-15); BLOOD UREA NITROGEN 32 mg/dL (7-18); CALCIUM 7.9 MG/DL (8.5-10.1); CARBON DIOXIDE 28 MMOL/L (21-32); CHLORIDE 101 MMOL/L (98-107); CREATININE 4.4 MG/DL (0.55-1.30); POTASSIUM 3.4 MMOL/L (3.5-5.1); SODIUM 134 MMOL/L (136-145)
[2018-11-04 07:59] LABS: PHOSPHORUS 2.2 MG/DL (2.5-4.9)
[2018-11-04 08:00] VITALS: BP 139/64
--- NOTE | 2018-11-04 08:23 | NUR ---
nurse notes received patient resting comfortably in bed, patient awake, alert, oriented x4, no sign of distress, HL Patent, denies pain or discomfort, plan of care was discussed verbalized understanding , 4P;s in progress call light w/n reach, will continue to monitor patient condition philomena wilcox
[2018-11-04 08:59] VITALS: BP 139/64
[2018-11-04] MEDS: Lactulose 20gm/30ml UDC ORAL SCH (08:59)
--- NOTE | 2018-11-04 10:47 | GI Progress Note ---
Assessment/Plan Problems: (1) Hepatic encephalopathy ICD Codes: K72.90 - Hepatic failure, unspecified without coma SNOMED: 26893626 (2) Fluid overload ICD Codes: E87.70 - Fluid overload, unspecified SNOMED: 79488351 (3) Pancytopenia ICD Codes: D61.818 - Other pancytopenia SNOMED: 803618252 (4) Hypertensive kidney disease ICD Codes: I12.9 - Hypertensive chronic kidney disease with stage 1 through stage 4 chronic kidney disease, or unspecified chronic kidney disease SNOMED: 75041492 (5) Diabetic nephropathy ICD Codes: E11.21 - Type 2 diabetes mellitus with diabetic nephropathy SNOMED: 928725876 (6) ESRD (end stage renal disease) ICD Codes: N18.6 - End stage renal disease SNOMED: 94509746 (7) Altered level of consciousness ICD Codes: R40.4 - Transient alteration of awareness SNOMED: 9920830 Status: stable Status Narrative Discussed with Dr. Mendoza Assessment/Plan SUMMARY OF FINDINGS: 1. Minimal distal esophagitis. 2. Portal hypertensive gastropathy. 3. Duodenitis. RECOMMENDATIONS: Lactulose plus Xifaxan Treat for cirrhosis. Avoid alcohol. Follow labs. Follow biopsy results. Discharge planning per primary team. Needs outpatient followup. The patient was seen and examined at bedside and all new and available data was reviewed in the patients chart. I agree with the above findings, impression and plan. (Patient seen earlier today. Signature stamp does not reflect patient encounter time.). - Karan Mendoza MD Subjective Gastrointestinal/Abdominal: Reports: no symptoms Objective Last 24 Hour Vital Signs Date Time Temp Pulse Resp B/P (MAP) Pulse Ox O2 Delivery O2 Flow Rate FiO2 11/04/18 08:59 80 139/64 11/04/18 08:30 Room Air 11/04/18 08:00 97.7 80 18 139/64 (89) 99 11/04/18 06:00 126/58 11/04/18 05:07 126/58 11/04/18 04:00 98.2 79 18 126/58 (80) 96 11/04/18 00:00 132/89 11/04/18 00:00 98.3 79 19 132/61 (84) 96 11/03/18 22:00 147/64 11/03/18 21:00 Room Air 11/03/18 20:00 98.9 80 18 147/64 (91) 95 11/03/18 17:54 Room Air 11/03/18 16:00 98.3 87 18 142/62 (88) 100 11/03/18 12:00 97.4 75 18 135/66 (89) 98 Intake and Output 11/03/18 11/04/18 19:00 07:00 Intake Total 440 ml Output Total 100 ml Balance 440 ml -100 ml Intake Oral 440 ml Output Urine Total 100 ml # Voids 1 # Bowel Movements 1 Laboratory Tests Test 11/04/18 05:00 White Blood Count 6.1 K/UL (4.8-10.8) Red Blood Count 2.94 M/UL (4.70-6.10) L Hemoglobin 9.2 G/DL (14.2-18.0) L Hematocrit 27.1 % (42.0-52.0) L Mean Corpuscular Volume 92 FL (80-99) Mean Corpuscular Hemoglobin 31.2 PG (27.0-31.0) H Mean Corpuscular Hemoglobin Concent 33.9 G/DL (32.0-36.0) Red Cell Distribution Width 14.0 % (11.6-14.8) Platelet Count 61 K/UL (150-450) L Mean Platelet Volume 8.0 FL (6.5-10.1) Neutrophils (%) (Auto) % (45.0-75.0) Lymphocytes (%) (Auto) % (20.0-45.0) Monocytes (%) (Auto) % (1.0-10.0) Eosinophils (%) (Auto) % (0.0-3.0) Basophils (%) (Auto) % (0.0-2.0) Neutrophils % (Manual) Pending Lymphocytes % (Manual) Pending Platelet Estimate Pending Platelet Morphology Pending Sodium Level 134 MMOL/L (136-145) L Potassium Level 3.4 MMOL/L (3.5-5.1) L Chloride Level 101 MMOL/L (98-107) Carbon Dioxide Level 28 MMOL/L (21-32) Anion Gap 6 mmol/L (5-15) Blood Urea Nitrogen 32 mg/dL (7-18) H Creatinine 4.4 MG/DL (0.55-1.30) H Estimat Glomerular Filtration Rate 13.7 mL/min (>60) Glucose Level 334 MG/DL (74-106) #H Calcium Level 7.9 MG/DL (8.5-10.1) L Phosphorus Level 2.2 MG/DL (2.5-4.9) L Magnesium Level 1.8 MG/DL (1.8-2.4) Height (Feet): 6 Height (Inches): 6.00 Weight (Pounds): 212 General Appearance: WD/WN, no apparent distress, alert Cardiovascular: normal rate Respiratory/Chest: normal breath sounds, no respiratory distress Abdominal Exam: normal bowel sounds, non tender, soft Extremities: normal range of motion, non-tender Kadeem Saucedo NP Nov 04, 2018 10:47
--- NOTE | 2018-11-04 11:00 | NUR ---
nurse notes patient going home with right subclavian selina cath, for HD, instructed patient not to touch and always clean dry and intact philomena wilcox
--- NOTE | 2018-11-04 11:06 | NUR ---
nurse notes 1000 discharge to home obtained, patient and agreed regarding plan of care, discharge instruction packet handed to patient, discharge instruction instructed to patient and all questions answered verbalized understanding, 1106 discharged in stable condition with all belongings taken accompanied by family member wheeled by [employer] worker to the parking area, discharged via private car philomena lugo
--- NOTE | 2018-11-04 13:43 | Nephrology Progress Note ---
Assessment/Plan Problem List: (1) Hepatic encephalopathy (2) ESRD (end stage renal disease) (3) Hypertensive kidney disease (4) Diabetic nephropathy Assessment ESRD right permacath Hepatic Encephalopathy Anemia of CKD DM HTN Plan HD next 11/05 lactulose Renal diet phos binders EPO BP meds adjustment per orders ? DC planning Subjective ROS Limited/Unobtainable: No Interval Events/Complaints seen at 9 am Objective Objective Last 24 Hour Vital Signs Date Time Temp Pulse Resp B/P (MAP) Pulse Ox O2 Delivery O2 Flow Rate FiO2 11/04/18 08:59 80 139/64 11/04/18 08:30 Room Air 11/04/18 08:00 97.7 80 18 139/64 (89) 99 11/04/18 06:00 126/58 11/04/18 05:07 126/58 11/04/18 04:00 98.2 79 18 126/58 (80) 96 11/04/18 00:00 132/89 11/04/18 00:00 98.3 79 19 132/61 (84) 96 11/03/18 22:00 147/64 11/03/18 21:00 Room Air 11/03/18 20:00 98.9 80 18 147/64 (91) 95 11/03/18 17:54 Room Air 11/03/18 16:00 98.3 87 18 142/62 (88) 100 Intake and Output 11/03/18 11/04/18 19:00 07:00 Intake Total 440 ml Output Total 100 ml Balance 440 ml -100 ml Intake Oral 440 ml Output Urine Total 100 ml # Voids 1 # Bowel Movements 1 Laboratory Tests 11/04/18 05:00: White Blood Count 6.1, Red Blood Count 2.94L, Hemoglobin 9.2L, Hematocrit 27.1L , Mean Corpuscular Volume 92, Mean Corpuscular Hemoglobin 31.2H, Mean Corpuscular Hemoglobin Concent 33.9, Red Cell Distribution Width 14.0, Platelet Count 61L, Mean Platelet Volume 8.0, Neutrophils (%) (Auto) , Lymphocytes (%) ( Auto) , Monocytes (%) (Auto) , Eosinophils (%) (Auto) , Basophils (%) (Auto) , Differential Total Cells Counted 100, Neutrophils % (Manual) 84H, Lymphocytes % (Manual) 10L, Monocytes % (Manual) 5, Eosinophils % (Manual) 0, Basophils % ( Manual) 0, Band Neutrophils 1, Platelet Estimate DecreasedL, Platelet Morphology Normal, Red Blood Cell Morphology Normal, Sodium Level 134L, Potassium Level 3.4L, Chloride Level 101, Carbon Dioxide Level 28, Anion Gap 6, Blood Urea Nitrogen 32H, Creatinine 4.4H, Estimat Glomerular Filtration Rate 13.7, Glucose Level 334#H, Calcium Level 7.9L, Phosphorus Level 2.2L, Magnesium Level 1.8 Height (Feet): 6 Height (Inches): 6.00 Weight (Pounds): 212 General Appearance: no apparent distress Respiratory/Chest: lungs clear Abdomen: soft, distended Objective no change Bob Hogan MD Nov 04, 2018 13:43
--- NOTE | 2018-11-05 10:37 | Discharge Summary ---
Discharge Summary Discharge Summary _ DATE OF ADMISSION: 10/27/2018 DATE OF DISCHARGE: 11/04/2018 DISCHARGED BY: Dr. Allison Baig CONSULTANTS: Dr. Bob Wagner [facility] COURSE: Patient is a 63-year-old male, who presented to ED due to acute altered mental status. Patient apparently had not been feeling well. He was unable to get to dialysis center because of confusion. Patient was alcoholic in the past and has a history of liver cirrhosis. On evaluation at ED, blood pressure was elevated to 176/82, pulse rate 78, temperature 99, he was saturating 100% on room air. Blood work did not show any leukocytosis, hemoglobin was 8.8, hematocrit 27. He had elevated levels of ammonia to 108. Creatinine was 4.8, BUN 51, potassium of 5.0. Urinalysis showed 4+ protein, 2+ glucose, negative ketones, 2+ blood, negative nitrite, negative leukocyte esterase. He had evidence of mild fluid overload. Patient will require dialysis. He was given lactulose. He was then admitted for evaluation of altered level of consciousness, hepatic encephalopathy. He was given lactulose. Xifaxan was added. CBC was monitored. He was placed on proton pump inhibitor. [employer] was consulted. Patient was newly started on hemodialysis and was supposed to go to [facility] for hemodialysis. He came in with a permacath on the right chest. He was placed on renal diet. He was given phosphate binders. Dialysis catheter was malpositioned. On 10/29/2018, he underwent exchange of right transjugular tunneled dialysis catheter by radiology. He was given inpatient hemodialysis. On 10/30/2018, he underwent upper endoscopy with findings of distal esophagitis , portal hypertensive gastropathy and duodenitis. He was counseled against alcohol use. Venous duplex of the lower extremity was negative for acute DVT bilaterally. Echocardiogram done showed ejection fraction of 55-60%. Trace aortic regurgitation, mild to moderate mitral regurgitation, mild tricuspid regurgitation, right ventricular systolic pressure of 50 mmHg, consistent with moderate pulmonary hypertension. On 08/30/2019, there was a drop in hemoglobin to 7.6, hematocrit 23. He was given 1 unit packed RBC blood transfusion. He had thrombocytopenia. Abdominal ultrasound showed liver disease/cirrhosis with stigmata of portal hypertension, ascites and splenomegaly. Anemia was of chronic kidney disease. He was given Epogen. WBC went down to 1.59. He was given one dose of Tbo-filgrastim. Vital signs were stable. Ammonia level down trended. WBC went up to 6. Hemoglobin was stable at 9. Pathology results from EGD was negative for H. pylori. No malignancy identified. He was eventually discharged home. FINAL DIAGNOSES: Acute altered level of consciousness due to hepatic encephalopathy End-stage renal disease on hemodialysis Hypertensive kidney disease Diabetes with diabetic nephropathy Anemia of chronic kidney disease Hypertension Pancytopenia Fluid overload Status post upper GI endoscopy with biopsy on 10/30/2018 Distal esophagitis Portal hypertensive gastropathy Duodenitis Liver cirrhosis with portal hypertension Status post exchange of right transjugular tunneled dialysis catheter by radiology on 10/29/2018 DISPOSITION: Patient was discharged home. DISCHARGE MEDICATIONS: Refer to Discharge Medication List. DISCHARGE INSTRUCTIONS: Follow-up in a week. I have been assigned to complete a discharge summary on this account, I was not involved with the patient's management. Joselin Peacock NP Nov 05, 2018 10:37
== END 2018-11-04 11:10 | disposition home or self-care (01) | DRG 279 ==
LOC: EDBD 12:11 → EMR 13:30 → EDBEDREQ 15:01 → 4E 15:07 → 3E 15:23
PROC: 02PYX3Z Removal of Infusion Device from Great Vessel, External Approach (ICD-10-PCS; 2018-10-29)
PROC: 02HV33Z Insertion of Infusion Device into Superior Vena Cava, Percutaneous Approach (ICD-10-PCS; 2018-10-29)
PROC: 0DB68ZX Excision of Stomach, Via Natural or Artificial Opening Endoscopic, Diagnostic (ICD-10-PCS; 2018-10-30)
PROC: 30233N1 Transfusion of Nonautologous Red Blood Cells into Peripheral Vein, Percutaneous Approach (ICD-10-PCS; principal; 2018-10-31)
DX: K72.90 Hepatic failure, unspecified without coma (principal); D61.818 Other pancytopenia; E72.20 Disorder of urea cycle metabolism, unspecified; I12.0 Hypertensive chronic kidney disease with stage 5 chronic kidney disease or end stage renal disease; E11.22 Type 2 diabetes mellitus with diabetic chronic kidney disease; K76.6 Portal hypertension; T82.42XA Displacement of vascular dialysis catheter, initial encounter; Y84.1 Kidney dialysis as the cause of abnormal reaction of the patient, or of later complication, without mention of misadventure at the time of the procedure; E87.70 Fluid overload, unspecified; N18.6 End stage renal disease; Z99.2 Dependence on renal dialysis; D63.1 Anemia in chronic kidney disease; K20.9 Esophagitis, unspecified; K70.30 Alcoholic cirrhosis of liver without ascites; K31.89 Other diseases of stomach and duodenum; K29.80 Duodenitis without bleeding; Z89.512 Acquired absence of left leg below knee; Z79.4 Long term (current) use of insulin; F10.21 Alcohol dependence, in remission; R00.1 Bradycardia, unspecified
CPT/HCPCS: 36415; 71045; 76000; 76700; 80048; 80053; 80061; 81003; 82140; 82550; 82607; 82728; 82746; 82962; 82977; 83010; 83036; 83540; 83550; 83615; 83690; 83735; 83880; 84100; 84443; 84484; 84550; 85007; 85025; 85384; 85610; 85660; 85730; 86140; 86703; 86705; 86709; 86803; 86850; 86900; 86901; 86920; 87040; 87340; 93005; 93306; 93971; 94003; 94150; 99285; J1815